=== PATIENT | female | born 1945 | race Caucasian/White ===

== ENCOUNTER 2017-11-24 17:36 | Inpatient (IN) | payer OTHER ==
[~2017-11-24] VITALS: Ht 157.5 cm; Wt 97.3 kg
--- NOTE | ~2017-11-24 | EKG ---
[place] [address] ELECTROCARDIOGRAM REPORT Name: RUPINDER BRADEN Room: [address] IN [facility]#: [id number] Admission: 11/24/17 Attend Phys: Amol Rodriguez MD Discharge: Date of : 41 Report #: [id number] THIS REPORT FOR: //name// [facility] ED Test Date: 2017-11-24 Test Time: 17:55:41 Pat Name: RUPINDER BRADEN Department: Room: Gender: F Chief Of Staff Doctor: : 1945 Requested By: Gurpreet Mohr Order Number: [id number] MD: Measurements Intervals [place] Rate: 133 P: 48 CO: 151 QRS: -21 QRSD: 89 T: 63 QT: 275 QTc: 409 Interpretive Statements Sinus tachycardia Borderline left axis deviation Consider anterior infarct Compared to ECG 08/13/2013 22:04:23 Myocardial infarct finding now present Sinus rhythm no longer present [email or web address] By: 1755 1755 Epiphany EpiphanyMD /EPI
[~2017-11-24 17:36] MED LIST: ACETAMINOPHEN325 M1 PO; ACTOPLUS MET 11 EAC1; ACTOS 30 MG TAB30 MG; AMARYL4 MG PO; COLACE 100 MG100 MG PO; DIFLUCAN150 MG; GLUCOPHAGE1000 MG; LAXATIVE OF CHOICE; LISINOPRIL-HCT1 EAC1; NITROQUICK0.4 MG; NORCO 5-325 TA1 EACH PO; TOBREX5 ML OP; [UNRECOGNIZED DRUG - OTHER]
[2017-11-24 17:47] VITALS: BP 108/84
[2017-11-24] MEDS ORDERED: CINNAMON500 MG PO (18:44)
[2017-11-24] MEDS ORDERED: LANTUS100 UNIT/M SUBQ (18:45)
[2017-11-24] MEDS ORDERED: FLAXSEED1000 MG PO (18:45)
[2017-11-24] MEDS ORDERED: GLUCOTROL5 MG PO (18:45)
[2017-11-24] MEDS ORDERED: DIFLUCAN200 MG PO (18:45)
[2017-11-24] MEDS ORDERED: NAPROSYN500 MG PO (18:46)
[2017-11-24] MEDS ORDERED: OMEPRAZOLE20 M2 PO (18:46)
[2017-11-24 19:08] LABS: HEMATOCRIT 25.9 % (37.0-47.0); HEMOGLOBIN 8.6 gm/dL (12.0-15.0); MCH 27.3 pg (26.0-34.0); MCHC 33.2 g/dL (28.0-37.0); MCV 82.3 fL (80.0-100.0); MPV 9.5 fl. (7.2-11.1); NUCLEATED RBCS 0 /100WBC; PLATELET COUNT* 138 thou/uL (150-400); RBC 3.14 mil/uL (4.20-5.00); RDW-CV 15.4 % (10.5-14.5); WBC 34.6 thou/uL (4.0-11.0)
[2017-11-24 19:13] LABS: INR 1.3; PROTIME 12.7 Seconds (9.20-11.50)
[2017-11-24 19:14] LABS: ANION GAP 15 mmol/L (7-16); BUN 64 mg/dL (7-18); CALCIUM 8.2 mg/dL (8.5-10.1); CHLORIDE 97 mmol/L (98-107); CO2 16 mmol/L (21-32); CREATININE 3.2 mg/dL (0.6-1.3); GLUCOSE 248 mg/dL (70-99); POTASSIUM 4.7 mmol/L (3.5-5.1); SODIUM 128 mmol/L (136-145)
[2017-11-24 19:24] LABS: ABSOLUTE MONOCYTES 0.3 thou/uL (0.0-1.2); ABSOLUTE NEUTROPHILS 33.2 thou/uL (1.6-8.1)
[2017-11-24 19:32] LABS: ALBUMIN 2.2 g/dL (3.4-5.0); ALKALINE PHOSPHATASE 55 U/L (46-116); CK-MB MASS 3.6 ng/mL (<0.5-3.6); LIPASE 39 U/L (73-393); MAGNESIUM 1.2 mg/dL (1.8-2.4); NT-PRO BRAIN NAT PEPTIDE 7452 pg/mL (<300); SGOT 37 U/L (15-37); SGPT 28 U/L (30-65); TOTAL BILIRUBIN 0.4 mg/dL (<0.1-1.0); TOTAL PROTEIN 5.9 g/dL (6.4-8.2); TROPONIN-I LEVEL <0.06 ng/mL (<0.06)
[2017-11-24 21:53] LABS: URINE BLOOD 3+ (Negative); URINE CLARITY TURBID; URINE COLOR BROWN; URINE GLUCOSE-RANDOM NEGATIVE (Negative); URINE KETONES NEGATIVE (Negative); URINE NITRITE-REFLEX NEGATIVE (Negative); URINE PROTEIN 3+ (Negative); URINE UROBILINOGEN 0.2 E.U./dl (0.2-1.0)
[2017-11-24 21:59] LABS: ICTOTEST (BILI CONFIRMATORY) Negative (Negative); URINE BILIRUBIN 1+ (Negative); URINE LEUKOCYTES-REFLEX 3+ (Negative)
[2017-11-24 22:20] VITALS: BP 144/58
[2017-11-24 22:20] LABS: CASTS None Seen /LPF (None Seen)
[2017-11-24 22:21] LABS: SQUAMOUS 4-10 Moderate /LPF (0-3); URINE RBC >20 Many /HPF (0-2); URINE WBC-REFLEX >25 Many /HPF (0-5)
[2017-11-24 22:22] LABS: CRYSTALS None Seen /LPF (None Seen)
[2017-11-24 23:15] VITALS: BP 136/61
[2017-11-25] VITALS (20 sets, daily range): BP systolic 102–142; BP diastolic 51–67
[2017-11-25 04:39] LABS: ABSOLUTE EOSINOPHILS 0.1 thou/uL (0.0-0.7); ABSOLUTE LYMPHOCYTES 0.3 thou/uL (0.8-5.3); ABSOLUTE MONOCYTES 0.7 thou/uL (0.0-1.2); ABSOLUTE NEUTROPHILS 27.4 thou/uL (1.6-8.1); BASOPHILS 0.1 %; EOSINOPHILS 0.2 %; HEMATOCRIT 27.2 % (37.0-47.0); MCH 27.4 pg (26.0-34.0); MCHC 33.2 g/dL (28.0-37.0); MCV 82.5 fL (80.0-100.0); MONOCYTES 2.5 %; MPV 9.7 fl. (7.2-11.1); NUCLEATED RBCS 0 /100WBC; PLATELET COUNT* 120 thou/uL (150-400); POLYS 96.2 %; RBC 3.29 mil/uL (4.20-5.00); RDW-CV 15.4 % (10.5-14.5); WBC 28.5 thou/uL (4.0-11.0)
[2017-11-25 04:47] LABS: ALBUMIN 2.1 g/dL (3.4-5.0); CALCIUM 8.5 mg/dL (8.5-10.1); CREATININE 3.6 mg/dL (0.6-1.3); POTASSIUM 4.6 mmol/L (3.5-5.1); TOTAL BILIRUBIN 0.4 mg/dL (<0.1-1.0)
[2017-11-25] MEDS ORDERED: IBUPROFEN 200200 M1 PO (07:49)
[2017-11-25] MEDS ORDERED: ZOCOR20 MG PO (07:49)
--- NOTE | 2017-11-25 08:01 | NUR ---
Pt admitted to ICU from ED at 2315. Pt tachypneic upon arrival, and O2 sats dropped to upper 80s on 4L per NC. BIPAP placed, and O2 sats improved. RR decreased to 20s and appears at ease, though c/o dry mouth d/t BIPAP. C/O pain to back and abdomen. Tylenol given and position changed which yielded some relief. VSS. Voided 75 ml purulent and blood-tinged urine X2 overnight, voiding per bed truong. Will continue to monitor.
--- NOTE | 2017-11-25 09:43 | NUR ---
PATIENT CARE ASSUMED AT 0700. PATIENT AOX4, ON BIPAP. BIPAP REMOVED AND PLACED ON 4L NC, SAT AT THIS TIME 97%. UROLOGY CONSULTED FOR 7MM RENAL STONE. STATED THAT THEY WILL TAKE PATIENT TO SURGERY AT [address]ENT FOR PYLEONEPHRITIS. CONSENT OBTAINED FROM PATIENT. UNABLE TO REACH . SON, MARGARITO, CALLED AND UPDATED ON PLAN OF CARE AND ENCOURAGED HIM TO CALL THE PATIENT'S . DENTURES PLACED IN DENTURE CUP WITH EFFERDENT. PATIENT'S [place] RING PLACED IN BELONGINGS. MOUTH SWABS PROVIDED WITH MOUTH MOISTURIZER. HEMATOLOGY VISITED WITH PATIENT FOR ENLARGED ABDOMINAL LYMPH NODES. STATED THEY WERE ALMOST THE SAME THE PREVIOUS SCAN IN 2015, BUT THAT PATIENT SHOULD TAKE CARE OF KIDNEY INFECTION FIRST, AND SEE HIM IN 4 WEEKS OUTPATIENT IN HIS CLINIC FOR POSSIBLE PET SCAN. PATIENT EDUCATION REINFORCED BY NURSE, AND SHE VOICES UNDERSTANDING OF THIS. PATIENT REPORTS RIGHT FLANK PAIN THAT RADIATES TO ABDOMEN, BUT DENIES NEEDS FOR MEDICATION AT THIS TIME. REPOSITIONED FOR COMOFRT. DENIES FURTHER NEEDS FROM NURSING. AWAITING SURGICAL INTERVENTION AT 1130.
--- NOTE | 2017-11-25 10:35 | NUR ---
SPOKE WITH PT, SHE LIVES WITH HER , HAS BEEN ACTIVE AND INDEP. PT DENIES ANY DISCHARGE NEEDS AT THIS TIME. PT GOING TO SURGERY THIS AFTERNOON FOR STENT PLACEMENT FOR OBSTRUCTING KIDNEY STONES. CASE MGT TO CONTINUE TO FOLLOW.
--- NOTE | 2017-11-25 13:47 | NUR ---
PATIENT PLACED ON BEDPAN, UPON TAKING PATIENT OFF BEDPAN, HR NOTED TO BE 150S-170S AND IRREGULAR. EKG COMPLETED WHICH RESULTED A-FIB. ANESTHESIOLOGY IN ROOM, WHO ORDERED CARDIOLOGY CONSULT. DR MENJIVAR ON THE FLOOR, ONETIME DIGOXIN ORDERED AND GIVEN. AMIODARONE BOLUS GIVEN. AMIO GTT INFUSING. DR ROBERT IN TO SEE PATIENT, WHO STATED HE WAS TAKING PATIENT TO OR REGAURDLESS. PATIENT LEFT UNIT AT 1340 WITH OR NURSES. AMIO INFUSING AT TRANSFER TO OR.
[2017-11-25 13:58] LABS: CHOLESTEROL 77 mg/dL (<200); HDL CHOLESTEROL 10 mg/dL (>40); LDL CHOLESTEROL 34 mg/dL (<100); SERUM ASSESSMENT Clear; TC:HDL 7.7 Ratio (Not establshd); TRIGLYCERIDE 165 mg/dL (<150); VLDL 33 mg/dL (<40)
--- NOTE | 2017-11-25 14:37 | NUR ---
PATIENT RETURNED FROM OR AT 1428. AOX4, COMPLAINING OF NEEDING TO URINATE. URINARY CATHETER NOW PRESENT. PATIENT REMAINS A-FIB RVR WITH RATE 130-160S. AMIO GTT STILL RUNNING. PATIENT REQUIRING MORE O2, PLACED BACK ON BIPAP WITH FIO2 OF 40%. DR GRAY NOTIFIED OF PATIENT STATUS.
--- NOTE | 2017-11-25 15:52 | 2DMMODE ---
[place] [address] 2 D/M-MODE ECHOCARDIOGRAM Name: RUPINDER BRADEN Room: [address] IN [facility]#: [id number] Admission: 11/24/17 Attend Phys: Aoml Rodriguez, Discharge: Date of : 41 Date of Service: 11/25/17 1552 Report #: [id number] THIS REPORT FOR: //name// APPROVED REPORT Study performed: 11/25/2017 14:31:19 EXAM: Comprehensive 2D, Doppler, and color-flow Echocardiogram Patient Location: In-Patient Room #: [facility] [place] Status: routine BSA: 1.97 HR: 159 bpm BP: 134/65 mmHg Rhythm: Atrial Fibrillation Other Information Study Quality: Good Indications Atrial Fibrillation Sepsis 2D Dimensions LVEF(%): 87.45 (>50%) IVSd: 9.49 (7-11mm) LVOT Diam: 18.28 (18-24mm) LVDd: 36.43 mm PWd: 8.65 (7-11mm) Ascending Ao: 29.92 (22-36mm) LVDs: 15.88 (25-40mm) Aortic Root: 29.93 mm Coughlin's LVEF: 87.45 % Volumes Left Atrial Volume (Systole) LA ESV Index: 17.20 mL/m2 Aortic Valve AoV Peak Edson.: 1.52 m/s AO Peak Gr.: 9.19 mmHg LVOT Max P.39 mmHg AO Mean Gr.: 5.36 mmHg LVOT Mean P.80 mmHg LVOT Max V: 1.26 m/s AO V2 VTI: 18.50 cm LVOT Mean V: 0.76 m/s CHARLINE (VTI): 2.05 cm2 LVOT V1 VTI: 14.44 [place] [address] 2 D/M-MODE ECHOCARDIOGRAM Name: RUPINDER BRADEN Room: [address] IN [facility].#: [id number] Admission: 11/24/17 Attend Phys: Amol Rodriguez, Discharge: Date of : 41 Date of Service: 11/25/17 1552 Report #: [id number] PV Peak Edson.: 1.23 m/s PV Peak Gr.: 6.04 mmHg Tricuspid Valve RAP Estimate: 5.00 mmHg TR Peak Gr.: 32.30 mmHg RVSP: 37.30 mmHg PA Pressure: 37.00 mmHg Left Ventricle The left ventricle is normal size. There is normal LV segmental wall motion. There is normal left ventricular wall thickness. Left ventricular systolic function is hyperdynamic. LVEF is >70%. This study is not technically sufficient to allow evaluation of the LV diastolic function. Right Ventricle The right ventricle is normal size. The right ventricular systolic function is normal. Atria The left atrium size is normal. The right atrium size is normal. Aortic Valve The Aortic valve is sclerotic. No aortic regurgitation is present. There is no aortic valvular stenosis. Mitral Valve The mitral valve is normal in structure. There is no mitral valve regurgitation noted. No evidence of mitral valve stenosis. Tricuspid Valve The tricuspid valve is normal in structure. Trace tricuspid regurgitation. Mild pulmonary hypertension. The RVSP is 40-45 mmHg. Pulmonic Valve The pulmonary valve is normal in structure. There is no pulmonic valvular regurgitation. Great Vessels The aortic root is normal in size. IVC is normal in size and collapses with >50% inspiration Pericardium There is no pericard[place] [address] 2 D/M-MODE ECHOCARDIOGRAM Name: RUPINDER BRADEN Room: [address]#: [id number] Admission: 11/24/17 Attend Phys: Amol Rodriguez, Discharge: Date of : 41 Date of Service: 11/25/17 1552 Report #: [id number] <Conclusion> The left ventricle is normal size. There is normal left ventricular wall thickness. Left ventricular systolic function is hyperdynamic. LVEF is >70%. This study is not technically sufficient to allow evaluation of the LV diastolic function. The Aortic valve is sclerotic. Trace tricuspid regurgitation. Mild pulmonary hypertension. The RVSP is 40-45 mmHg. <ELECTRONICALLY SIGNED> By: Nelson Galloway MD, FACC 11/25/17 [phone] Nelson Galloway MD, FACC /INF
--- NOTE | 2017-11-25 17:30 | NUR ---
PATIENT PROGRESSING TOWARDS GOALS. RIGHT URETERAL STENT PLACED BY UROLOGY TODAY. HAISRTON CATEHETER IN PLACE. OUTPUT POOR THIS SHIFT, DR GRAY AWARE. REFER TO I&O. PAIN CONTROLLED NOW AT THIS TIME POST DIALUDID ADMINISTRATION. PATIENT STATES SHE ONLY HAS THE SENSATION TO PEE. MESSAGE SENT TO PHYSICIAN PROGRAM OFFICER FOR PYRIDIUM PRN. PATIENT HR CONVERTED TO SINUS TACYCARDIA AT 1629 AFTER SECOND ADMINISTRATION OF DIGOXIN. RATE 110S TO 120S. ALL OTHER VITALS REMAIN WNL. AFEBRILE TODAY. PATIENT GIVEN PUDDING WITH INSULIN ADMINISTRATION. TOLERATED WELL. REGULAR DIET ORDERED FOR THIS EVENING. WATER PITCHER PROVIDED PER PATIENT REQUEST. DENIES FURTHER NEEDS FROM NURSING.
[2017-11-26] VITALS (9 sets, daily range): BP systolic 113–147; BP diastolic 43–63
[2017-11-26 04:47] LABS: ABSOLUTE EOSINOPHILS 0.3 thou/uL (0.0-0.7); ABSOLUTE LYMPHOCYTES 0.4 thou/uL (0.8-5.3); ABSOLUTE MONOCYTES 0.4 thou/uL (0.0-1.2); ABSOLUTE NEUTROPHILS 22.6 thou/uL (1.6-8.1); BASOPHILS 0.1 %; EOSINOPHILS 1.2 %; HEMATOCRIT 24.5 % (37.0-47.0); HEMOGLOBIN 8.1 gm/dL (12.0-15.0); LYMPHOCYTES 1.6 %; MCH 27.2 pg (26.0-34.0); MCHC 33.2 g/dL (28.0-37.0); MCV 82.1 fL (80.0-100.0); MONOCYTES 1.6 %; MPV 9.9 fl. (7.2-11.1); NUCLEATED RBCS 0 /100WBC; PLATELET COUNT* 63 thou/uL (150-400); POLYS 95.5 %; RBC 2.98 mil/uL (4.20-5.00); RDW-CV 15.9 % (10.5-14.5); WBC 23.7 thou/uL (4.0-11.0)
[2017-11-26 04:58] LABS: ALBUMIN 1.8 g/dL (3.4-5.0); CALCIUM 8.1 mg/dL (8.5-10.1); CREATININE 3.6 mg/dL (0.6-1.3); POTASSIUM 4.4 mmol/L (3.5-5.1); TOTAL BILIRUBIN 0.4 mg/dL (<0.1-1.0); TOTAL PROTEIN 5.7 g/dL (6.4-8.2)
[2017-11-26 05:25] LABS: PREALBUMIN 10.2 mg/dL (18.0-35.7)
--- NOTE | 2017-11-26 06:45 | NUR ---
Pt repositioned about every 2 hours for comfort. O2 at 6L per NC. Pt was SOA at bedtime, but refused BIPAP when offered. After repositioning and adding humidifier to O2, pt reported she felt better but c/o abd pain. Dilaudid given per order, and pt rested well afterwards. Poor urine output, 225 mls purulent blood-tinged urine out per adame. Cr remains 3.6. Na+ down from 128 to 126. Platelets down to 63. Pt receiving SubQ heparin. VSS. No complaints this am. Will continue to monitor.
--- NOTE | 2017-11-26 08:01 | CON ---
[address] [address] CONSULTATION Name: RUPINDER BRADEN Room: [address] IN [facility]#: [id number] Admission: 11/24/17 Attend Phys: Amol Rodriguez MD Discharge: Date of : 41 Report #: [id number] THIS REPORT FOR: //name// CC: Amol Salas DATE OF SERVICE: 11/25/2017 ATTENDING PHYSICIAN: Amol Rodriguez MD REASON FOR EVALUATION: Obstructive uropathy complicated by gram-negative septicemia. HISTORY OF PRESENT ILLNESS: Chart reviewed, the patient examined. This is a 72-year-old with a fairly significant medical history, has diabetes mellitus who was admitted subsequent to a fall. She became weak after at least 48 hours of she describes as dry heaves. Evaluation noted marked pyuria. CT evidence showed 7 mm calculus at the level of the right ureterovesicular junction, mild to moderate hydronephrosis and perinephric stranding. Blood cultures now with growth of gram-negative rods. Initial lactic acid of 3.3, repeat was 1.8. She is at least mildly encephalopathic and has admitted to some breathing difficulties. ALLERGIES: Oxybutynin. CURRENT MEDICATIONS: Include pantoprazole, ceftazidime, Flagyl, ipratropium, albuterol inhaler, p.r.n. analgesics, antiemetics. PAST MEDICAL HISTORY: Includes hyperlipidemia, peripheral neuropathy, diverticulosis, reflux, diabetes mellitus, hypertension, osteoarthritis, anemia. SOCIAL HISTORY: Nonsmoker, no ethanol. FAMILY HISTORY: Noncontributory. REVIEW OF SYSTEMS: As above. PHYSICAL EXAMINATION: GENERAL: She appears ill. She is responsive, moderate distress, appears somewhat chronically ill, undernourished. VITAL SIGNS: Temperature 99, T-max more recently 98.3, pulse 114, respirations 30, blood pressure 142/67. SKIN: Warm, dry, no rashes. HEENT: Unremarkable. NECK: Supple. LUNGS: Few [place] [address] CONSULTATION Name: RUPINDER BRADEN Room: [address]#: [id number] Admission: 11/24/17 Attend Phys: Amol Rodriguez MD Discharge: Date of : 41 Report #: [id number] HEART: Regular, tachycardic. I do not appreciate any murmur. ABDOMEN: Soft, nontender. There are no peritoneal signs. GENITOURINARY: Deferred. RECTAL: Deferred. LABORATORY DATA: Blood cultures described above, 2/ with gram-negative rods, collected last evening. CBC: White count of 28.5 which is down from 34.6 on admission, H and H 9.0 and 27.2, platelets of 120. Electrolytes: Sodium 128, potassium 4.6, chloride 90, bicarbonate is 16, BUN and creatinine 72 and 3.6, glucose of 241. Albumin of 2.1, total protein 6.0. LFTs unremarkable. Estimated GFR of 12. Prealbumin of 13.7. ASSESSMENT: Obstructive uropathy secondary to ureteral stone on the right. Noted plans for surgery. We will continue empiric therapy, ceftazidime should be adequate, is adjusted for renal dysfunction at 1 gram daily. I think she will turn around fairly quickly of the obstruction. We will monitor expectantly. Certainly at risk for other complications such as pneumonitis. <ELECTRONICALLY SIGNED> By: Miguel Jeong MD 11/26/17 0801 1201 1922Joheather Jeong MD /nt
--- NOTE | 2017-11-26 08:09 | CON ---
[address] [address] CONSULTATION Name: RUPINDER BRADEN Room: [address] IN .R.#: [id number] Admission: 11/24/17 Attend Phys: Amol Rodriguez MD Discharge: Date of : 41 Report #: [id number] THIS REPORT FOR: //name// CC: Amol Salas DATE OF SERVICE: 11/25/2017 REASON FOR CONSULTATION: Mesenteric lymphadenopathy. SUBJECTIVE: This is a 72-year-old female who was brought to the Emergency Room because of fall. She reported some nausea, vomiting and diarrhea. However, her legs per the patient gave away and fell down. There is no previous injury or trauma. She was hypotensive upon arrival. The patient denies any B symptoms like drenching night sweats, fever, weight loss. Initial evaluation including CT of abdomen revealed a 7 mm calculus at the right ureterovesicular junction. There was also moderate right hydronephrosis with perinephric soft tissue stranding, mild prominent mesenteric lymph nodes nonspecific, could be reactive, similar were seen in April 2015. However, there was increased number of the size of lymph nodes compared to prior examination. CT of the chest showed patchy bibasilar atelectasis/pneumonitis with a small pleural effusion. REVIEW OF SYSTEMS: All systems were reviewed. It was negative except the above. PAST MEDICAL HISTORY: Dyslipidemia, peripheral neuropathy, diverticulosis, GERD, diabetes mellitus, hypertension, osteoarthritis. PAST SURGICAL HISTORY: Hysterectomy, gallbladder, D and C. MEDICATIONS: Per admission list. ALLERGIES: OXYBUTYNIN. SOCIAL HISTORY: No smoking, no alcohol abuse, no drug abuse. FAMILY HISTORY: Noncontributory. PHYSICAL EXAMINATION: VITAL SIGNS: Temperature 36.8, pulse is 110, respirations 20, blood pressure is 135/64, SpO2 was 97% on BiPAP with 4 liters of nasal cannula. GENERAL: The patient looked tired. However, she was weak and able to answer questions. LUNGS: Decreased breathing sounds with mild fine crackles. ABDOMEN: Mild generalized tenderness. However, [place] [address] CONSULTATION Name: RUPINDER BRADEN Room: [address] IN [facility]#: [id number] Admission: 11/24/17 Attend Phys: Amol Rodriguez MD Discharge: Date of : 41 Report #: [id number]. EXTREMITIES: +1 edema bilaterally. LABORATORY DATA: Today, WBC 28.5, hemoglobin 9.9, platelets 120. Sodium is 128, creatinine 3.6. IMAGING: As mentioned above. ASSESSMENT AND PLAN: A 72-year-old female who has been evaluated because of mild prominent mesenteric lymphadenopathy that was present back in 2014. However, there was increase in size and number, was admitted because of urosepsis and renal failure and right pleural effusion. RECOMMENDATION: At this point, the patient is receiving medical treatment with antibiotics. The patient was going for right stent placement due to hydronephrosis. I recommended to obtain a PET/CT scan as an outpatient after she has recovered from an infection and arranged for Interventional Radiology biopsy as an outpatient. At this point, I prefer to avoid any biopsies with active infection. I will follow the patient during hospitalization. <ELECTRONICALLY SIGNED> By: Alonzo Constantino MD 11/26/17 0809 1009 [id number] Constantino MD /nt
--- NOTE | 2017-11-26 10:07 | NUR ---
PATIENT CARE ASSUMED AT 0700. PATIENT AOX4 UPON ASSUMING CARE. DENIES PAIN, JUST REPORTS IRRITATION TO BLADDER FROM CATEHTER. PYRIDIUM GIVEN WITH MORNING MEDICATIONS, PATIENT REPORTED COMPLETE RELIEF. VITALS STABLE. TRACING SINUS TACH ON SENIOR RELIABILITY ENGINEER. AMIODARONE GTT AT 0.5 MG UPON ASSUMING CARE, CARDIOLOGY CONVERTED TO PO MEDICATIONS. 0.45% NS WITH 75 MEQ BICARB INFUSING PER ORDERS AT 150 ML/HR UPON ASSUMING CARE, NEPHROLOGY DECREASED RATE TO 60 ML/HR. ON 6L NC WITH O2 SAT 95-97%. ATTEMPTED TO USE BED MOHR X2, NO BOWEL MOVEMENT. PASSING FLATUS. DENIES NEW CONCERNS FOR NURSING STAFF. DOWNGRADED TO TELEMETRY STATUS. REPORT GIVEN TO RAGHAV MILLER. PENDING TRANSPORT.
--- NOTE | 2017-11-26 10:12 | EKG ---
[place] [address] ELECTROCARDIOGRAM REPORT Name: RUPINDER BRADEN Room: [address] ADM IN .R.#: [id number] Admission: 11/24/17 Attend Phys: Amol Rodriguez MD Discharge: Date of : 41 Report #: [id number] THIS REPORT FOR: //name// [facility] Test Date: 2017-11-25 Test Time: 12:50:16 Pat Name: RUPINDER BRADEN Department: Room: [address] Gender: F Remote Medical Coder: UNKNOWN : 1945 Requested By: Nelson Galloway Order Number: [id number] Reading MD: Lucho Trinh Measurements Intervals [place] Rate: 153 P: HI: QRS: -22 QRSD: 91 T: 91 QT: 278 QTc: 444 Interpretive Statements Atrial fibrillation with rapid V-rate Borderline left axis deviation Low voltage, precordial leads Abnormal R-wave progression, late transition Nonspecific T abnormalities, lateral leads Compared to ECG 11/24/2017 17:55:41 Low QRS voltage now present T-wave abnormality now present Sinus tachycardia no longer present Electronically Signed On 11-26-2017 10:12:21 CDT by Lucho Trinh [email or web address] <ELECTRONICALLY SIGNED> By: Lucho Trinh MD, FACC 11/26/17 1012 1250 1250 Lucho Trinh MD, [facility] /EPI
[2017-11-26 10:15] LABS: APTT 42.5 Seconds (25.0-31.3); INR 1.1; PROTIME 11.1 Seconds (9.20-11.50)
--- NOTE | 2017-11-26 11:49 | NUR ---
RECEIVED REPORT FROM SHERON IN ICU AND ASSUMED CARE OF PT @ 1050.PT IS A/O,VSS,TRACING ST ON THE MONITOR.THIS NURSE DID ASSESSMENT AND REVIEWED PREVIOUS NURSE ASSESSMENT AND AGREES.IVS PATENT WITH FLUIDS INFUSING @ 60ML/HR.PT IS CALM AND COOPERATIVE WITH NO C/O PAIN AT TIME OF ASSESSMENT.FAMILY AT BEDSIDE.PT IS BEDREST WITH Q2 HOUR TURNS.WILL CONTINUE TO MONITOR.
--- NOTE | 2017-11-26 18:12 | NUR ---
VSS.PATROL POLICE SERGEANT IN PLACE.PT IS ST BUT GOES IN AND OUT OF AFIB WITH RATE 110S-130S.CARDIOLOGY NOTIFIED, THEIR RECOMMENDATIONS WERE TO CALL THEM BACK IF SUSTAINS IN THE 130S-140S.PT REMAINS ON 6L O2 NC.DENIED PAIN.IVF INFUSING PER ORDERS.HAIRSTON SECURE AND PATENT.HOURLY ROUNDING COMPLETED FOR PT SAFETY.PT REPOSITIONED EVERY TWO HOURS.CALL LIGHT AND FALL PRECAUTIONS IN PLACE.WILL CONTINUE TO MONITOR FOR DURATION OF SHIFT.BOONE GROSS AND MUCINEX ORDERED FOR COUGH PER PT REQUEST.
[2017-11-26 21:06] LABS: IgA 324 mg/dL (64-422); IgG 602 mg/dL (700-1600); IgM 26 mg/dL (26-217)
[2017-11-27 00:14] VITALS: BP 150/67
[2017-11-27 04:00] VITALS: BP 144/68
[2017-11-27 04:36] LABS: ABSOLUTE EOSINOPHILS 0.2 thou/uL (0.0-0.7); ABSOLUTE LYMPHOCYTES 0.4 thou/uL (0.8-5.3); ABSOLUTE MONOCYTES 0.7 thou/uL (0.0-1.2); ABSOLUTE NEUTROPHILS 16.3 thou/uL (1.6-8.1); BASOPHILS 0.2 %; EOSINOPHILS 0.8 %; HEMATOCRIT 25.5 % (37.0-47.0); HEMOGLOBIN 8.5 gm/dL (12.0-15.0); LYMPHOCYTES 2.4 %; MCH 27.2 pg (26.0-34.0); MCHC 33.6 g/dL (28.0-37.0); MCV 81.1 fL (80.0-100.0); MONOCYTES 4.2 %; MPV 9.8 fl. (7.2-11.1); NUCLEATED RBCS 0 /100WBC; POLYS 92.4 %; RBC 3.14 mil/uL (4.20-5.00); RDW-CV 15.7 % (10.5-14.5); WBC 17.7 thou/uL (4.0-11.0)
[2017-11-27 04:39] LABS: PLATELET COUNT* 38 thou/uL (150-400)
[2017-11-27 05:04] LABS: ALBUMIN 1.7 g/dL (3.4-5.0); CALCIUM 7.9 mg/dL (8.5-10.1); CREATININE 3.2 mg/dL (0.6-1.3); POTASSIUM 4.4 mmol/L (3.5-5.1); TOTAL BILIRUBIN 0.5 mg/dL (<0.1-1.0); TOTAL PROTEIN 5.7 g/dL (6.4-8.2)
[2017-11-27 05:10] LABS: ALBUMIN 1.8 g/dL (3.4-5.0); CALCIUM 7.7 mg/dL (8.5-10.1); CREATININE 3.3 mg/dL (0.6-1.3); MAGNESIUM 1.7 mg/dL (1.8-2.4); PHOSPHORUS* 2.4 mg/dL (2.5-4.9); POTASSIUM 4.2 mmol/L (3.5-5.1)
--- NOTE | 2017-11-27 06:57 | NUR ---
PATIENT RESTED IN BED, NO ACUTE CHANGES. PATIENT IS NOT SHOWING SIGNS DISTRESS. FALL PRECAUTIONS IN PLACE, BED ALARM ON, CALL LIGHT WITHIN REACH. PATIENT TUNRED Q 2 HOURS, NO KIDNEY STONES NOTED IN URINE.
--- NOTE | 2017-11-27 07:04 | NUR ---
DOCTOR NOTIFIED, OF CRITICAL LAB, PLT COUNT 38. NO NEW ORDERS.
[2017-11-27 07:58] VITALS: BP 106/61
--- NOTE | 2017-11-27 09:12 | CON ---
[address] [address] CONSULTATION Name: RUPINDER BRADEN Room: [address] IN .R.#: [id number] Admission: 11/24/17 Attend Phys: Amol Rodriguez MD Discharge: Date of : 41 Report #: [id number] THIS REPORT FOR: //name// CC: Amol Salas DATE OF SERVICE: 11/25/2017 CONSULTING PHYSICIAN: Amol Rodriguez MD. REASON FOR NEPHROLOGY CONSULTATION: Acute kidney injury. REASON FOR ADMISSION: Fall at home and increasing weakness. HISTORY OF PRESENT ILLNESS: This is a 72-year-old female who has a past medical history of diabetes mellitus, hypertension, hyperlipidemia, who came in after a fall at home. The patient's stated the patient was very weak and she has been having nausea, vomiting, diarrhea as well as pain on urination for the past few days and then finally, her legs gave way and she had a fall yesterday and that is why she was brought to the hospital. She was found to be quite hypotensive on arrival to the Emergency Room and her creatinine was found to be 3.2, sodium was found to be 128, and white count of 34.6. She was also found to have evidence of UTI, in fact right-sided pyelonephritis with a right UVJ 7 mm kidney stone with gsux-ky-wvmbqlic right hydronephrosis and perinephric stranding. She also had evidence of mesenteric lymphadenopathy which the patient is not aware from the past. She was started on antibiotics as well as IV fluids. Last night, she has made only 150 mL of urine and her creatinine has gone up to 3.6. Urology has also evaluated the patient already and she is going for right-sided ureteral stent placement today. The patient is just feeling very drowsy, but she is arousable and she is able to talk, but she is not able to provide full review of systems, she is just very weak. It seems that her diarrhea has improved. At home in addition to other medications, she also takes lisinopril, hydrochlorothiazide, metformin, as well as naproxen 500 mg twice a day. Her recent baseline creatinine is not known, but her creatinine was 1.2 in 2015. REVIEW OF SYSTEMS: As mentioned above, quite drowsy, but she is arousable and she is able to answer a few questions but not able to provide full review of systems. She is just very tired. She did have diarrhea, nausea, vomiting and burning on urination before she came in. Other review of systems is limited. ALLERGIES: OXYBUTYNIN. HOME MEDICATIONS: Which include pioglitazone, lisinopril, hydrochlorothiazide, metformin, cinnamon bark, flaxseed oil, fluconazole, glipizide, Lantus, naproxen, [place] [address] CONSULTATION Name: RUPINDER BRADEN Room: [address] IN [facility].#: [id number] Admission: 11/24/17 Attend Phys: Amol Rodriguez MD Discharge: Date of : 43 Report #: [id number] PAST MEDICAL AND SURGICAL HISTORY: Hyperlipidemia, hysterectomy, neuropathy in feet, gallbladder removal, diverticulosis, GERD, diabetes type 2, hypertension, osteoarthritis, anemia. FAMILY HISTORY: No history of kidney disease in the family that I know of, the patient did not report any family history of kidney problems. SOCIAL HISTORY: Lives at home with her . Does not smoke, drink alcohol or use recreational drugs. PHYSICAL EXAMINATION: VITAL SIGNS: Blood pressure was 135/64, temperature 36.6, pulse rate was 110, respiratory rate was 20, pulse ox was 97% on nasal cannula. GENERAL: She is drowsy, but she is arousable and seems to be oriented, but just very weak and not able to answer questions. HEAD, EYES, EARS, NOSE, AND THROAT: Mucous membranes are dry. NECK: No JVD. CHEST: Diminished breath sounds. No crackles or wheezing. CARDIOVASCULAR: S1, S2 normal. No murmurs heard. ABDOMEN: Soft, nondistended, nontender, and bowel sounds diminished. EXTREMITIES: There is no lower extremity edema, symmetric lower extremities. NEUROLOGIC FUNCTION: Gross neurological function seems to be intact. PSYCHIATRIC: Mood seems to be normal. GENITOURINARY: She has a Hoffman catheter right now, cannot check for CVA tenderness since the patient was not comfortable and has minimal urine output and cloudy urine. LABORATORY DATA: From this morning, WBC 28.5, hemoglobin was 9.0, platelet count was 120. Corrected sodium was 130, bicarbonate was 16, creatinine was 3.6, BUN was 72. Other labs were reviewed. IMAGING: Abdominal pelvic CT and other CTs and x-rays were reviewed. ASSESSMENT AND PLAN: 1. Acute kidney injury, which is because of dehydration, lisinopril, hydrochlorothiazide as well as NSAIDs: The patient looks dehydrated and she also has sepsis because of acute pyelonephritis and was also taking WILY inhibitor and hydrochlorothiazide as well as NSAIDs at home. So, all these medications have been held. The patient is still not making much urine and her creatinine is going up. She has evidence of right-sided obstruction with rnss-cl-rwbtteui hydronephrosis and is supposed to go for stenting today, which should help with her kidney function. We do not have a recent baseline creatinine, it will be helpful to obtain that. Change her IV fluids from normal saline and the current bicarbonate drip to half normal saline with 1.5 amps of sodium bicarbonate at 125 mL an hour. Try to keep a mean arterial pressure more [facility] [address] [place] [address] CONSULTATION Name: RUPINDER BRADEN Room: [address] IN [facility]#: [id number] Admission: 11/24/17 Attend Phys: Amol Rodriguez MD Discharge: Date of : 43 Report #: [id number]. 2. Obstructive uropathy: The patient has right-sided kidney stone, no history of kidney stones in the past, with nztf-fj-yrbhenam hydronephrosis, Urology is on board. Also, has evidence of right-sided pyelonephritis likely because of the stone. The patient is supposed to get stenting today. 3. Mesenteric lymphadenopathy. Hematology has been consulted to evaluate that. 4. Anion gap metabolic acidosis: Bicarbonate drip as mentioned above. 5. Hyponatremia: Corrected sodium is 130 and hyponatremia is because of hypovolemic reasons and continue with fluids and sodium should get better. 6. Bacteremia with gram-negative rods, likely due to urinary tract infection: The patient is getting antibiotics for that. She is getting ceftazidime as per primary team. Follow cultures. We will defer to primary team for further management of this. Thank you for this consultation. We will continue to follow along with you and plan was discussed with the patient as well as the patient's nurse. I did spend more than 40 minutes of critical care time in reviewing the patient's chart, ordering medications, reviewing other orders and examining the patient and discussion with the patient and the patient's nurse. <ELECTRONICALLY SIGNED> By: Magda Sandhu MD 11/27/17 0912 [id number] [id number] Sandhu MD /nt
--- NOTE | 2017-11-27 10:32 | CON ---
[address] [address] CONSULTATION Name: RUPINDER BRADEN Room: [address] IN .R.#: [id number] Admission: 11/24/17 Attend Phys: Amol Rodriguez MD Discharge: Date of : 43 Report #: [id number] THIS REPORT FOR: //name// CC: Amol Salas DATE OF SERVICE: 11/25/2017 INDICATION: Atrial fibrillation with rapid ventricular response, new in onset. HISTORY OF PRESENT ILLNESS: The patient is a 72-year-old who was admitted to the hospital with nephrolithiasis and evidence of hydronephrosis on the right. In this setting, she was found to have UTI. She was felt to have sepsis. She was in the process of being evaluated for possible kidney stone retrieval when she developed atrial fibrillation with rapid ventricular response rate. She notes shortness of breath and chest discomfort with this. She has no prior significant cardiac history. Cardiac risk factors include hypertension, dyslipidemia, and type 2 diabetes mellitus. A 12-lead EKG shows low voltage without acute ST segment changes. There is atrial fibrillation with rapid ventricular response rate noted. PAST MEDICAL HISTORY: 1. Type 2 diabetes mellitus. 2. Hyperlipidemia. 3. Hypertension. 4. Peripheral neuropathy. 5. Diverticulosis. 6. GERD. 7. Polyarthritis. 8. Anemia. PAST SURGICAL HISTORY: 1. Hysterectomy. 2. Cholecystectomy. 3. D and C. FAMILY HISTORY: Noncontributory. SOCIAL HISTORY: The patient is a nonsmoker. She does not drink alcohol. PHYSICAL EXAMINATION: VITAL SIGNS: Heart rate presently in the 150s and 160s, blood pressure 120/64. GENERAL: This is an anxious appearing elderly female, who does not appear to be in overt distress. HEENT: Extraocular muscles intact. [place] [address] CONSULTATION Name: RUPINDER BRADEN Room: [address]#: [id number] Admission: 11/24/17 Attend Phys: Amol Rodriguez MD Discharge: Date of : 43 Report #: [id number] NECK: Shows no jugular venous distention. There are no carotid bruits. CHEST: Reveals diminished breath sounds without expiratory wheezes or rales. CARDIAC: Reveals tachycardic rhythm that is irregularly irregular without obvious gallop or murmur. ABDOMEN: Reveals normal bowel sounds. The abdomen is soft, nontender. EXTREMITIES: Shows no edema. SKIN: Warm and dry. A 12-lead EKG shows atrial fibrillation with rapid ventricular response rate without acute ST segment abnormalities. Labs are reviewed. Sodium 128, potassium 4.6, chloride 98, bicarbonate 16, BUN 72, creatinine 3.6, serum glucose 241. Troponin less than 0.06. White blood cell count 28.5, hemoglobin 9.0, platelet count 120,000. Stress test 2 weeks ago showed normal LV systolic function and no evidence of infarct or ischemia. Chest x-ray shows patchy infiltrates versus atelectasis. IMPRESSION AND RECOMMENDATIONS: 1. Atrial fibrillation with rapid ventricular response. At this point in time, we will bolus with amiodarone and started on amiodarone drip. I will also give bolus of digoxin and digoxin load if the rate remains elevated. We will obtain echocardiogram. 2. Hypertension, adequately controlled on current cardiac regimen. 3. Diabetes, per primary care physician. 4. Nephrolithiasis with hydronephrosis. Plans for possible stone retrieval in the near future. The patient not at prohibitive risk from a cardiac standpoint to undergo surgery. 5. Hyperlipidemia. We will need to check fasting lipid profile at some point in time. 6. Anemia, appears to be stable. 7. Chest discomfort, likely due to atrial fibrillation with rapid ventricular response rate. Recent stress test showed no evidence of ischemia. We will follow clinically. <ELECTRONICALLY SIGNED> By: Nelson Galloway MD, FACC 11/27/17 1032 1320 [id number] Galloway MD, FACC /nt
--- NOTE | 2017-11-27 10:33 | NUR ---
RECEIVED REPORT FROM [place] AND ASSUMED CARE OF PT @ 7460.PT IS A/O X 2-3 BUT LETHARGIC,VSS,TRACING ST WITH 1ST DEGREE ON THE MONITOR.LUNG SOUNDS ARE CLEAR DIMINSHED.IV LEFT AC PATENT WITH FLUIDS RUNNING @ 60ML/HR.IV LEFT WRIST PATENT AND SALINE LOCKED.HAIRSTON SECURE AND PATENT.PT IS CALM AND COOPERATIVE WITH NO C/O PAIN AT TIME OF ASSESSMENT.PT LEFT RESTING IN BED WITH CALL LIGHT AND FALL PRECAUTIONS IN [place]. WILL CONTINUE TO MONITOR.
[2017-11-27 11:30] VITALS: BP 151/59
[2017-11-27 16:00] VITALS: BP 151/63
--- NOTE | 2017-11-27 17:31 | NUR ---
VSS,CARDIAC MONITORING IN PLACE WITH NO CHANGES THIS SHIFT.PT REMAINS ON 6L O2 NC.PT HAS BEEN LETHARGIC MOST OF SHIFT.PT IS WARM AND CLAMMY.BLOOD GLUCOSE,VITAL SIGNS,AND TEMP CHECKED ALL WNL.IVF INFUSING PER ORDERS.FAMILY HAS BEEN AT BEDSIDE.HAIRSTON SECURE AND PATENT.HOURLY ROUNDING COMPLETED FOR PT SAFETY.CALL LIGHT AND FALL PRECAUTIONS IN PLACE.WILL CONTINUE TO MONITOR FOR DURATION OF SHIFT.PT RECEIVED TESSLON PEARLS FOR COUGH PER REQUEST. RECORDS REQUEST SENT TO PCP FOR CREATNINE LEVELS TO SEND TO .
[2017-11-27 20:00] VITALS: BP 150/67
[2017-11-28 00:09] VITALS: BP 152/68
--- NOTE | 2017-11-28 03:03 | NUR ---
PATIENT RESTED IN BED. PATIENT IS ON CONTINUOUS PLUSE OX, O2 LEVELS WERE WELL CONTROLED. PATIENT LUNG SOUNDS ARE WHEEZING. FALL PRECAUTIONS IN PLACE, BED ALARM ON, CALL LIGHT WITHIN REACH, HOURLY ROUNDING OBSERVED.
[2017-11-28 04:09] VITALS: BP 147/74
--- NOTE | 2017-11-28 04:14 | NUR ---
RESPIRATORY NOTIFIED OF [facility] WHEEZING.
--- NOTE | 2017-11-28 04:17 | NUR ---
PATIENT WHEEZING DECREASED.
[2017-11-28 04:53] LABS: HEMATOCRIT 23.8 % (37.0-47.0); MCH 27.2 pg (26.0-34.0); MCHC 33.7 g/dL (28.0-37.0); MCV 80.8 fL (80.0-100.0); MPV 9.2 fl. (7.2-11.1); NUCLEATED RBCS 0 /100WBC; RBC 2.95 mil/uL (4.20-5.00); WBC 17.1 thou/uL (4.0-11.0)
[2017-11-28 05:00] LABS: PLATELET COUNT* 36 thou/uL (150-400)
--- NOTE | 2017-11-28 05:16 | NUR ---
DOCTOR MARINA NOTIFIED OF PATIENT'S CRITICAL LAB, PLT COUNT 36. NO NEW ORDERS.
[2017-11-28 05:44] LABS: ABSOLUTE LYMPHOCYTES 0.5 thou/uL (0.8-5.3); ABSOLUTE MONOCYTES 0.9 thou/uL (0.0-1.2); ABSOLUTE NEUTROPHILS 15.7 thou/uL (1.6-8.1); PLATELET ESTIMATE DECREASED
[2017-11-28 05:45] LABS: ANISOCYTOSIS 1+; POIKILOCYTOSIS 1+
[2017-11-28 08:00] VITALS: BP 128/62
[2017-11-28 09:52] LABS: CALCIUM 8.2 mg/dL (8.5-10.1); CREATININE 2.7 mg/dL (0.6-1.3); POTASSIUM 3.8 mmol/L (3.5-5.1)
[2017-11-28 12:16] VITALS: BP 141/66
--- NOTE | 2017-11-28 13:00 | NUR ---
VSS, ASSUMED CARE IN THE AM, ASSESSMENT PERFORMED AND CHARTED, FALL PRECAUTIONS IN PLACE AND CALL LIGHT IN REACH, PT IS ON 6LNC AND HAIRSTON IN PLACE AND DRAINIG, PT IS CONFUSED AND SLEEPY LUNGS ARE COARSE AND DIMMISHED. PT GOAL IS TO IMPROVE ACTIVITY AND SIT UP IN CHAIR AND IMPROVE BREATHING. PT IS TRACING SR ON THE MONIOTOR, PT IS A Q2 TUEN AND IS VERY WEAK, WILL FOLLOW WITH PLAN OF CARE,
[2017-11-28 15:09] LABS: KAPPA FREE LIGHT CHAINS 78.1 mg/L (3.3-19.4); LAMBDA FREE LIGHT CHAINS 94.3 mg/L (5.7-26.3)
[2017-11-28 15:49] VITALS: BP 140/56
[2017-11-28 20:00] VITALS: BP 157/68
[2017-11-29] VITALS: BP 163/65
[2017-11-29 04:00] VITALS: BP 157/61
--- NOTE | 2017-11-29 04:55 | NUR ---
PATIENT RESTED IN BED, NO ACUTE CHAGNES. PATIENT O2 LEVELS WERE WELL CONTROLLED. FALL PRECAUTIONS IN PLACE, BED ALARM ON, CALL LIGHT WITHIN REACH, HOURLY ROUNDING OBSERVED.
[2017-11-29 05:01] LABS: ABSOLUTE EOSINOPHILS 0.1 thou/uL (0.0-0.7); ABSOLUTE LYMPHOCYTES 0.4 thou/uL (0.8-5.3); ABSOLUTE MONOCYTES 0.8 thou/uL (0.0-1.2); ABSOLUTE NEUTROPHILS 15.1 thou/uL (1.6-8.1); BASOPHILS 0.1 %; EOSINOPHILS 0.6 %; HEMATOCRIT 25.2 % (37.0-47.0); HEMOGLOBIN 8.3 gm/dL (12.0-15.0); LYMPHOCYTES 2.3 %; MCH 26.7 pg (26.0-34.0); MCHC 32.8 g/dL (28.0-37.0); MCV 81.4 fL (80.0-100.0); MONOCYTES 4.9 %; MPV 9.1 fl. (7.2-11.1); NUCLEATED RBCS 0 /100WBC; POLYS 92.1 %; RDW-CV 16.1 % (10.5-14.5); WBC 16.4 thou/uL (4.0-11.0)
[2017-11-29 05:09] LABS: ALBUMIN 1.4 g/dL (3.4-5.0); CALCIUM 7.9 mg/dL (8.5-10.1); CREATININE 2.4 mg/dL (0.6-1.3); POTASSIUM 3.9 mmol/L (3.5-5.1); TOTAL BILIRUBIN 0.5 mg/dL (<0.1-1.0); TOTAL PROTEIN 5.2 g/dL (6.4-8.2)
[2017-11-29 05:15] LABS: PLATELET COUNT* 47 thou/uL (150-400)
--- NOTE | 2017-11-29 05:57 | NUR ---
PATIENT BEGAN TO COMPLAIN OF SOB, ALSO NEEDED INCREASE O2. DOCTOR RONALD NOTIFIED, LASIX ORDERED. DOCTOR ALSO NOTIFIED OF PLT COUNT NO NEW ORERS. RESPIRATORY ALSO NOTIFIED OF SOB. DOCTOR OPAL ALSO NOTIFIED OF SOB AND PLT COUNT. FLUIDS ORDER TO DC.
--- NOTE | 2017-11-29 06:31 | NUR ---
PATIENT O2 IS CURRENTLY 92-93% ON SIX LITERS.
--- NOTE | 2017-11-29 06:55 | NUR ---
PATIENT CURRENTLY SLEEPING O2 IS AT 96% ON 6 LITERS.
[2017-11-29 08:00] VITALS: BP 166/78
--- NOTE | 2017-11-29 08:12 | NUR ---
pt resting in bed, appears weak, opens eyes briefly to verbal commands, o to self only, can make simple needs known, denies chest pain, states sl SOB at rest, on O2 at 6l per NC, sats 96%, on cont pulse ox, given lasix by prev shift , has diursed 650 out
[2017-11-29 11:58] VITALS: BP 121/48
[2017-11-29 15:42] VITALS: BP 159/69
--- NOTE | 2017-11-29 17:56 | NUR ---
pt resting in bed, o x 2-3, multiple family mebers at bedside, recognizes, able to communicate, remains weak, q 2 hour turn , adame to DD, orange coored urine obn pyridium. Stool sent for C-DIFF was NEGATIVE , stool for OCCULT BLOOD was NEGATIVE, SR on monitor , denies chest pain, states sl SOB at resgt, cont on O2 at 6l per NC, sats mid 90s, cont pulse ox, denies pain
[2017-11-29 20:00] VITALS: BP 152/68
[2017-11-30] VITALS (7 sets, daily range): BP systolic 127–161; BP diastolic 57–77
[2017-11-30 05:16] LABS: HEMATOCRIT 25.9 % (37.0-47.0); HEMOGLOBIN 8.7 gm/dL (12.0-15.0); MCH 27.1 pg (26.0-34.0); MCHC 33.5 g/dL (28.0-37.0); MPV 8.9 fl. (7.2-11.1); RBC 3.19 mil/uL (4.20-5.00); RDW-CV 15.9 % (10.5-14.5); WBC 17.3 thou/uL (4.0-11.0)
--- NOTE | 2017-11-30 05:21 | NUR ---
PATIENT RESTED IN BED, NO ACUTE CHANGES. PATEINT PLUSE OX O2 LEVELS WERE WELL CONTROLED. PATIENT IS NOT SHOWING SIGNS OF DISTRESS. FALL PRECAUTIONS IN PLACE, BED ALARM ON, CALL LIGHT WIHTIN REACH, HOURLY ROUNDING OBSERVED. CALL TO DOCTOR REGUARDING PATIENT REQUEST FOR SLEEPING MED., SEE ORDERS. PATIENT TURNED Q2 HOURS.
[2017-11-30 05:43] LABS: ALBUMIN 1.4 g/dL (3.4-5.0); CREATININE 2.2 mg/dL (0.6-1.3); MAGNESIUM 1.6 mg/dL (1.8-2.4); POTASSIUM 3.8 mmol/L (3.5-5.1); TOTAL BILIRUBIN 0.6 mg/dL (<0.1-1.0); TOTAL PROTEIN 5.5 g/dL (6.4-8.2)
--- NOTE | 2017-11-30 12:33 | NUR ---
ASSUMED CARE OF PT AT 0715. PT REMAINS A&O X3 TO PERSON PLACE, AND TIME. PT HAS MOMENTS OF CONFUSION AND IS FORGETFUL. PT WAS BEING TURNED BY THE CN A WHEN HER IV ACCESS BECAME DISLODGED. PT HAD NO ROUTE FOR PAIN MEDS FOR C/O PAIN. NEW IV HAS BEEN PLACED IN LEFT AC WITH A SIGLE ATTEMPT AND NO DIFFICULTY. WILL REASESS PT PT AT THIS TIME. BLOOD SUGAR 251 THIS AM AND PRIOR TO LUNCH. [facility] HAS JUST ARRIVE AND THIS NURSE WILL ADMINISTER INSULIN PER MAR AND ASESS PAIN AT THIS TIME.
--- NOTE | 2017-11-30 18:26 | NUR ---
PT C/O ABD PAIN BUT REFUSED IV PAIN MEDS. SEVERAL OTHER OPTIONS WERE DISCUSSES WITH THE PT BUT PT REFUSED. NURSING WILL CONTINUE TO MONITOR.
--- NOTE | 2017-11-30 20:00 | NUR ---
RECEIVED REPORT AND ASSUMED CARE OF PT, ASSESSMENT COMPLETED. PT VISITING WITH FAMILY. STATES THAT DR SAID PT WOULD BE BETTER BY THE 14TH OF THE MONTH BECAUSE IT WAS THEIR ANNIVERSARY. TOLD THE PT THEN SHE NEEDED TO IMPROVE BY SAYING I CAN, I CAN AND WORKING TOWARDS THAT GOAL. PT DOES LITTLE TO HELP HERSELF, WILL NOT REACH FOR A DRINK OR ASSIST WITH TURNING. TELEMETRY SHOWING SR. WILL CONT TO MONITOR AND ASSIST NEEDED.
[2017-12-01 04:00] VITALS: BP 130/71
[2017-12-01 05:15] LABS: HEMATOCRIT 25.6 % (37.0-47.0); HEMOGLOBIN 8.5 gm/dL (12.0-15.0); MCH 26.9 pg (26.0-34.0); MCHC 33.1 g/dL (28.0-37.0); MCV 81.3 fL (80.0-100.0); MPV 9.4 fl. (7.2-11.1); RBC 3.15 mil/uL (4.20-5.00); WBC 15.9 thou/uL (4.0-11.0)
[2017-12-01 05:30] LABS: CALCIUM 7.9 mg/dL (8.5-10.1); MAGNESIUM 1.6 mg/dL (1.8-2.4); POTASSIUM 3.7 mmol/L (3.5-5.1)
--- NOTE | 2017-12-01 06:30 | NUR ---
PT HAS BEEN AWAKE ALL NIGHT WITH MULTIPLE COMPLAINTS. C/O MOUTH AND NOSE DRYNESS. DOES NOT LIKE OXYGEN PER NASAL CANNULA BECAUSE OF THE DRYNESS. WILL NOT ATTEMPT TO HELP DESK ASSOCIATE CUP TO DRINK BY HERSELF OR ASSIST WITH TURNING. SHE DOES TAKE OUT NC BUT CAN'T WIPE HER NOSE. PT BECOMING VERY DEFENSIVE WHEN ATTEMPTING TO ENCOURAGE TO DO MORE FOR HERSELF. TELEMETRY CONT TO SHOW SR. ACHIEVED ONLY GOAL OF SAFETY. HOURLY ROUNDING OBSERVED.
--- NOTE | 2017-12-01 09:37 | NUR ---
CM spoke with Pt and family regarding disposition. CM discussed need for skilled at dc, Pt in agreement but reluctant, but will go if necessary and would want to go to [facility], if they do not have availability, Pt's second choice is [facility]. Faxed referrals. Awaiting decision to accept.
[2017-12-01 09:39] VITALS: BP 145/59
[2017-12-01 12:00] VITALS: BP 147/57
[2017-12-01 16:00] VITALS: BP 124/51
--- NOTE | 2017-12-01 18:00 | NUR ---
PT FLAT. DEPRESSED. A/O X'S 4. VSS. AFEBRILE. 95% ON 3L NC. CONTINUOUS PULSE OXIMETRY IN PLACE. INCONTINENT OF BOWEL. HAIRSTON DRAINING ORANGE URINE. URINE STRAINED. NO STONE. BARRIER CREAM APPLIED TO BLANCHABLE COCCYX. ACTIVE RANGE OF MOTION ENCOURAGED. PT SAT IN CHAIR FOR ABOUT 2 HOURS. PT UP MAX ASSIST.
[2017-12-01 19:20] VITALS: BP 139/58
[2017-12-02 00:10] VITALS: BP 133/50
[2017-12-02 04:41] VITALS: BP 149/62
--- NOTE | 2017-12-02 04:54 | NUR ---
PT HAS A VERY FLAT AFFECT AND DOES NOT WANT TO DO ANYTHING FOR HERSELF. PT WAS ENCOURAGED TO HOLD CUP AND GIVE HERSELF WATER DURING SHIFT. PT OFTEN WILL NOT ANSWER WHEN SPOKEN TOO AND WILL IGNORE YOU. RESP REG AND UNALBORED SKIN W/D NO ACUTE DISTRESS NOTED.CONT P OX INTACT. O2 3L BNC INTACT. VSS AND NO ACUTE CHANGES DURING SHIFT. WILL CONTINUE TO MONTIOR. TELEMETRY PACK INTACT WITH ALARMS SET.
[2017-12-02 05:07] LABS: HEMATOCRIT 23.7 % (37.0-47.0); HEMOGLOBIN 7.8 gm/dL (12.0-15.0); MCH 26.9 pg (26.0-34.0); MCV 81.5 fL (80.0-100.0); MPV 9.2 fl. (7.2-11.1); NUCLEATED RBCS 0 /100WBC; PLATELET COUNT* 134 thou/uL (150-400); RBC 2.91 mil/uL (4.20-5.00); RDW-CV 15.7 % (10.5-14.5); WBC 13.8 thou/uL (4.0-11.0)
[2017-12-02 05:42] LABS: ALBUMIN 1.5 g/dL (3.4-5.0); CALCIUM 7.8 mg/dL (8.5-10.1); CREATININE 1.9 mg/dL (0.6-1.3); POTASSIUM 3.8 mmol/L (3.5-5.1); TOTAL BILIRUBIN 0.4 mg/dL (<0.1-1.0); TOTAL PROTEIN 5.5 g/dL (6.4-8.2)
[2017-12-02 07:15] LABS: ABSOLUTE LYMPHOCYTES 0.7 thou/uL (0.8-5.3); ABSOLUTE MONOCYTES 0.6 thou/uL (0.0-1.2); ABSOLUTE NEUTROPHILS 12.6 thou/uL (1.6-8.1)
[2017-12-02 08:22] VITALS: BP 137/58
--- NOTE | 2017-12-02 10:40 | NUR ---
ASSUMED CARE OF PATIENT AFTER REPORT THIS MORNING. PATIENT AWAKE, ALERT, AND ORIENTED APPROPRIATELY. PHYSICAL ASSESSMENT COMPLETED AND CHARTED. NO COMPLAINTS OF PAIN. GIVEN SCHEDULED MEDICATIONS, SEE EMAR FOR DOCUMENTATION. VITAL SIGNS STABLE. OXYGEN SATURATION WITHIN NORMAL LIMITS ON 3 LPM PER NASAL CANULA. TURNING PATIENT FREQUENTLY. HAD INCONTINENT BOWEL MOVEMENT THIS MORNING. TRANSFERS AND AMBULATES WITH MAXIMUM ASSISTANCE FROM STAFF. USES CALL LIGHT APPROPRIATELY. DENIES NEEDS AT THIS TIME. CALL LIGHT WITHIN REACH. FAMILY AT BEDSIDE. NURSING WILL CONTINUE TO MONITOR.
[2017-12-02 12:00] VITALS: BP 129/54
--- NOTE | 2017-12-02 12:27 | NUR ---
Faxed updated therapy notes to [facility]
--- NOTE | 2017-12-02 14:16 | NUR ---
Kacy from [facility] came to see Pt again, they are able to accept and have insurance auth. Updated Dr Rodriguez, plan dc tomorrow.
[2017-12-02 16:02] VITALS: BP 129/54
--- NOTE | 2017-12-02 17:29 | NUR ---
PATIENT STATUS REMAINS UNCHANGED. ALERT AND ORIENTED APPROPRIATELY, LETHARGIC AND DROWSY. ENSURE GIVEN WITH LUNCH AND DINNER. NO COMPLAINTS OF PAIN. SAT IN CHAIR AT BEDSIDE THIS AFTERNOON. DENIES NEEDS AT THIS TIME. CALL LIGHT WITHIN REACH. NURSING WILL CONTINUE TO MONITOR.
[2017-12-02 19:41] VITALS: BP 138/60
[2017-12-03] VITALS: BP 147/57
[2017-12-03 04:00] VITALS: BP 149/56
[2017-12-03 04:57] LABS: ALBUMIN 1.5 g/dL (3.4-5.0); CALCIUM 7.8 mg/dL (8.5-10.1); CREATININE 1.8 mg/dL (0.6-1.3); POTASSIUM 3.8 mmol/L (3.5-5.1); TOTAL BILIRUBIN 0.4 mg/dL (<0.1-1.0); TOTAL PROTEIN 5.7 g/dL (6.4-8.2)
[2017-12-03 05:04] LABS: ABSOLUTE EOSINOPHILS 0.1 thou/uL (0.0-0.7); ABSOLUTE LYMPHOCYTES 0.5 thou/uL (0.8-5.3); ABSOLUTE MONOCYTES 0.6 thou/uL (0.0-1.2); ABSOLUTE NEUTROPHILS 11.9 thou/uL (1.6-8.1); BASOPHILS 0.1 %; EOSINOPHILS 0.6 %; HEMATOCRIT 23.2 % (37.0-47.0); HEMOGLOBIN 7.7 gm/dL (12.0-15.0); LYMPHOCYTES 3.5 %; MCHC 33.2 g/dL (28.0-37.0); MCV 81.1 fL (80.0-100.0); MONOCYTES 4.7 %; MPV 9.1 fl. (7.2-11.1); NUCLEATED RBCS 0 /100WBC; PLATELET COUNT* 166 thou/uL (150-400); POLYS 91.1 %; RBC 2.86 mil/uL (4.20-5.00); RDW-CV 15.5 % (10.5-14.5); WBC 13.1 thou/uL (4.0-11.0)
--- NOTE | 2017-12-03 05:18 | NUR ---
PT AAOX3 BUT CAN BE FORGETFUL. PT IS UNWILLING TO DO ANYTHING FOR HERSELF, SHE REFUSES TO ANSWER QUESTIONS WHEN TALKING WITH HER. PT HAS A VERY FLAT AFFECT, TELEMETRY PACK INTACT WITH ALARMS SET. HAIRSTON INTACT AND PATENT DRAINING ORANGE URINE TO BEDSIDE BAG. VSS AND NO ACUTE CHANGES DURING SHIFT. WILL CONTINUE TO MONITOR. O2 3LBNC INTACT. CONT P OX INTACT. PT TURNED Q 2 HOURS.
[2017-12-03 05:59] LABS: PREALBUMIN 14.7 mg/dL (18.0-35.7)
[2017-12-03 08:02] VITALS: BP 137/52
--- NOTE | 2017-12-03 09:11 | NUR ---
ASSUMED CARE OF PATIENT AFTER REPORT THIS MORNING. PATIENT AWAKE, ALERT, AND ORIENTED APPROPRIATELY. LETHARGIC. PHYSICAL ASSESSMENT COMPLETED AND CHARTED. VITAL SIGNS STABLE. OXYGEN SATURATION WITHIN NORMAL LIMITS ON 3 LPM PER NASAL CANULA. GIVEN SCHEDULED MEDICATIONS WHOLE WITH WATER, SEE EMAR FOR DOCUMENTATION. PATIENT FED BREAKFAST BUT ENCOURAGED TO EAT ON HER OWN. TOOK A FEW BITES INDEPENDENTLY. DRANK AN ENSURE HIGH PROTEIN SHAKE BY HERSELF. USES CALL LIGHT APPROPRIATELY, WITHIN REACH. DENIES NEEDS AT THIS TIME. NURSING WILL CONTINUE TO MONITOR.
[2017-12-03] MEDS ORDERED: PACERONE 200 M200 M1 PO (10:47)
[2017-12-03] MEDS ORDERED: COLACE100 MG PO (10:49)
[2017-12-03] MEDS ORDERED: IPRAT-ALBUT 0.5-3 ML INH (10:52)
[2017-12-03] MEDS ORDERED: HUMALOG100 UNIT/1 SUBQ (10:53)
[2017-12-03] MEDS ORDERED: SERTRALINE HCL50 MG PO (10:56)
[2017-12-03] MEDS ORDERED: ASPIR 8181 M1 PO (10:59)
[2017-12-03 12:00] VITALS: BP 128/55
--- NOTE | 2017-12-03 13:45 | NUR ---
CM WAS INFORMED BY NURSING THAT THE PATIENT'S D/C WILL BE ON-HOLD FOR TODAY THE PATIENT IS HAVING 'TREMORS' AND WILL NEED A HEAD CT AND NEURO CONSULT PRIOR TO D/C. CM INFORMED V OF THIS INFO, AND THEY ARE IN AGREEMENT WITH THE PLAN. CM WILL REMAIN AVAILABLE TO ASSIST AND FOLLOW NEEDED.
[2017-12-03 16:00] VITALS: BP 141/55
--- NOTE | 2017-12-03 17:37 | NUR ---
PATIENT REMAINS ALERT AND ORIENTED APPROPRIATELY, BUT VERY LETHARGIC. TELEPSYCH CONSULT COMPLETED
--- NOTE | 2017-12-03 17:38 | NUR ---
PATIENT REMAINS ALERT AND ORIENTED APPROPRIATELY, BUT VERY LETHARGIC. COMPLETED TELEPSYCH CONSULT, RECOMMENDATIONS ON CHART. PATIENT HAS DRANK THREE HIGH PROTEIN ENSURES TODAY. STILL REQUIRING TO BE FED. INCONTINENT OF URINE AND BOWEL. DISCONTINUED HAIRSTON CATHETER AT 1200. PATIENT HAD HEAD CT THIS AFTERNOON, SEE RESULTS. DID NOT ASSIST IN TRANSFER AT ALL, DID NOT BEAR ANY WEIGHT WHEN TRANSFERRING FROM CHAIR TO WHEELCHAIR AND FROM WHEELCHAIR BACK TO BED. DENIES NEEDS AT THIS TIME. FAMILY AT BEDSIDE. CALL LIGHT WITHIN REACH. NURSING WILL CONTINUE TO MONITOR.
[2017-12-03 19:27] VITALS: BP 140/51
[2017-12-04 00:16] VITALS: BP 133/56
--- NOTE | 2017-12-04 04:45 | NUR ---
PT IS AAOX4. RESP REG AND UNLABORED SKIN W/D NO ACUTE DISTRESS NOTED. WASNOTED THAT PATIENT IS HAVING MILD HAND TREMORS. PT DENIES PAIN AND SOB. O2 3L BNC INTACT ANDCONT P OX INTACT. PT HAS HAD A GOOD NIGHT. VSS AND NO ACUTE CHANGES NOTED. TELEMETRY PACK INTACT. WILL CONITNUE TO MONITOR. PT HAS TRIED AT [facility] TO DO THINGS FOR SELF SUCH HOLD WATER.
[2017-12-04 05:32] VITALS: BP 130/47
[2017-12-04 08:00] VITALS: BP 129/42
[2017-12-04 12:04] VITALS: BP 148/65
[2017-12-04 16:52] VITALS: BP 139/62
--- NOTE | 2017-12-04 16:56 | NUR ---
CM SPOKE TO WALLACE AT [facility] TO INFORM THAT PATIENT IS READY TO D/C. WALLACE INFORMS THAT THE FACILITY IS 'NOT ABLE TO ACCEPT THE PATIENT' THEY 'HAVE MAXED ON ADMISSIONS FOR TODAY, BUT CAN ACCEPT THE PATIENT AT 0800 TOMORROW'. KASIA WITH [facility] ALSO CONTACTED CM TO INFORM THAT 'DESPITE ESCALATION TO ANCHO MANAGEMENT THEY ARE DECINING ADMIT UNTIL TOMORROW MORNING'. CM SPOKE TO NURSING TO INFORM OF THIS AND NURING CONTACTED TO RELAY THIS INFO. CM WILL REMAIN AVAILABLE TO ASSIST AND FOLLOW NEEDED.
--- NOTE | 2017-12-04 17:37 | NUR ---
ASSUMED PT CARE AT 0730, FULL ASSESMENT DONE CHARTED. PT ORINETED TO SELF AND KNOWS SHE IS IN THE HOSPITAL BUT CANNOT TELL ME WHAT ONE. PT HAS A FLAT AFFECT, NOT WILLING TO ANSWER ALL QUESTIONS, DOES NOT WANT TO EAT. DID EAT BOOST PUDDING AND DRINK BOOST TODAY. PT INCONT B/B, C/O NECK PAIN, PT REPOSITIONED Q2 HR. NEUROLOGY CONSULT DONE TODAY, CT OF THE SPINE DONE, RESULTS COMMUNICATED TO DR LLOYD, OK WITH DC TODAY. DR GRAY NOTIFIED AND OK WITH DC TODAY. CM SPOKE TO [facility] AND THEY ARE UNABLE TO TAKE PT TODAY, CAN TAKE PT IN THE AM TOMORROW. PT RESTING IN BED, HAS 4L O2 ON, SATS DROP INTO THE 80'S WHEN SLEEPING OR IF PT TAKES O2 OFF. ALL OTHER VSS, INSULIN GIVEN PER MAR. FAMILY UPDATED ON PLAN OF CARE. WILL CONTINUE TO MONITOR.
[2017-12-04 20:00] VITALS: BP 127/45
[2017-12-05] VITALS: BP 129/53
--- NOTE | 2017-12-05 01:20 | NUR ---
ASSUMED PT CARE AT 1930. ASSESSMENT COMPLETED CHARTED. PT HAS BEEN CALLING OUT FREQENTLY, HAS BEEN ABLE TO REACH OUT, GRAB WATER HERSELF. HAS BEEN HAVING JELLY LIKE STOOLS, MULTIPLE TIMES THIS SHIFT. ORANGE URINE DUE TO ABT. PT HAS BEEN DEPRESSED AND HAVING A HARD TIME SLEEPING. PT NOW RESTING IN BED. WILL CONTINUE TO MONITOR.
[2017-12-05 04:44] LABS: ABSOLUTE EOSINOPHILS 0.1 thou/uL (0.0-0.7); ABSOLUTE LYMPHOCYTES 0.3 thou/uL (0.8-5.3); ABSOLUTE MONOCYTES 0.6 thou/uL (0.0-1.2); ABSOLUTE NEUTROPHILS 12.2 thou/uL (1.6-8.1); BASOPHILS 0.1 %; EOSINOPHILS 0.8 %; HEMATOCRIT 21.8 % (37.0-47.0); HEMOGLOBIN 7.2 gm/dL (12.0-15.0); LYMPHOCYTES 2.6 %; MCH 26.8 pg (26.0-34.0); MCHC 33.2 g/dL (28.0-37.0); MCV 80.5 fL (80.0-100.0); MONOCYTES 4.6 %; NUCLEATED RBCS 0 /100WBC; PLATELET COUNT* 222 thou/uL (150-400); POLYS 91.9 %; RBC 2.71 mil/uL (4.20-5.00); RDW-CV 15.5 % (10.5-14.5); WBC 13.2 thou/uL (4.0-11.0)
[2017-12-05 04:47] VITALS: BP 141/53
[2017-12-05 05:00] LABS: ALBUMIN 1.6 g/dL (3.4-5.0); CALCIUM 7.8 mg/dL (8.5-10.1); POTASSIUM 3.5 mmol/L (3.5-5.1); TOTAL BILIRUBIN 0.4 mg/dL (<0.1-1.0); TOTAL PROTEIN 5.7 g/dL (6.4-8.2)
[2017-12-05 08:00] VITALS: BP 148/55
--- NOTE | 2017-12-05 11:10 | NUR ---
DONNA SPOKE TO WALLACE AT [facility] AND SHE INFORMS THAT THE FACILITY HAS A BED AVAILABLE AND IS ABLE TO ACCEPT THE PATIENT TODAY. DONNA INFORMED WALLACE THAT THE PATIENT IS ASSIGNED TO DR LEAVITT AND HE MUST SEE THE PATIENT PRIOR TO D/C. CM TO CONTACT WALLACE AT [facility] WHEN D/C ORDERS ARE WRITTEN. DONNA INFORMED NURSING, PATIENT, AND FAMILY OF THIS INFO AND THEY ARE IN AGREEMENT. DONNA WILL REMAIN AVAILABLE TO ASSIST AND FOLLOW NEEDED.
[2017-12-05] MEDS ORDERED: LASIX 20 MG TAB20 MG PO (12:17)
[2017-12-05 12:41] VITALS: BP 132/54
--- NOTE | 2017-12-05 15:52 | NUR ---
ASSUMED PT CARE AT 0730, FULL ASSESMENT DONE CHARTED. PT VERY DROWSY WITH FLAT AFFECT. PT REFUSING TO EAT MUCH, SHE WILL EAT PUDDING AND DRINK BOOST. PT REFUSES TURNS, HAS MULTIPLE LOOSE STOOLS, IS INCONT OF B/B. DISCHARGE ORDERS RECIEVED FOR PT TO GO TO [facility] TODAY. INFORMED OF THE DISCHARGE. REPORT CALLED TO [facility], QUESTIONS ANSWERED. PT TRANSFERED VIA AMBULANCE AT APPROX 1425
[2017-12-05] MEDS ORDERED: BACTRIM DS TAB1 EACH PO (22:02)
--- NOTE | 2017-12-27 10:20 | OP ---
[address] [address] OPERATIVE REPORT Name: RUPINDER BRADEN Room: [address] IN [facility].#: [id number] Admission: 11/24/17 Attend Phys: Amol Rodriguez MD Discharge: 12/05/17 Date of : 41 Report #: [id number] THIS REPORT FOR: //name// CC: Amol Salas SURGEON: Joseph Shelton MD. PREOPERATIVE DIAGNOSIS: Right ureteral stone with sepsis. POSTOPERATIVE DIAGNOSIS: Right ureteral stone with sepsis. PROCEDURE: Panendoscopy, cystoscopy, right retrograde pyelogram, right double-J stent placement, complex modifier secondary to sepsis. INDICATIONS: This is a 72-year-old white female who came in with severe pain and sepsis. CT showed a distal right ureteral stone and elevated creatinine, hydronephrosis. She presents now for right retrograde pyelogram, double-J stent. She understands risks of bleeding, infection and other procedures, cardiovascular and pulmonary complications, risks of worsening sepsis and that she will need the stone eventually treated. DESCRIPTION OF PROCEDURE: Informed consent was obtained. The patient was sterilely prepped and draped in dorsal lithotomy position and given preoperative antibiotics, cystoscopy was carried out. No abnormalities seen in the bladder. I did not see a stone in the bladder. A retrograde pyelogram was then gently performed using half strength contrast. The contrast really did not even go up past what looked to be a filling defect in the distal right ureter, but I was able to get a Sensor wire easily up across that and then a double-J stent up into the upper tract and a good curl of the stent in the kidney and a good curl in the bladder. There was a hydronephrotic drip. The patient was taken to recovery room in stable condition. She will continue on her antibiotics of [place]. <ELECTRONICALLY SIGNED> By: Joseph Shelton MD 12/27/17 1020 1413 1456Brene Shelton MD /nt
== END 2017-12-05 14:33 | DRG 871 ==
LOC: M.ERS 17:36 → M.ICU 21:32 → M.TBA-ER 21:32 → M.ICU 22:06 → M.2W 11-26 10:46
PROVIDERS: Emergency Medicine; Emergency Medicine Emergency Medical Services; Internal Medicine; Internal Medicine Cardiovascular Disease; Internal Medicine Nephrology; ADMIT Internal Medicine
PROC: 0T768DZ Dilation of Right Ureter with Intraluminal Device, Via Natural or Artificial Opening Endoscopic (ICD-10-PCS; principal; 2017-11-25)
PROC: 5A09357 Assistance with Respiratory Ventilation, Less than 24 Consecutive Hours, Continuous Positive Airway Pressure (ICD-10-PCS; principal; 2017-11-25)
PROC: BT1D1ZZ Fluoroscopy of Right Kidney, Ureter and Bladder using Low Osmolar Contrast (ICD-10-PCS; principal; 2017-11-25)
DX: A41.81 Sepsis due to Enterococcus (principal); G93.40 Encephalopathy, unspecified; J96.00 Acute respiratory failure, unspecified whether with hypoxia or hypercapnia; N17.0 Acute kidney failure with tubular necrosis; J69.0 Pneumonitis due to inhalation of food and vomit; N39.0 Urinary tract infection, site not specified; E87.1 Hypo-osmolality and hyponatremia; E87.2 Acidosis; N13.2 Hydronephrosis with renal and ureteral calculous obstruction; I13.0 Hypertensive heart and chronic kidney disease with heart failure and stage 1 through stage 4 chronic kidney disease, or unspecified chronic kidney disease; F32.9 Major depressive disorder, single episode, unspecified; E78.5 Hyperlipidemia, unspecified; E11.42 Type 2 diabetes mellitus with diabetic polyneuropathy; K21.9 Gastro-esophageal reflux disease without esophagitis; K57.90 Diverticulosis of intestine, part unspecified, without perforation or abscess without bleeding; M19.90 Unspecified osteoarthritis, unspecified site; R59.1 Generalized enlarged lymph nodes; D64.9 Anemia, unspecified; I48.91 Unspecified atrial fibrillation; E86.0 Dehydration; E11.22 Type 2 diabetes mellitus with diabetic chronic kidney disease; N18.9 Chronic kidney disease, unspecified; R53.83 Other fatigue; D69.6 Thrombocytopenia, unspecified; W18.39XA Other fall on same level, initial encounter; Y93.89 Activity, other specified; Y92.098 Other place in other non-institutional residence as the place of occurrence of the external cause; Y99.8 Other external cause status; Z88.8 Allergy status to other drugs, medicaments and biological substances; Z79.01 Long term (current) use of anticoagulants; Z79.2 Long term (current) use of antibiotics; Z79.82 Long term (current) use of aspirin; Z79.899 Other long term (current) drug therapy; Z90.49 Acquired absence of other specified parts of digestive tract; Z90.710 Acquired absence of both cervix and uterus

== ENCOUNTER 2017-12-05 21:50 | Inpatient (IN) | payer OTHER ==
[~2017-12-05] VITALS: Ht 167.6 cm; Wt 95.7 kg
[~2017-12-05 21:50] MED LIST changes: +ASPIR 8181 M1 PO; +CINNAMON500 MG PO; +COLACE100 MG PO; +DIFLUCAN200 MG PO; +FLAXSEED1000 MG PO; +GLUCOTROL5 MG PO; +HUMALOG100 UNIT/1 SUBQ; +IBUPROFEN 200200 M1 PO; +IPRAT-ALBUT 0.5-3 ML INH; +LANTUS100 UNIT/M SUBQ; +LASIX 20 MG TAB20 MG PO; +NAPROSYN500 MG PO; +OMEPRAZOLE20 M2 PO; +PACERONE 200 M200 M1 PO; +SERTRALINE HCL50 MG PO; +ZOCOR20 MG PO
[2017-12-05 21:52] VITALS: BP 136/57
[2017-12-05] MEDS ORDERED: BACTRIM DS TAB1 EACH PO (22:02)
[2017-12-05 22:13] LABS: ABSOLUTE EOSINOPHILS 0.1 thou/uL (0.0-0.7); ABSOLUTE LYMPHOCYTES 0.4 thou/uL (0.8-5.3); ABSOLUTE MONOCYTES 0.8 thou/uL (0.0-1.2); ABSOLUTE NEUTROPHILS 12.2 thou/uL (1.6-8.1); BASOPHILS 0.3 %; EOSINOPHILS 0.8 %; HEMATOCRIT 22.2 % (37.0-47.0); HEMOGLOBIN 7.4 gm/dL (12.0-15.0); LYMPHOCYTES 2.7 %; MCH 26.6 pg (26.0-34.0); MCHC 33.2 g/dL (28.0-37.0); MCV 80.2 fL (80.0-100.0); MONOCYTES 5.8 %; MPV 8.9 fl. (7.2-11.1); NUCLEATED RBCS 0 /100WBC; PLATELET COUNT* 242 thou/uL (150-400); POLYS 90.4 %; RBC 2.77 mil/uL (4.20-5.00); RDW-CV 15.4 % (10.5-14.5); WBC 13.5 thou/uL (4.0-11.0)
[2017-12-05 22:20] LABS: ANION GAP 2 mmol/L (7-16); BUN 33 mg/dL (7-18); CALCIUM 7.5 mg/dL (8.5-10.1); CHLORIDE 90 mmol/L (98-107); CO2 29 mmol/L (21-32); CREATININE 1.9 mg/dL (0.6-1.3); GLUCOSE 216 mg/dL (70-99); SODIUM 121 mmol/L (136-145)
[2017-12-05 22:29] LABS: INR 1.2; PROTIME 11.2 Seconds (9.20-11.50)
[2017-12-05 22:31] LABS: ALBUMIN 1.8 g/dL (3.4-5.0); ALKALINE PHOSPHATASE 31 U/L (46-116); LIPASE 196 U/L (73-393); NT-PRO BRAIN NAT PEPTIDE 5141 pg/mL (<300); SGOT 20 U/L (15-37); SGPT 16 U/L (30-65); TOTAL BILIRUBIN 0.3 mg/dL (<0.1-1.0); TOTAL PROTEIN 6.1 g/dL (6.4-8.2); TROPONIN-I LEVEL <0.06 ng/mL (<0.06)
[2017-12-06 04:25] VITALS: BP 149/62
[2017-12-06 04:40] VITALS: BP 149/62
[2017-12-06 08:58] LABS: HEMATOCRIT 20.3 % (37.0-47.0); MCH 26.7 pg (26.0-34.0); MCHC 32.9 g/dL (28.0-37.0); MCV 81.2 fL (80.0-100.0); MPV 8.6 fl. (7.2-11.1); NUCLEATED RBCS 0 /100WBC; PLATELET COUNT* 242 thou/uL (150-400); WBC 13.3 thou/uL (4.0-11.0)
[2017-12-06 09:03] LABS: CALCIUM 7.4 mg/dL (8.5-10.1); CREATININE 1.7 mg/dL (0.6-1.3)
[2017-12-06 09:05] LABS: HEMOGLOBIN 6.7 gm/dL (12.0-15.0)
[2017-12-06 09:30] VITALS: BP 152/56
[2017-12-06 09:30] LABS: ABSOLUTE BASOPHILS 0.1 thou/uL (0.0-0.2); ABSOLUTE EOSINOPHILS 0.1 thou/uL (0.0-0.7); ABSOLUTE LYMPHOCYTES 0.1 thou/uL (0.8-5.3); ABSOLUTE MONOCYTES 0.4 thou/uL (0.0-1.2); ABSOLUTE NEUTROPHILS 12.5 thou/uL (1.6-8.1)
[2017-12-06 09:31] LABS: ANISOCYTOSIS 1+; MICROCYTES 1+
[2017-12-06 09:32] LABS: POLYCHROMASIA 1+
[2017-12-06 12:00] VITALS: BP 154/63
[2017-12-06 16:28] VITALS: BP 141/64; BP 144/57; BP 148/64; BP 157/65
[2017-12-06 16:39] VITALS: BP 150/63
[2017-12-06 22:01] LABS: HEMATOCRIT 25.1 % (37.0-47.0); HEMOGLOBIN 8.3 gm/dL (12.0-15.0)
[2017-12-07] VITALS (7 sets, daily range): BP systolic 141–166; BP diastolic 52–81
[2017-12-08] VITALS (7 sets, daily range): BP systolic 139–162; BP diastolic 32–63
[2017-12-08 04:53] LABS: ABSOLUTE EOSINOPHILS 0.1 thou/uL (0.0-0.7); ABSOLUTE LYMPHOCYTES 0.5 thou/uL (0.8-5.3); ABSOLUTE NEUTROPHILS 8.3 thou/uL (1.6-8.1); BASOPHILS 0.3 %; EOSINOPHILS 1.3 %; HEMATOCRIT 25.5 % (37.0-47.0); HEMOGLOBIN 8.5 gm/dL (12.0-15.0); MCH 27.8 pg (26.0-34.0); MCHC 33.5 g/dL (28.0-37.0); MONOCYTES 9.8 %; MPV 8.5 fl. (7.2-11.1); NUCLEATED RBCS 0 /100WBC; PLATELET COUNT* 261 thou/uL (150-400); POLYS 83.6 %; RBC 3.07 mil/uL (4.20-5.00); RDW-CV 15.8 % (10.5-14.5); WBC 9.9 thou/uL (4.0-11.0)
[2017-12-08 04:58] LABS: CALCIUM 7.8 mg/dL (8.5-10.1); CREATININE 1.6 mg/dL (0.6-1.3); POTASSIUM 3.9 mmol/L (3.5-5.1)
--- NOTE | 2017-12-08 08:59 | CON ---
[address] [address] CONSULTATION Name: RUPINDER BRADEN Room: [address] IN [facility].#: [id number] Admission: 12/06/17 Attend Phys: Juan Luis Rodriguez Discharge: Date of : 41 Report #: [id number] THIS REPORT FOR: //name// CC: Michelle Fernández DATE OF SERVICE: 12/07/2017 HISTORY OF PRESENT ILLNESS: The patient is a 72-year-old woman who was readmitted to the hospital on 12/05/2017 after having been discharged earlier in the day. She had gone to a long term facility. She was discharged on supplemental oxygen after being treated here for a significant urinary tract infection with sepsis. Reportedly, her O2 saturations were low, they were unable to get them up. She was brought in via EMS. She was afebrile in the Emergency Department. On 4 liters, O2 saturations in the ED were in the 90s. X-ray revealed some infiltrates. She did have a lung scan done. Only the perfusion scan was done as she was unable to perform the ventilation aspect of that. There were perfusion abnormalities noted. However, these areas also corresponded to infiltrates noted on the x-ray. She is an extremely poor historian. Generally, the history is taken from the records. She is a nonsmoker. It does not appear that she has any prior history of pulmonary disease. She was admitted here on 11/24/2017 and was discharged on 12/05/2017. She had acute renal failure, sepsis related to gram-negative rods. Did require stent placement due to hydronephrosis from a calculus. She had fairly extensive evaluation done while she was here. Because of adenopathy noted in her abdomen, she was seen by Oncology. She was also noted to be anemic and thrombocytopenic. ID service and Urology also followed. She has no prior history of known thromboembolic disease. Did have cardiac stress test when she was here for complaints of chest pain. Echocardiogram done, indicated actually her LV function was hyperdynamic. Unable to evaluate for diastolic function. She did have mild pulmonary hypertension noted with an atrial fibrillation. She has been on 3 liters of oxygen since readmission here. She is admitting to some cough. She states she has been intermittently having some chest discomfort. However, she notes she has "pain all over." Denies shortness of breath. Since her admission here, she has had some low-grade temperatures in the high 99 range. She has been hemodynamically stable. Urine output unknown as she is incontinent. Of note, she was extremely lethargic, encephalopathic when she was here previously. She was seen by Psychiatry as well as Neurology. PAST MEDICAL HISTORY: Has a recent urinary tract infection and ureteral stone; [place] [address] CONSULTATION Name: RUPINDER BRADEN Room: [address] IN [facility]#: [id number] Admission: 12/06/17 Attend Phys: Juan Luis Rodriguez Discharge: Date of : 41 Report #: [id number] remarkable for dyslipidemia, diabetes mellitus with neuropathy, GERD, had prior cholecystectomy, appendectomy, bladder suspension, diverticular disease. SOCIAL HISTORY: She is . Nonsmoker. Apparently does not drink alcohol. FAMILY HISTORY: Unknown. REVIEW OF SYSTEMS: Question reliability. She was moaning and crying out during my exam. However, is unable to focus or tell me exactly where her pain or discomfort was at. Admits, she will have some cough. She tells me she "coughs and pukes in the bed." Denies shortness of breath. She denies any difficulty swallowing. PHYSICAL EXAMINATION: GENERAL APPEARANCE: We have an obese woman. She is in bed with O2 running via nasal cannula. HEENT: Head is normocephalic. Sclerae nonicteric. Mucous membranes are dry. NECK: Negative for any adenopathy. No JVD is noted. HEART: Regular. I do not appreciate an S3. LUNGS: Sounds difficult to auscultate as she continued to moan and cry out while attempting to listen to her lungs. Excursion appears equal. ABDOMEN: Obese but soft. She is not guarding, but does appear just generally uncomfortable. GENITOURINARY: She has been incontinent of urine. EXTREMITIES: Some trace pretibial edema. Pulses are present. SKIN: Warm and dry. NEUROLOGIC: Moving all extremities. She is slow to respond to questions. LABORATORY AND X-RAY FINDINGS: Chest x-ray done this morning is a portable study. Some increase infiltrates seen in the bases, especially on the right. Venous Dopplers done of her lower extremities yesterday are negative for DVT. As noted above, had a perfusion lung scan done on 12/05/2017. Perfusion defect seen that appear to be in the superior segments lower lobes. However, these areas also correlate where she has had infiltrates. She had a CT scan done of her chest on 11/24/2017. She had no mediastinal or hilar adenopathy that was appreciated at that time. She did have a small right pleural effusion, some infiltrates and atelectasis seen in the lower lung hutchinson bilaterally. The CT scan done of her abdomen and pelvis revealed a 7 mm calculus at the level of the right UV junction. She had [id number] right hydronephrosis. She had scattered mesenteric lymph nodes, which had increased in size from prior studies. No blood gases have been done. On her chemistry today, her sodium is 124, potassium 4.0, bicarbonate of 28, BUN of 28, creatinine of 1.7. ProBNP on admission was 5141. Albumin 1.8, total protein 6.1. Her D-dimer on admission was 4.16. White blood cell count yesterday 13,300; hemoglobin 8.3 (had been down to 7.2); hematocrit 25.1; platelets 242,000. Earlier in the month when she was here, her platelets had dropped to as low as 36,000. [place] [address] CONSULTATION Name: RUPINDER BRADEN Kaiden Room: [address] IN [facility]#: [id number] Admission: 12/06/17 Attend Phys: Juan Luis Rodriguez Discharge: Date of : 41 Report #: [id number] was 108. It was down from 427 earlier in the month. IgG was low earlier in the month at 602. Blood cultures done on admission are negative to date. Earlier in the month, blood cultures did grow out Enterobacter similar to what was in her urine. IMPRESSION: 1. Hypoxemia, exact cause not clear. Has had some infiltrates. Reviewing her films, they have tended to wax and wane and fluctuate. Some of this could be fluid. Suspect also could be intermittent aspiration. It does appear that her mental status has varied. It is possible she could have a pulmonary embolism. However, her lower extremities are negative for deep venous thrombosis. The perfusion defects do tend to correlate where she has infiltrates. 2. Status post acute kidney injury with improvement overall in her creatinine. However, creatinine remains elevated. At baseline, probably has chronic kidney disease. 3. Mild pulmonary hypertension. Given her body habitus, wonder if she has some unrecognized sleep apnea. 4. Anemia. 5. Diabetes mellitus. 6. Mesenteric adenopathy. May be reactive, additional evaluation is pending. RECOMMENDATIONS: 1. We will have speech therapy evaluate her with a video swallow tomorrow. 2. Wean O2 as able. 3. Unfortunately, given her mental status, appears to be a poor candidate at this time for sleep study, but that could be considered in the future. 4. She also appears to be a very poor candidate for anticoagulation therapy. Appears to be a fall risk, also has ongoing issues with anemia. <ELECTRONICALLY SIGNED> By: Yesenia Wells MD 12/08/17 0859 0836 0939Yesenia Wells MD /nt
--- NOTE | 2017-12-08 11:11 | EKG ---
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: : 1945 Requested By: Kavitha Ahn Order Number: [id number] MD: Lucho Trinh Measurements Intervals [place] Rate: 95 P: 41 MI: 172 QRS: -23 QRSD: 96 T: 132 QT: 353 QTc: 444 Interpretive Statements Sinus rhythm Borderline left axis deviation Consider anterior infarct Borderline repolarization abnormality Compared to ECG 11/25/2017 12:50:16 Atrial fibrillation no longer present Electronically Signed On 12-08-2017 11:11:10 CDT by Lucho Trinh [email or web address] <ELECTRONICALLY SIGNED> By: Lucho Trinh MD, [facility] 12/08/17 1111 20 20 Lucho Trinh MD, [facility] /EPI
[2017-12-09] VITALS: BP 149/60
[2017-12-09 04:00] VITALS: BP 133/67
[2017-12-09 07:51] VITALS: BP 155/61
[2017-12-09 12:22] VITALS: BP 145/51
[2017-12-09 16:22] VITALS: BP 153/62
[2017-12-09 20:00] VITALS: BP 144/61
[2017-12-10 00:01] VITALS: BP 146/65
[2017-12-10 03:49] VITALS: BP 154/58
[2017-12-10 07:30] VITALS: BP 132/54
[2017-12-10 12:06] VITALS: BP 141/55
[2017-12-10] MEDS ORDERED: TRAMADOL 50 MG50 MG PO (12:45)
[2017-12-10] MEDS ORDERED: ASPERCREME 1141.7 GM TOP (14:11)
[2017-12-10] MEDS ORDERED: DIFLUCAN200 MG PO (14:12)
[2017-12-10] MEDS ORDERED: TYLENOL325 MG PO (14:15)
[2017-12-10] MEDS ORDERED: LIPITOR 20 MG T20 M1 PO (14:16)
[2017-12-10] MEDS ORDERED: NYSTATIN-TRIAMC15 GM TOP (14:22)
[2017-12-10] MEDS ORDERED: OCEAN104 ML NASAL (14:25)
[2017-12-10] MEDS ORDERED: PROTONIX40 M1 PO (14:25)
[2017-12-10] MEDS ORDERED: IPRAT-ALBUT 0.5-3 ML INH (14:39)
[2017-12-10 14:47] VITALS: BP 141/55
[2017-12-11 21:06] LABS: ANA INTERPRETATION Negative (())
== END 2017-12-10 15:10 | DRG 871 ==
LOC: M.ERS 21:50 → M.2W 12-06 02:30 → M.TBA-ER 12-06 02:30 → M.2W 12-06 03:14
PROVIDERS: Emergency Medicine; Internal Medicine; Internal Medicine Pulmonary Disease; ADMIT Internal Medicine
PROC: 30233N1 Transfusion of Nonautologous Red Blood Cells into Peripheral Vein, Percutaneous Approach (ICD-10-PCS; principal; 2017-12-06)
DX: A41.9 Sepsis, unspecified organism (principal); J69.0 Pneumonitis due to inhalation of food and vomit; N17.0 Acute kidney failure with tubular necrosis; N39.0 Urinary tract infection, site not specified; N18.4 Chronic kidney disease, stage 4 (severe); E87.1 Hypo-osmolality and hyponatremia; I12.9 Hypertensive chronic kidney disease with stage 1 through stage 4 chronic kidney disease, or unspecified chronic kidney disease; I27.20 Pulmonary hypertension, unspecified; K21.9 Gastro-esophageal reflux disease without esophagitis; D64.9 Anemia, unspecified; E11.40 Type 2 diabetes mellitus with diabetic neuropathy, unspecified; R59.0 Localized enlarged lymph nodes; K57.90 Diverticulosis of intestine, part unspecified, without perforation or abscess without bleeding; I48.91 Unspecified atrial fibrillation; M15.9 Polyosteoarthritis, unspecified; F32.9 Major depressive disorder, single episode, unspecified; F03.90 Unspecified dementia, unspecified severity, without behavioral disturbance, psychotic disturbance, mood disturbance, and anxiety; G47.33 Obstructive sleep apnea (adult) (pediatric); E78.5 Hyperlipidemia, unspecified; Z90.710 Acquired absence of both cervix and uterus; Z90.49 Acquired absence of other specified parts of digestive tract; Z88.6 Allergy status to analgesic agent; Z79.2 Long term (current) use of antibiotics; Z79.82 Long term (current) use of aspirin; Z79.4 Long term (current) use of insulin; Z79.899 Other long term (current) drug therapy; Z79.01 Long term (current) use of anticoagulants

== ENCOUNTER 2017-12-30 15:49 | Inpatient (IN) | payer OTHER ==
[~2017-12-30] VITALS: Ht 157.5 cm; Wt 88.5 kg
[~2017-12-30 15:49] MED LIST changes: +ASPERCREME 1141.7 GM TOP; +BACTRIM DS TAB1 EACH PO; +LIPITOR 20 MG T20 M1 PO; +NYSTATIN-TRIAMC15 GM TOP; +OCEAN104 ML NASAL; +PROTONIX40 M1 PO; +TRAMADOL 50 MG50 MG PO; +TYLENOL325 MG PO
[2017-12-30 15:57] VITALS: BP 149/65
[2017-12-30] MEDS ORDERED: GLUCOPHAGE XR500 MG PO (15:59)
[2017-12-30] MEDS ORDERED: PIOGLITAZONE15 MG (16:00)
[2017-12-30] MEDS ORDERED: ZOCOR20 MG PO (16:00)
[2017-12-30] MEDS ORDERED: PRINIVIL20 MG PO (16:01)
[2017-12-30] MEDS ORDERED: NAPROSYN500 MG PO (16:01)
[2017-12-30] MEDS ORDERED: GLUCOTROL5 MG PO (16:02)
[2017-12-30] MEDS ORDERED: OMEPRAZOLE20 M2 PO (16:03)
[2017-12-30] MEDS ORDERED: TOUJEO MAX300 UNIT/1 SUBQ (16:04)
[2017-12-30 16:15] LABS: ABSOLUTE BASOPHILS 0.1 thou/uL (0.0-0.2); ABSOLUTE EOSINOPHILS 0.3 thou/uL (0.0-0.7); ABSOLUTE LYMPHOCYTES 1.1 thou/uL (0.8-5.3); ABSOLUTE MONOCYTES 0.5 thou/uL (0.0-1.2); ABSOLUTE NEUTROPHILS 5.6 thou/uL (1.6-8.1); BASOPHILS 0.8 %; EOSINOPHILS 3.3 %; HEMATOCRIT 25.6 % (37.0-47.0); HEMOGLOBIN 8.3 gm/dL (12.0-15.0); LYMPHOCYTES 14.9 %; MCH 26.9 pg (26.0-34.0); MCHC 32.4 g/dL (28.0-37.0); MCV 82.9 fL (80.0-100.0); MPV 7.9 fl. (7.2-11.1); NUCLEATED RBCS 0 /100WBC; PLATELET COUNT* 277 thou/uL (150-400); RBC 3.09 mil/uL (4.20-5.00); RDW-CV 16.8 % (10.5-14.5); WBC 7.6 thou/uL (4.0-11.0)
[2017-12-30 16:23] LABS: APTT 25.6 Seconds (25.0-31.3); INR 1.1; PROTIME 10.7 Seconds (9.20-11.50)
[2017-12-30 16:28] LABS: ANION GAP 9 mmol/L (7-16); BUN 22 mg/dL (7-18); CALCIUM 8.5 mg/dL (8.5-10.1); CHLORIDE 98 mmol/L (98-107); CO2 25 mmol/L (21-32); CREATININE 1.8 mg/dL (0.6-1.3); GLUCOSE 299 mg/dL (70-99); POTASSIUM 5.1 mmol/L (3.5-5.1); SODIUM 132 mmol/L (136-145)
[2017-12-30 16:50] LABS: ALBUMIN 2.3 g/dL (3.4-5.0); ALKALINE PHOSPHATASE 41 U/L (46-116); CK-MB MASS < 0.5 ng/mL (<0.5-3.6); NT-PRO BRAIN NAT PEPTIDE 451 pg/mL (<300); SGOT 26 U/L (15-37); SGPT 34 U/L (30-65); TOTAL BILIRUBIN 0.3 mg/dL (<0.1-1.0); TROPONIN-I LEVEL <0.06 ng/mL (<0.06)
[2017-12-30 18:28] VITALS: BP 129/57
[2017-12-30 19:03] VITALS: BP 151/59
[2017-12-30 20:00] VITALS: BP 123/56
[2017-12-30 22:15] LABS: URINE BILIRUBIN NEGATIVE (Negative); URINE BLOOD TRACE (Negative); URINE CLARITY CLEAR; URINE COLOR YELLOW; URINE GLUCOSE-RANDOM 1+ (Negative); URINE KETONES NEGATIVE (Negative); URINE NITRITE-REFLEX NEGATIVE (Negative); URINE PROTEIN 1+ (Negative); URINE UROBILINOGEN 0.2 E.U./dl (0.2-1.0)
[2017-12-30 22:18] LABS: URINE LEUKOCYTES-REFLEX 2+ (Negative)
[2017-12-30 22:20] LABS: BACTERIA-REFLEX 1-9 Few /HPF (None Seen); SQUAMOUS 4-10 Moderate /LPF (0-3); URINE RBC 3-10 Few /HPF (0-2); URINE WBC-REFLEX >25 Many /HPF (0-5)
[2017-12-30 22:21] LABS: CRYSTALS None Seen /LPF (None Seen); FINE GRANULAR CASTS 0-3 Few /LPF (None Seen); HYALINE CASTS 0-3 Few /LPF (None Seen)
[2017-12-31 00:25] VITALS: BP 125/64
[2017-12-31 04:43] VITALS: BP 122/52
[2017-12-31 05:42] LABS: ABSOLUTE BASOPHILS 0.1 thou/uL (0.0-0.2); ABSOLUTE EOSINOPHILS 0.5 thou/uL (0.0-0.7); ABSOLUTE LYMPHOCYTES 1.4 thou/uL (0.8-5.3); ABSOLUTE MONOCYTES 0.7 thou/uL (0.0-1.2); ABSOLUTE NEUTROPHILS 5.7 thou/uL (1.6-8.1); BASOPHILS 0.7 %; EOSINOPHILS 6.1 %; HEMATOCRIT 22.9 % (37.0-47.0); HEMOGLOBIN 7.6 gm/dL (12.0-15.0); LYMPHOCYTES 17.2 %; MCH 27.7 pg (26.0-34.0); MCHC 33.5 g/dL (28.0-37.0); MCV 82.9 fL (80.0-100.0); MPV 8.1 fl. (7.2-11.1); NUCLEATED RBCS 0 /100WBC; PLATELET COUNT* 234 thou/uL (150-400); RBC 2.76 mil/uL (4.20-5.00); RDW-CV 16.4 % (10.5-14.5); WBC 8.4 thou/uL (4.0-11.0)
[2017-12-31 05:53] LABS: CALCIUM 8.1 mg/dL (8.5-10.1); CREATININE 1.6 mg/dL (0.6-1.3)
[2017-12-31 07:30] VITALS: BP 122/57
[2017-12-31] MEDS ORDERED: ASPIR 8181 M1 PO (11:08)
[2017-12-31] MEDS ORDERED: COLACE100 MG PO (11:08)
[2017-12-31] MEDS ORDERED: SERTRALINE HCL50 MG PO (11:09)
[2017-12-31] MEDS ORDERED: LASIX 20 MG TAB20 MG PO (11:09)
[2017-12-31] MEDS ORDERED: LANTUS SUBQ (11:10)
[2017-12-31] MEDS ORDERED: PACERONE 200 M200 M1 PO (11:11)
[2017-12-31] MEDS ORDERED: TRAMADOL 50 MG50 MG PO (11:11)
[2017-12-31] MEDS ORDERED: PERIDEX15 ML PO (11:12)
[2017-12-31] MEDS ORDERED: ALBUTEROL2.5 MG/31 INH (11:14)
[2017-12-31] MEDS ORDERED: HUMALOG100 UNIT/1 SUBQ (11:21)
[2017-12-31 12:00] VITALS: BP 115/54
[2017-12-31 16:13] VITALS: BP 121/54
--- NOTE | 2017-12-31 17:29 | EKG ---
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 : 1945 Requested By: Heber Marin Order Number: [id number] MD: Claude Joyce Measurements Intervals [place] Rate: 81 P: 35 [place]: 182 QRS: -21 QRSD: 94 T: 40 QT: 373 QTc: 433 Interpretive Statements Sinus rhythm Borderline left axis deviation Consider anterior infarct Compared to ECG 12/05/2017 22:21:57 No significant changes Electronically Signed On 12-31-2017 17:28:54 CDT by Claude Joyce [email or web address] <ELECTRONICALLY SIGNED> By: Claude Joyce MD, [facility] 12/31/17 3958 1614 1614 Claude Joyce MD, [facility] /EPI
[2017-12-31 20:00] VITALS: BP 126/53
[2017-12-31 23:56] LABS: % SATURATION 14 % (20-39); IRON 27 ug/dL (50-175)
[2018-01-01] VITALS (7 sets, daily range): BP systolic 109–142; BP diastolic 42–80
[2018-01-01 04:31] LABS: ABSOLUTE BASOPHILS 0.1 thou/uL (0.0-0.2); ABSOLUTE EOSINOPHILS 0.4 thou/uL (0.0-0.7); ABSOLUTE LYMPHOCYTES 1.6 thou/uL (0.8-5.3); ABSOLUTE MONOCYTES 0.8 thou/uL (0.0-1.2); ABSOLUTE NEUTROPHILS 6.6 thou/uL (1.6-8.1); BASOPHILS 0.6 %; EOSINOPHILS 3.9 %; HEMATOCRIT 22.2 % (37.0-47.0); HEMOGLOBIN 7.2 gm/dL (12.0-15.0); MCH 26.9 pg (26.0-34.0); MCHC 32.3 g/dL (28.0-37.0); MCV 83.3 fL (80.0-100.0); MONOCYTES 8.5 %; MPV 8.3 fl. (7.2-11.1); NUCLEATED RBCS 0 /100WBC; PLATELET COUNT* 244 thou/uL (150-400); RBC 2.66 mil/uL (4.20-5.00); RDW-CV 16.8 % (10.5-14.5); WBC 9.5 thou/uL (4.0-11.0)
[2018-01-01 06:45] LABS: PLATELET ESTIMATE ADEQUATE
[2018-01-01 06:50] LABS: ANISOCYTOSIS 1+; POIKILOCYTOSIS 1+
[2018-01-01 23:11] LABS: HIV-1/HIV-2 ANTIBODY Non Reactive (Non Reactive)
[2018-01-02] VITALS: BP 121/43
[2018-01-02 04:00] VITALS: BP 140/50
[2018-01-02 08:00] VITALS: BP 118/50
[2018-01-02 09:14] LABS: ABSOLUTE EOSINOPHILS 0.4 thou/uL (0.0-0.7); ABSOLUTE LYMPHOCYTES 1.1 thou/uL (0.8-5.3); ABSOLUTE MONOCYTES 0.5 thou/uL (0.0-1.2); ABSOLUTE NEUTROPHILS 6.1 thou/uL (1.6-8.1); BASOPHILS 0.6 %; EOSINOPHILS 4.6 %; HEMATOCRIT 23.9 % (37.0-47.0); HEMOGLOBIN 7.8 gm/dL (12.0-15.0); LYMPHOCYTES 13.8 %; MCH 27.4 pg (26.0-34.0); MCHC 32.8 g/dL (28.0-37.0); MCV 83.7 fL (80.0-100.0); MONOCYTES 6.1 %; MPV 8.1 fl. (7.2-11.1); NUCLEATED RBCS 0 /100WBC; PLATELET COUNT* 239 thou/uL (150-400); POLYS 74.9 %; RBC 2.85 mil/uL (4.20-5.00); RDW-CV 16.7 % (10.5-14.5); WBC 8.1 thou/uL (4.0-11.0)
[2018-01-02] MEDS ORDERED: SYNTHROID100 MC1 PO (10:01)
[2018-01-02] MEDS ORDERED: ZYPREXA2.5 MG PO (10:03)
[2018-01-02] MEDS ORDERED: WELLBUTRIN 75 M75 M1 PO (10:11)
[2018-01-02] MEDS ORDERED: CEFUROXIME500 MG PO (10:19)
[2018-01-02 11:16] VITALS: BP 129/51
[2018-01-02 12:18] VITALS: BP 140/54
--- NOTE | 2018-01-10 14:25 | CON ---
[address] [address] CONSULTATION Name: RUPINDER BRADEN Room: [address] IN .R.#: [id number] Admission: 12/30/17 Attend Phys: Amol Rodriguez MD Discharge: 01/02/18 Date of : 41 Report #: [id number] THIS REPORT FOR: //name// CC: Amol Salas DATE OF SERVICE: 12/31/2017 REQUESTING PHYSICIAN: Dr. Rodriguez. REASON FOR CONSULTATION: Anemia. SUBJECTIVE: The patient is a 72-year-old female who has been recently admitted to [facility] because of urosepsis. She had a right ureter, kidney stone which underwent stent placement due to hydronephrosis. The patient was discharged to rehab and after that she went home. Per her admission note this time, she was not able to take care of herself. She had severe depression. She was requesting hospice consult. Hematology consultation has been requested due to severe anemia. Her hemoglobin upon admission was 8.3 and today 7.6. Apparently, the patient did not have any active GI bleed. I reviewed her previous hemoglobin back on 11/24/2017, which was 8.6. She denies any blood in the stool. No nausea, no vomiting, no epigastric pain. She stated that she had a colonoscopy around 1 year ago; however, she does not remember who is the or which facility she had it done. She also had chronic kidney disease. Reviewing her records revealed that her creatinine at some point was at 3.3 on 11/27/2017 and upon this admission, it was 1.6. The patient denies any back pain or any frequent infection previously. I reviewed her records and on 11/26, she had a hemoglobin electrophoresis, which came back negative for any M-spike. She had both elevation of her kappa and lambda light chain; however, her free light chain ratio was normal. REVIEW OF SYSTEMS: All systems reviewed. It was negative except the above. PAST MEDICAL HISTORY: Depression, hyponatremia, previous urosepsis with hydronephrosis, dyslipidemia, neuropathy, diverticulosis, diabetes mellitus, hypertension, arthritis. MEDICATIONS: Per admission list. ALLERGIES: OXYBUTYNIN. FAMILY HISTORY: No family history contributory. SOCIAL HISTORY: No smoking, alcohol abuse. No drug abuse. PHYSICAL EXAMINATION: [place] [address] CONSULTATION Name: RUPINDER BRADEN Room: [address]#: [id number] Admission: 12/30/17 Attend Phys: Amol Rodriguez MD Discharge: 01/02/18 Date of : 41 Report #: [id number] VITAL SIGNS: Today temperature is 36.8, pulse is 82, respirations 18, blood pressure is 121/54, SpO2 was 99% on room air. GENERAL: The patient was sitting in a chair. She was not in acute distress. LUNGS: Clear to auscultation bilaterally. HEART: Regular rate and rhythm. S1 and S2 within normal limits. ABDOMEN: Soft, nontender, nondistended. Bowel sounds positive. EXTREMITIES: +1 edema bilaterally. LABORATORY DATA: Today WBC 8.4, hemoglobin 7.6, MCV 82.9, RDW 16.4, platelet count is 234. PT was 10.7, PTT 25.6. Sodium is 133, potassium 4.0, BUN is 17, creatinine is 1.5. Ferritin was 135, TIBC low at 192. B12 653, folate 17.7, TSH 9.9. IMAGING: CT of the head showed no evidence of intracranial abnormalities. Chest x-ray, no acute radiograph abnormalities in the chest. ASSESSMENT AND PLAN: A 72-year-old female who has been evaluated because of severe anemia. Most recently, her hemoglobin has been hovering around 8 since November when she was admitted because of urosepsis. In addition to that, her iron profile is consistent with anemia of chronic disease/inflammation. She has a normal ferritin and low TIBC. In addition to that, she has diabetes and chronic kidney disease. At this point, I would like to wait for the rest of her workup including peripheral blood smear, serum electrophoresis and hemolysis parameter. At this point, the patient does not require any transfusion. We will continue to follow her workup and evaluate the need for Procrit or Aranesp. <ELECTRONICALLY SIGNED> By: Alonzo Constantino MD 01/10/18 1425 1940 [id number] Constantino MD /nt
== END 2018-01-02 13:23 | disposition home health service (06) | DRG 682 ==
LOC: M.ERS 15:49 → M.TBA-ER 17:11 → M.2W 17:11
PROVIDERS: Family Medicine; Internal Medicine; ADMIT Internal Medicine
DX: N17.9 Acute kidney failure, unspecified (principal); G93.40 Encephalopathy, unspecified; R65.11 Systemic inflammatory response syndrome (SIRS) of non-infectious origin with acute organ dysfunction; E87.1 Hypo-osmolality and hyponatremia; N39.0 Urinary tract infection, site not specified; E44.0 Moderate protein-calorie malnutrition; F32.9 Major depressive disorder, single episode, unspecified; E86.0 Dehydration; E78.5 Hyperlipidemia, unspecified; K21.9 Gastro-esophageal reflux disease without esophagitis; K57.90 Diverticulosis of intestine, part unspecified, without perforation or abscess without bleeding; E11.40 Type 2 diabetes mellitus with diabetic neuropathy, unspecified; D64.9 Anemia, unspecified; I12.9 Hypertensive chronic kidney disease with stage 1 through stage 4 chronic kidney disease, or unspecified chronic kidney disease; N18.9 Chronic kidney disease, unspecified; E11.21 Type 2 diabetes mellitus with diabetic nephropathy; E11.65 Type 2 diabetes mellitus with hyperglycemia; I48.91 Unspecified atrial fibrillation; M15.9 Polyosteoarthritis, unspecified; E03.9 Hypothyroidism, unspecified; I88.0 Nonspecific mesenteric lymphadenitis; Z68.35 Body mass index [BMI] 35.0-35.9, adult; Z90.710 Acquired absence of both cervix and uterus; Z90.49 Acquired absence of other specified parts of digestive tract; Z79.4 Long term (current) use of insulin; Z79.82 Long term (current) use of aspirin; Z79.899 Other long term (current) drug therapy; Z88.8 Allergy status to other drugs, medicaments and biological substances

== ENCOUNTER 2018-01-12 01:40 | Inpatient (IN) | payer OTHER ==
[~2018-01-12] VITALS: Ht 157.5 cm; Wt 89.8 kg
[~2018-01-12 01:40] MED LIST changes: +ALBUTEROL2.5 MG/31 INH; +CEFUROXIME500 MG PO; +GLUCOPHAGE XR500 MG PO; +LANTUS SUBQ; +PERIDEX15 ML PO; +PIOGLITAZONE15 MG; +PRINIVIL20 MG PO; +SYNTHROID100 MC1 PO; +TOUJEO MAX300 UNIT/1 SUBQ; +WELLBUTRIN 75 M75 M1 PO; +ZYPREXA2.5 MG PO
[2018-01-12 02:00] VITALS: BP 143/97
[2018-01-12 03:25] LABS: HEMATOCRIT 24.6 % (37.0-47.0); HEMOGLOBIN 8.1 gm/dL (12.0-15.0); MCH 27.5 pg (26.0-34.0); MCHC 33.1 g/dL (28.0-37.0); MCV 83.1 fL (80.0-100.0); MPV 7.9 fl. (7.2-11.1); NUCLEATED RBCS 0 /100WBC; PLATELET COUNT* 239 thou/uL (150-400); RBC 2.96 mil/uL (4.20-5.00); RDW-CV 17.2 % (10.5-14.5)
[2018-01-12 03:56] LABS: ALBUMIN 2.4 g/dL (3.4-5.0); CALCIUM 8.8 mg/dL (8.5-10.1); CREATININE 1.7 mg/dL (0.6-1.3); POTASSIUM 5.5 mmol/L (3.5-5.1); TOTAL BILIRUBIN 0.3 mg/dL (<0.1-1.0); TOTAL PROTEIN 7.6 g/dL (6.4-8.2)
[2018-01-12 05:27] LABS: ABSOLUTE EOSINOPHILS 0.1 thou/uL (0.0-0.7); ABSOLUTE LYMPHOCYTES 1.2 thou/uL (0.8-5.3); ABSOLUTE MONOCYTES 0.2 thou/uL (0.0-1.2); ABSOLUTE NEUTROPHILS 10.4 thou/uL (1.6-8.1)
[2018-01-12 05:28] LABS: PLATELET ESTIMATE ADEQUATE
[2018-01-12 05:36] LABS: ANISOCYTOSIS 1+
[2018-01-12 07:40] VITALS: BP 157/79
[2018-01-12 08:30] VITALS: BP 152/74
[2018-01-12 16:00] VITALS: BP 148/67
[2018-01-12] MEDS ORDERED: TRAMADOL 50 MG50 MG PO (19:14)
[2018-01-12 20:10] VITALS: BP 130/58
[2018-01-13 05:17] LABS: URINE BILIRUBIN NEGATIVE (Negative); URINE BLOOD TRACE (Negative); URINE CLARITY CLEAR; URINE COLOR YELLOW; URINE GLUCOSE-RANDOM TRACE (Negative); URINE KETONES NEGATIVE (Negative); URINE NITRITE-REFLEX NEGATIVE (Negative); URINE PROTEIN TRACE (Negative); URINE UROBILINOGEN 0.2 E.U./dl (0.2-1.0)
[2018-01-13 05:18] LABS: URINE LEUKOCYTES-REFLEX 2+ (Negative)
[2018-01-13 05:24] LABS: SQUAMOUS 0-3 Few /LPF (0-3)
[2018-01-13 05:25] LABS: CASTS None Seen /LPF (None Seen); CRYSTALS None Seen /LPF (None Seen); MUCUS 0-3 Light strn/LPF (None Seen); URINE RBC 0-2 Rare /HPF (0-2)
[2018-01-13 07:35] VITALS: BP 133/67
[2018-01-13 16:51] VITALS: BP 136/59
[2018-01-13 20:30] VITALS: BP 152/65
[2018-01-14 05:19] LABS: HEMATOCRIT 24.4 % (37.0-47.0); HEMOGLOBIN 7.9 gm/dL (12.0-15.0); MCH 27.3 pg (26.0-34.0); MCHC 32.5 g/dL (28.0-37.0); MCV 83.8 fL (80.0-100.0); MPV 8.4 fl. (7.2-11.1); RBC 2.91 mil/uL (4.20-5.00); RDW-CV 17.7 % (10.5-14.5); WBC 8.6 thou/uL (4.0-11.0)
[2018-01-14 05:26] LABS: CALCIUM 8.2 mg/dL (8.5-10.1); CREATININE 1.4 mg/dL (0.6-1.3); MAGNESIUM 1.4 mg/dL (1.8-2.4)
[2018-01-14 08:00] VITALS: BP 143/57
[2018-01-14] MEDS ORDERED: COLACE 100 MG100 MG PO (09:58)
[2018-01-14] MEDS ORDERED: MIRALAX17 GM PO (09:58)
[2018-01-14] MEDS ORDERED: BACTRIM DS TAB1 EACH PO (09:58)
[2018-01-14 12:56] VITALS: BP 143/57
[2018-01-14 14:00] VITALS: BP 143/57
== END 2018-01-14 14:05 | disposition home health service (06) | DRG 682 ==
LOC: M.ERS 01:40 → M.ORTHSURG 05:54 → M.TBA-ER 05:54 → M.ORTHSURG 08:00
PROVIDERS: Internal Medicine; Personal Emergency Response Attendant; ADMIT Internal Medicine
DX: N17.0 Acute kidney failure with tubular necrosis (principal); R65.11 Systemic inflammatory response syndrome (SIRS) of non-infectious origin with acute organ dysfunction; N39.0 Urinary tract infection, site not specified; E87.1 Hypo-osmolality and hyponatremia; K56.41 Fecal impaction; E78.5 Hyperlipidemia, unspecified; E11.40 Type 2 diabetes mellitus with diabetic neuropathy, unspecified; K57.90 Diverticulosis of intestine, part unspecified, without perforation or abscess without bleeding; K21.9 Gastro-esophageal reflux disease without esophagitis; I10 Essential (primary) hypertension; M15.9 Polyosteoarthritis, unspecified; G25.81 Restless legs syndrome; F32.9 Major depressive disorder, single episode, unspecified; E87.6 Hypokalemia; Z79.82 Long term (current) use of aspirin; Z90.710 Acquired absence of both cervix and uterus; Z90.49 Acquired absence of other specified parts of digestive tract; Z88.8 Allergy status to other drugs, medicaments and biological substances; Z79.899 Other long term (current) drug therapy

== ENCOUNTER 2018-02-24 17:05 | Emergency (ER) | payer OTHER ==
[~2018-02-24] VITALS: Ht 154.9 cm; Wt 81.7 kg
[~2018-02-24 17:05] MED LIST changes: +MIRALAX17 GM PO
[2018-02-24 18:12] VITALS: BP 151/68
== END 2018-02-24 18:13 | disposition home or self-care (01) ==
LOC: M.ERS 17:05
DX: S90.31XA Contusion of right foot, initial encounter (principal); E11.40 Type 2 diabetes mellitus with diabetic neuropathy, unspecified; K21.9 Gastro-esophageal reflux disease without esophagitis; I10 Essential (primary) hypertension; M15.9 Polyosteoarthritis, unspecified; E78.5 Hyperlipidemia, unspecified; Z86.2 Personal history of diseases of the blood and blood-forming organs and certain disorders involving the immune mechanism; Z90.710 Acquired absence of both cervix and uterus; Z88.8 Allergy status to other drugs, medicaments and biological substances; W01.0XXA Fall on same level from slipping, tripping and stumbling without subsequent striking against object, initial encounter; Y93.89 Activity, other specified; Y92.098 Other place in other non-institutional residence as the place of occurrence of the external cause; Y99.8 Other external cause status; Z79.4 Long term (current) use of insulin

== ENCOUNTER → 2018-04-28 | Outpatient (CLI) | payer OTHER | LOC: M.MRI 12:51 | DX: M75.101 Unspecified rotator cuff tear or rupture of right shoulder, not specified as traumatic (principal); M19.011 Primary osteoarthritis, right shoulder; R60.0 Localized edema ==

== ENCOUNTER → 2018-06-11 | Outpatient (CLI) | payer OTHER ==
[2018-06-11 15:38] LABS: ABSOLUTE BASOPHILS 0.1 thou/uL (0.0-0.2); ABSOLUTE EOSINOPHILS 0.2 thou/uL (0.0-0.7); ABSOLUTE LYMPHOCYTES 1.1 thou/uL (0.8-5.3); ABSOLUTE MONOCYTES 0.5 thou/uL (0.0-1.2); BASOPHILS 0.6 %; EOSINOPHILS 2.1 %; HEMATOCRIT 33.2 % (37.0-47.0); MCH 26.9 pg (26.0-34.0); MCHC 33.1 g/dL (28.0-37.0); MCV 81.3 fL (80.0-100.0); MONOCYTES 4.6 %; MPV 8.7 fl. (7.2-11.1); NUCLEATED RBCS 0 /100WBC; PLATELET COUNT* 258 thou/uL (150-400); POLYS 82.7 %; RBC 4.09 mil/uL (4.20-5.00); RDW-CV 15.6 % (10.5-14.5); WBC 10.8 thou/uL (4.0-11.0)
[2018-06-11 15:42] LABS: URINE BILIRUBIN NEGATIVE (Negative); URINE BLOOD NEGATIVE (Negative); URINE CLARITY CLEAR; URINE COLOR YELLOW; URINE GLUCOSE-RANDOM 1+ (Negative); URINE KETONES NEGATIVE (Negative); URINE LEUKOCYTES 1+ (Negative); URINE NITRITE NEGATIVE (Negative); URINE PROTEIN NEGATIVE (Negative); URINE SPECIFIC GRAVITY 1.025 (1.005-1.030); URINE UROBILINOGEN 0.2 E.U./dl (0.2-1.0)
[2018-06-11 15:52] LABS: ALBUMIN 3.1 g/dL (3.4-5.0); CALCIUM 8.4 mg/dL (8.5-10.1); CREATININE 1.8 mg/dL (0.6-1.3); POTASSIUM 5.4 mmol/L (3.5-5.1); TOTAL BILIRUBIN 0.2 mg/dL (<0.1-1.0); TOTAL PROTEIN 7.7 g/dL (6.4-8.2)
[2018-06-11 15:56] LABS: SQUAMOUS >10 Many /LPF (0-3)
[2018-06-11 15:57] LABS: URINE WBC >25 Many /HPF (0-5); WBC CLUMPS Few (None Seen)
[2018-06-11 15:58] LABS: CASTS None Seen /LPF (None Seen); CRYSTALS None Seen /LPF (None Seen); YEAST Present (None Seen)
[2018-06-11 15:59] LABS: MUCUS None Seen strn/LPF (None Seen); URINE RBC None Seen /HPF (0-2)
[2018-06-12 03:09] LABS: GLYCOHEMOGLOBIN (HGB A1C) 9.5 % (4.8-5.6)
== END ==
LOC: M.LAB 15:00 → M.CT 15:30
PROVIDERS: Family Medicine
DX: K57.30 Diverticulosis of large intestine without perforation or abscess without bleeding (principal); E11.319 Type 2 diabetes mellitus with unspecified diabetic retinopathy without macular edema; E11.40 Type 2 diabetes mellitus with diabetic neuropathy, unspecified; Z79.4 Long term (current) use of insulin

== ENCOUNTER → 2018-10-01 | Outpatient (CLI) | payer OTHER ==
[~2018-10-01] VITALS: Ht 157.5 cm; Wt 81.6 kg
[2018-10-01 09:25] LABS: ABSOLUTE EOSINOPHILS 0.2 thou/uL (0.0-0.7); ABSOLUTE MONOCYTES 0.4 thou/uL (0.0-1.2); ABSOLUTE NEUTROPHILS 5.2 thou/uL (1.6-8.1); BASOPHILS 0.7 %; EOSINOPHILS 2.7 %; HEMATOCRIT 30.8 % (37.0-47.0); HEMOGLOBIN 10.3 gm/dL (12.0-15.0); LYMPHOCYTES 14.2 %; MCH 26.8 pg (26.0-34.0); MCHC 33.3 g/dL (28.0-37.0); MCV 80.5 fL (80.0-100.0); MONOCYTES 5.4 %; MPV 8.9 fl. (7.2-11.1); NUCLEATED RBCS 0 /100WBC; PLATELET COUNT* 229 thou/uL (150-400); RBC 3.83 mil/uL (4.20-5.00); RDW-CV 14.8 % (10.5-14.5); WBC 6.8 thou/uL (4.0-11.0)
[2018-10-01 09:32] LABS: CREATININE 1.6 mg/dL (0.6-1.3); POTASSIUM 5.7 mmol/L (3.5-5.1)
[2018-10-01 09:33] LABS: APTT 26.6 Seconds (25.0-31.3); PROTIME 10.4 Seconds (9.20-11.50)
[2018-10-01 09:37] LABS: ALBUMIN 3.2 g/dL (3.4-5.0); TOTAL BILIRUBIN 0.3 mg/dL (<0.1-1.0); TOTAL PROTEIN 7.6 g/dL (6.4-8.2)
[2018-10-01 10:48] LABS: ESR (SEDRATE) 64 mm/hr (0-30)
--- NOTE | 2018-10-01 10:57 | EKG ---
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: : 1945 Requested By: Lucho Montoya Order Number: [id number] Reading MD: Brent Caballero Measurements Intervals [place] Rate: 90 P: 53 SD: 174 QRS: -49 QRSD: 122 T: 102 QT: 369 QTc: 452 Interpretive Statements Sinus rhythm Nonspecific IVCD with LAD LVH with secondary repolarization abnormality Anterior Q waves, possibly due to LVH Compared to ECG 12/30/2017 16:14:19 Intraventricular conduction delay now present Left ventricular hypertrophy now present Early repolarization now present Q waves now present Myocardial infarct finding no longer present Electronically Signed On 10-01-2018 10:57:31 CDT by Brent Caballero [email or web address] <ELECTRONICALLY SIGNED> By: Brent Caballero MD, [facility] 10/01/18 1057 0941 0941 Brent Caballero MD, [facility] /EPI
== END ==
LOC: M.LAB 08:00 → M.SUR 10-12 06:28 → EDSTATUS 10-12 12:50
PROVIDERS: Orthopaedic Surgery
DX: Z01.810 Encounter for preprocedural cardiovascular examination (principal); M17.12 Unilateral primary osteoarthritis, left knee

== ENCOUNTER 2019-01-03 11:59 | Emergency (ER) | payer OTHER ==
[~2019-01-03] VITALS: Ht 157.5 cm; Wt 86.2 kg
[2019-01-03] MEDS ORDERED: NORCO 5-325 TA1 EAC1 PO (12:47)
[2019-01-03 13:06] VITALS: BP 142/69
== END 2019-01-03 13:07 | disposition home or self-care (01) ==
LOC: M.ERS 11:59
DX: S20.212A Contusion of left front wall of thorax, initial encounter (principal); I10 Essential (primary) hypertension; E11.9 Type 2 diabetes mellitus without complications; E03.9 Hypothyroidism, unspecified; K21.9 Gastro-esophageal reflux disease without esophagitis; Z90.49 Acquired absence of other specified parts of digestive tract; Z79.4 Long term (current) use of insulin; Z96.1 Presence of intraocular lens; Z88.1 Allergy status to other antibiotic agents

== ENCOUNTER 2019-01-21 16:22 | Inpatient (IN) | payer OTHER ==
[~2019-01-21] VITALS: Ht 157.5 cm; Wt 86.6 kg
[2019-01-21 14:53] LABS: CREATININE 1.8 mg/dL (0.6-1.3)
[~2019-01-21 16:22] MED LIST changes: +NORCO 5-325 TA1 EAC1 PO
[2019-01-21 16:33] VITALS: BP 153/98
[2019-01-21 17:08] LABS: ABSOLUTE BASOPHILS 0.1 thou/uL (0.0-0.2); ABSOLUTE EOSINOPHILS 0.1 thou/uL (0.0-0.7); ABSOLUTE LYMPHOCYTES 0.9 thou/uL (0.8-5.3); ABSOLUTE MONOCYTES 0.6 thou/uL (0.0-1.2); ABSOLUTE NEUTROPHILS 6.4 thou/uL (1.6-8.1); BASOPHILS 0.8 %; EOSINOPHILS 1.4 %; HEMATOCRIT 29.7 % (37.0-47.0); HEMOGLOBIN 9.6 gm/dL (12.0-15.0); LYMPHOCYTES 10.9 %; MCHC 32.5 g/dL (28.0-37.0); MCV 83.1 fL (80.0-100.0); MONOCYTES 6.9 %; MPV 8.5 fl. (7.2-11.1); NUCLEATED RBCS 0 /100WBC; PLATELET COUNT* 283 thou/uL (150-400); RBC 3.57 mil/uL (4.20-5.00); RDW-CV 15.4 % (10.5-14.5); WBC 8.1 thou/uL (4.0-11.0)
[2019-01-21 17:18] LABS: ANION GAP 10 mmol/L (7-16); BUN 39 mg/dL (7-18); CALCIUM 9.2 mg/dL (8.5-10.1); CHLORIDE 101 mmol/L (98-107); CO2 21 mmol/L (21-32); CREATININE 1.8 mg/dL (0.6-1.3); GLUCOSE 136 mg/dL (70-99); POTASSIUM 4.9 mmol/L (3.5-5.1); SODIUM 132 mmol/L (136-145)
[2019-01-21 17:23] LABS: ALBUMIN 3.5 g/dL (3.4-5.0); ALKALINE PHOSPHATASE 47 U/L (46-116); LIPASE 205 U/L (73-393); SGOT 12 U/L (15-37); SGPT 12 U/L (30-65); TOTAL BILIRUBIN 0.3 mg/dL (<0.1-1.0); TOTAL PROTEIN 8.8 g/dL (6.4-8.2); TROPONIN-I LEVEL <0.06 ng/mL (<0.06)
[2019-01-21 18:02] VITALS: BP 144/90
[2019-01-21 18:23] LABS: URINE BILIRUBIN NEGATIVE (Negative); URINE BLOOD TRACE (Negative); URINE CLARITY CLEAR; URINE COLOR YELLOW; URINE GLUCOSE-RANDOM NEGATIVE (Negative); URINE KETONES NEGATIVE (Negative); URINE LEUKOCYTES-REFLEX 1+ (Negative); URINE NITRITE-REFLEX NEGATIVE (Negative); URINE PROTEIN TRACE (Negative); URINE UROBILINOGEN 0.2 E.U./dl (0.2-1.0)
[2019-01-21 18:30] VITALS: BP 142/61
[2019-01-21 18:37] LABS: SQUAMOUS 0-3 Few /LPF (0-3); URINE WBC-REFLEX >25 Many /HPF (0-5)
[2019-01-21 18:38] LABS: BACTERIA-REFLEX >30 Many /HPF (None Seen); CASTS None Seen /LPF (None Seen); CRYSTALS None Seen /LPF (None Seen); URINE RBC 3-10 Few /HPF (0-2)
[2019-01-21 18:53] LABS: CALCIUM 8.6 mg/dL (8.5-10.1); CREATININE 1.6 mg/dL (0.6-1.3); MAGNESIUM 1.6 mg/dL (1.8-2.4); POTASSIUM 4.9 mmol/L (3.5-5.1)
--- NOTE | 2019-01-21 20:26 | NUR ---
PATIENT ARRIVED TO UNIT AT 1830. ALERT AND ORIENTED X4. ADMISSION HISTORY AND ASSESSMENT COMPLETED AND CHARTED. VSS ON ROOM AIR. PATIENT HAD NO COMPLAINTS OF PAIN OR NAUSEA UPON ARRIVAL TO UNIT. PATIENT STATED THAT HER PAIN HAD BEEN COMPLETELY RESOLVED AFTER BEING GIVEN PAIN MEDICATION IN THE EMERGENCY ROOM. ORIENTED PATIENT AND FAMILY TO THE UNIT AND ROOM. EDUCATED PATIENT ON CALLING FOR STAND BY ASSIST WHEN NEEING TO GET UP, PATIENT AGREED AND SIGNED FALL CONTRACT. PATIENT UP USING CANE. CALL LIGHT PLACED IN REACH. WILL CONTINUE TO MONITOR.
--- NOTE | 2019-01-22 04:52 | NUR ---
PATIENT HAS SLEPT OFF AND ON DURING THE NIGHT. VSS ON RA. NO C/O PAIN. MEDICATIONS GIVEN ORDERED AND CHARTED. PATIENT IS UP WITH SBA WITH CANE TO THE BATHROOM. IV IN LEFT AC-NS @ 100ML/HR. IV ABT GIVEN WITHOUT ANY ADVERSE SIDE EFFECTS NOTED. PATIENT INSTRUCTED TO USE CALL LIGHT WHEN NEEDING ASSISTANCE. HOURLY ROUNDS MADE. WILL CONTINUE WITH PLAN OF CARE AND NURSING TO MONITOR.
[2019-01-22 05:25] LABS: HEMATOCRIT 25.1 % (37.0-47.0); HEMOGLOBIN 8.2 gm/dL (12.0-15.0); MCH 27.2 pg (26.0-34.0); MCHC 32.6 g/dL (28.0-37.0); MCV 83.5 fL (80.0-100.0); MPV 8.1 fl. (7.2-11.1); RDW-CV 15.3 % (10.5-14.5); WBC 7.4 thou/uL (4.0-11.0)
[2019-01-22 05:52] LABS: CALCIUM 8.3 mg/dL (8.5-10.1); CREATININE 1.6 mg/dL (0.6-1.3); POTASSIUM 4.9 mmol/L (3.5-5.1)
--- NOTE | 2019-01-22 11:19 | EKG ---
[place] [address] ELECTROCARDIOGRAM REPORT Name: RUPINDER BRADEN Room: [address] ADM IN .R.#: [id number] Admission: 01/21/19 Attend Phys: Juan Luis Rodriguez Discharge: Date of : 41 Report #: [id number] THIS REPORT FOR: //name// 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 : 1945 Requested By: Gurpreet Mohr Order Number: [id number] MD: Lucho Trinh Measurements Intervals [place] Rate: 90 P: 33 DE: 168 QRS: -31 QRSD: 98 T: 60 QT: 345 QTc: 422 Interpretive Statements Sinus rhythm Left axis deviation Consider anterior infarct Baseline wander in lead(s) V2 Compared to ECG 10/01/2018 09:41:32 no change Electronically Signed On 01-22-2019 11:19:28 CDT by Lucho Trinh [email or web address] <ELECTRONICALLY SIGNED> By: Lucho Trinh MD, [facility] 01/22/19 1119 1650 1650 Lucho Trinh MD, [facility] /EPI
[2019-01-22 15:25] LABS: HEMATOCRIT 26.3 % (37.0-47.0); HEMOGLOBIN 8.5 gm/dL (12.0-15.0)
[2019-01-22 16:00] VITALS: BP 147/75
--- NOTE | 2019-01-22 17:06 | NUR ---
PATIENT ALERT AND ORIENTED X 4. VITAL SIGNS STABLE ON ROOM AIR. AFEBRILE. UP WITH ASSISTANCE TO THE BATHROOM. PAIN BEING MANAGED WITH IV MEDICATION. DENIES NAUSEA. FALL PRECAUTIONS IN PLACE AND BED ALARM ON. HOURLY ROUNDS MAINTAINED THROUGHOUT THE SHIFT. CALL LIGHT WITHIN REACH. NURSING WILL CONTINUE TO MONITOR.
[2019-01-22 19:10] LABS: CA 125 16.7 U/mL (0.0-38.1)
[2019-01-22 22:50] VITALS: BP 117/52
[2019-01-23 04:49] LABS: HEMATOCRIT 26.6 % (37.0-47.0); HEMOGLOBIN 8.6 gm/dL (12.0-15.0); MCH 26.9 pg (26.0-34.0); MCHC 32.5 g/dL (28.0-37.0); MCV 82.9 fL (80.0-100.0); MPV 7.8 fl. (7.2-11.1); RBC 3.2 mil/uL (4.20-5.00); RDW-CV 15.2 % (10.5-14.5); WBC 7.8 thou/uL (4.0-11.0)
[2019-01-23 05:07] LABS: CALCIUM 8.5 mg/dL (8.5-10.1); CREATININE 1.6 mg/dL (0.6-1.3); POTASSIUM 5.1 mmol/L (3.5-5.1)
--- NOTE | 2019-01-23 05:40 | NUR ---
PATIENT DID NOT REPORT PAIN THROUGHOUT SHIFT. FINISHED SCHEDULED ABX. WAS ABLE TO AMBULATE TO RESTROOM SEVERAL TIMES. NO NEW OR WORSENING OF SYMPTOMS. WILL CONTINUE TO MONITOR.
[2019-01-23 09:00] VITALS: BP 139/57
[2019-01-23] MEDS ORDERED: MIRALAX17 GM PO (10:14)
[2019-01-23] MEDS ORDERED: GABAPENTIN 100100 MG PO (10:18)
[2019-01-23] MEDS ORDERED: NORCO 5-325 TA1 EAC1 PO (10:19)
[2019-01-23] MEDS ORDERED: CIPRO250 M1 PO (10:20)
[2019-01-23] MEDS ORDERED: ONDANSETRON HCL4 M2 PO (10:21)
[2019-01-23 10:27] VITALS: BP 117/52
--- NOTE | 2019-01-23 12:24 | NUR ---
ASSUMED CARE OF PATIENT AT APPROX 0730. ASSESSMENT COMPLETED AND CHARTED. ALERT AND ORIENTED X4. PAIN MANAGED WITH ORAL MEDICATION. NO OTHER COMPLAINTS. UP WITH CANE TO USE THE BATHROOM. PATIENT DISCHARGED AT 1145 WITH ALL PERSONAL BELONGINGS, PRESCRIPTIONS AND DISCHARGE PAPERWORK.
== END 2019-01-23 11:45 | disposition home or self-care (01) | DRG 841 ==
LOC: M.TBA-ER 16:54 → M.ORTHSURG 16:54
PROVIDERS: Emergency Medicine Emergency Medical Services; Family Medicine; Surgery; ADMIT Internal Medicine
DX: C85.90 Non-Hodgkin lymphoma, unspecified, unspecified site (principal); N39.0 Urinary tract infection, site not specified; N18.4 Chronic kidney disease, stage 4 (severe); I12.9 Hypertensive chronic kidney disease with stage 1 through stage 4 chronic kidney disease, or unspecified chronic kidney disease; R59.0 Localized enlarged lymph nodes; E03.9 Hypothyroidism, unspecified; K21.9 Gastro-esophageal reflux disease without esophagitis; K59.00 Constipation, unspecified; E11.22 Type 2 diabetes mellitus with diabetic chronic kidney disease; E78.5 Hyperlipidemia, unspecified; D50.0 Iron deficiency anemia secondary to blood loss (chronic); E66.9 Obesity, unspecified; Z68.34 Body mass index [BMI] 34.0-34.9, adult; Z90.710 Acquired absence of both cervix and uterus; Z90.49 Acquired absence of other specified parts of digestive tract; Z88.8 Allergy status to other drugs, medicaments and biological substances; Z85.038 Personal history of other malignant neoplasm of large intestine

== ENCOUNTER → 2019-01-28 | Outpatient (CLI) | payer OTHER, SELFPAY ==
[2019-01-28] VITALS (10 sets, daily range): BP systolic 127–162; BP diastolic 53–91
[~2019-01-28] VITALS: Ht 157.5 cm; Wt 86.2 kg
[~2019-01-28] MED LIST changes: +CIPRO250 M1 PO; +GABAPENTIN 100100 MG PO; +ONDANSETRON HCL4 M2 PO
== END | disposition home or self-care (01) ==
LOC: M.CT 09:04
DX: C83.30 Diffuse large B-cell lymphoma, unspecified site (principal); I10 Essential (primary) hypertension; E03.9 Hypothyroidism, unspecified; E11.9 Type 2 diabetes mellitus without complications; F32.9 Major depressive disorder, single episode, unspecified; Z90.49 Acquired absence of other specified parts of digestive tract; Z98.890 Other specified postprocedural states; Z79.899 Other long term (current) drug therapy; Z88.8 Allergy status to other drugs, medicaments and biological substances

== ENCOUNTER → 2019-02-10 | Outpatient (CLI) | payer OTHER, SELFPAY ==
[~2019-02-10] VITALS: Ht 154.9 cm; Wt 87.0 kg
[2019-02-10 09:32] VITALS: BP 144/62
[2019-02-10 09:36] LABS: HEMATOCRIT 27.6 % (37.0-47.0); HEMOGLOBIN 9.3 gm/dL (12.0-15.0); MCH 27.1 pg (26.0-34.0); MCHC 33.8 g/dL (28.0-37.0); MPV 8.6 fl. (7.2-11.1); NUCLEATED RBCS 0 /100WBC; PLATELET COUNT* 228 thou/uL (150-400); RBC 3.45 mil/uL (4.20-5.00); RDW-CV 14.9 % (10.5-14.5); WBC 7.6 thou/uL (4.0-11.0)
[2019-02-10 09:43] LABS: APTT 26.6 Seconds (25.0-31.3); PROTIME 10.7 Seconds (9.20-11.50)
[2019-02-10 09:59] LABS: ABSOLUTE EOSINOPHILS 0.4 thou/uL (0.0-0.7); ABSOLUTE LYMPHOCYTES 0.9 thou/uL (0.8-5.3); ABSOLUTE MONOCYTES 0.2 thou/uL (0.0-1.2); ABSOLUTE NEUTROPHILS 6.2 thou/uL (1.6-8.1); PLATELET ESTIMATE ADEQUATE
[2019-02-10 10:00] LABS: ANISOCYTOSIS 1+; LARGE PLATELETS RARE; POIKILOCYTOSIS 1+
[2019-02-10 11:37] VITALS: BP 122/50
[2019-02-10 11:55] VITALS: BP 125/60
[2019-02-10 12:05] VITALS: BP 135/60
[2019-02-10 12:19] VITALS: BP 127/54
--- NOTE | 2019-02-15 22:07 | PATH ---
[address] [address] PATHOLOGY RPT PROCEDURE Name: RUPINDER HAYWOOD Room: [facility].Mragarita.#: [id number] Admission: 02/10/19 Date of : 41 Discharge: Report #: [id number] Path Case #: [id number] LCA Accession Number: [id number] . 01 Material submitted: . PART A: bone - BONE MARROW BIOPSY PART B: bone - BONE MARROW CLOT PART C: bone - BONE MARROW ASPIRATE SLIDES PART D: bone - PERIPHERAL BLOOD SMEARS PART E: bone - BONE MARROW FLOW . 01 Clinical history: . Please refer to requisition for information 73-year-old woman with non-Hodgkin's lymphoma. This is a staging marrow. . 02 Diagnosis: Bone marrow aspirate, biopsy, cell clot and peripheral blood: - Peripheral blood with moderate normocytic to mildly microcytic anemia. - HYPERCELLUAR BONE MARROW WITH TRILINEAGE HEMATOPOIESIS AND INVOLVEMENT BY THE PATIENT'S PREVIOUSLY DIAGNOSED B CELL LYMPHOMA, MOST CONSISTENT WITH FOLLICULAR LYMPHOMA. (APPROXIMATELY 30% INVOLVEMENT BY IMMUNOHISTOCHEMICAL STAINING). - No stainable iron. - See comment. (ROMELIA:faviola; 02/15/2019) . . . . . Special studies report received from [facility], [address] [place] [address], [address], [place], [address], on case [id number], labeled with their number [id number], dated 02/13/2019. . Flow Cytometry: Hematologic Neoplasia Assessment . Clinical History Follicular lymphoma . Indication for Study Evaluation for lymphoma . Specimen Bone Marrow Aspirate . Viability 84% (7AAD exclusion) [place] [address] PATHOLOGY RPT PROCEDURE Name: RUPINDER HAYWOOD Room: [facility].#: [id number] Admission: 02/10/19 Date of : 41 Discharge: Report #: [id number] Path Case #: [id number] Bone Marrow Aspirate: No significant immunophenotypic abnormalities detected . Comments No immunophenotypic evidence of B-cell non-Hodgkin lymphoma is detected in this analysis. Some large cell lymphomas are prone to rapid degeneration which can render such lesions undetectable by flow cytometry. Also, Hodgkin lymphoma, some T cell lymphomas, and T-cell-rich B-cell lymphoma may not be detectable by flow cytometry. A thorough clinical, histologic and immunohistochemical correlation is recommended for full exclusion of non-Hodgkin lymphoma. "No immunophenotypic evidence of acute leukemia, T-cell lymphoproliferative disorder, plasma cell dyscrasia or specific immunophenotypic changes associated with MDS or MPN is detected in this analysis. Notably, hematologic conditions such as MDS and MPN are difficult to definitively diagnose or exclude solely by flow cytometric analysis. The requested cytogenetic and FISH studies have been ordered and will be reported separately upon completion. A thorough clinical and pathologic correlation is recommended prior to the final disposition of this case. . Populations Analyzed Myeloid Blasts: 0.3% No significant immunophenotypic abnormalities Lymphocytes: 6% B-cells: 0.7%, polytypic/polyclonal sIg light chain pattern (K/L= 1.9:1 T-cells: no significant abnormalities of the markers tested CD4+ T-cells: 3.1% (including 0.2% CD57+ cells) CD8+ T-cells: 1.2% (including 0.3% CD57+ cells) CD4:CD8: 2.6 NK cells: 1.3% Neutrophilic Cells: 88% Analysis for this population shows a myeloid phenotype with immunophenotypic evidence of sap treasury consultant maturation. Monocytic Cells: 2% Monocytes are not increased and have normal expression of monocyte related antigens. Eosinophils: 2% No relative increase Basophils: 0.5% No relative increase Plasma Cells: 0.1% Few detected; no overt abnormalities of the surface markers tested (plasma cells are typically underrepresented by flow cytometry; cytoplasmic light chains were not assessed) Hematogones: 0.3% Normal B-cell precursors CD45 Negative 0.4% No significant reactivity with the markers Events/Debris: tested (may represent unlysed red blood cells, erythroid precursors, platelets, debris, etc.) (erythroid precursors may be underrepresented due to sample lysis/processing) [place] [address] PATHOLOGY RPT PROCEDURE Name: RUPINDER HAYWOOD Room: [facility] Jackson#: [id number] Admission: 02/10/19 Date of : 41 Discharge: Report #: [id number] Path Case #: [id number] Morphologic Evaluation A slide was reviewed for quality assurance advisor purposes only. . Specimen Description Total Cell Yield: 8.78 x 10 and 6 . Pertinent Prior Test Results Received Date Test Type Specimen Type Result 01/29/2019 Flow Cytometry Tissue Result Number: [id number] Tissue, Retroperitoneal LN, left: - CD10+ monotypic (clonal) B-cell population (41% of sample) with predominantly small to intermediate/mixed cell size (see comments) . Reagent(s) Used CD2, CD3, CD4, CD5, CD7, CD8, CD10, CD11b, CD13, CD14, CD16, CD19, CD20, CD22, CD23, CD33, CD34, CD38, CD45, CD56, CD57, CD64, CD117, FMC-7, HLA-DR, kappa, lambda . at [facility]. Tee Kenney MD Pathologist . . Intended Use Flow cytometry is optimally used to immunophenotypically characterize abnormal populations when they are detected. Negative flow cytometry results do not exclude lymphoma or neoplasia. Possible false negative flow cytometry results may occur in, but are not limited to, the following: neoplastic cells in Hodgkin lymphoma are not typically adequately represented by routine clinical flow cytometry; neoplastic cells may be lost or inadequately represented due to degeneration, sample processing, sampling artifact, or patchy involvement; plasma cells are typically underrepresented by flow cytometry; immature cells/blasts may be underrepresented due to hemodilution; myeloproliferative disorders and low grade myelodysplasia may not have immunophenotypic abnormalities or increased blasts. Correlation with all available clinical, laboratory, and morphologic data is always necessary to assess for the possibility of false negative flow cytometry results and to establish a diagnosis. Each marker in this analysis was used to assess for potential antigenic abnormalities or to evaluate detected abnormalities. . Disclaimer(s) This test was performed at [facility]. at [address], [address] - Instrumentation Engineering Technician: [address] [address] PATHOLOGY RPT PROCEDURE Name: RUPINDER HAYWOOD Room: [facility] M.R.#: [id number] Admission: 02/10/19 Date of : 41 Discharge: Report #: [id number] Path Case #: [id number] MD Braden. [facility] is a business unit of [employer], [employer] a wholly-owned subsidiary of [employer]. . Any image or images that accompany this report are guest services representative images only and should not be used to render a diagnosis. . This test was developed and its performance characteristics determined by [facility]. It has not been cleared or approved by the Food and Drug Administration (FDA). The FDA has determined that such clearance or approval is not necessary. . For inquiries, the physician may contact Lab: [phone] . A complete copy of the report is on file. . Professional services performed by [facility]. at [address], [place] [address]. Technical services performed by [employer]. at [address], [place] [address]. . (CLW:leonor 02/15/2019) . MBR 02/15/2019 2137 Local . 02 Comment: Overall the bone marrow in hypercellular for the patient's age with trilineage hematopoiesis and involvement by the patient's previously diagnosed "CD10 positive B-cell lymphoma, most consistent with follicular lymphoma" from a left retroperitoneum lymph node needle biopsy ([id number]). There is approximately 30% involvement by immunohistochemical staining. The dyserythropoiesis is mild and does not meet the morphologic criteria for myelodysplasia. Of note, no stainable iron is identified. Correlation with clinical history, additional laboratory data, radiographic findings and cytogenetics is recommended. (CLW:faviola; 02/15/2019) . 02 Electronically signed: . Jessica Ruth MD, Pathologist NPI- [id number] . 01 Gross description: . A. Received in formalin labeled "Rupinder Haywood core," are 2 needle cores of gilman bone measuring 0.5 and 1.1 cm in length and 0.2 cm each in diameter. The specimen is submitted entirely in cassette A1, following [place] [address] PATHOLOGY RPT PROCEDURE Name: RUPINDER HAYWOOD Room: [facility] Jackson#: [id number] Admission: 02/10/19 Date of : 41 Discharge: Report #: [id number] Path Case #: [id number] B. Received in formalin labeled "Rupinder Haywood, laurita," is an aggregate of dark gilman blood clot measuring 2.4 x 1.5 x 1.6 cm. The specimen is filtered and entirely submitted in cassette B1 through B3. (TSD; 02/10/2019) TOB/TOB 02/10/2019 2032 Local . 02 Microscopic: . CBC Data (02/10/19): WBC 7,600 /uL, RBC 3.45, hemoglobin 9.3 g/dL, hematocrit 27.6%, MCV 80.0 fL, MCH 27.1 pg, MCHC 33.8 g/dL, RDW 14.9%, and platelet count 228,000 /uL. Manual white blood cell differential: Segs 81%, lymphs 12%, monos 2%, eos 5%. . Peripheral Blood Smear: Cytomorphological examination of the Avery's stained peripheral blood smear confirms the provided data. Red blood cells show moderate normocytic to mildly microcytic anemia with mild anisocytosis. No significant poikilocytosis is identified. White blood cells are predominantly segmented neutrophils and are without significant dyspoiesis or significant left shift. Lymphocytes are predominantly small, round, and mature appearing with condensed chromatin and scant cytoplasm with admixed large granular lymphocytes. On scanning, no markedly atypical lymphoid cells are seen. Monocytes are mature. Platelets are adequate in number and mainly normal in morphology with rare larger platelets noted. . Aspirate Smears: Cytomorphological examination of the Avery's stained aspirate smears show spicules present. The overall cellularity is approximately 50%. The myeloid to erythroid ratio is 2:1. Full myeloid maturation is identified and is without significant dyspoiesis. Erythroid maturation is mildly dyserythropoietic with irregular nuclear contours, mitotic figures and nuclear cytoplasmic dyssynchrony. In a 500 cell differential, there are 1% blasts (no Lia rods are seen), 54% more differentiated myeloids, 25% erythroid precursors, 20% lymphocytes and less than 1% plasma cells. Megakaryocytes are proportional in number and both normal and abnormal in morphology with variable sizes and nuclei abnormalities. There is an increase in small mature appearing lymphocytes with condensed chromatin and scant cytoplasm. No well-formed lymphoid aggregates or markedly atypical lymphoid cells are seen. Plasma cells are without atypia. Iron stain of the aspirate smear shows 0/4+ iron positivity with spicules present. No ringed sideroblasts are identified. . Core Biopsy and Cell Clot: The decalcified bone marrow core biopsy is adequate. The bone marrow is hypercellular with an overall cellularity of approximately 70%. There are large lymphoid aggregates. Apart from the lymphoid aggregates, the bone marrow appears approximately 50-60% cellular. The myeloid to erythroid ratio is 2:1. Myeloid maturation is without significant dyspoiesis. Erythroid maturation is mildly dyserythropoietic. Megakaryocytes are normal in number and both normal and abnormal in morphology. Again, [place] [address] PATHOLOGY RPT PROCEDURE Name: RUPINDER HAYWOOD Room: [facility].#: [id number] Admission: 02/10/19 Date of : 41 Discharge: Report #: [id number] Path Case #: [id number] lymphoid aggregates (both paratrabecular and diffusely expanded paratrabecular/interstitial) are present. The lymphocytes are predominantly small round and mature appearing with condensed chromatin and scant cytoplasm. No markedly atypical lymphoid cells are seen. Bony trabeculae and blood vessels are unremarkable. The cell clot has rare spicules present that are similar in cellularity and differential morphology as previously described. . Properly controlled special stains are performed. . Block A1 Iron - 0/4+ iron positivity; Reticulin - no significant reticulin fibrosis within the trilineage hematopoiesis, mild reticulin fibrosis within the lymphoid aggregate. . Block B1 Iron - 0/4+ iron positivity with rare spicules present. . To further quantify the neoplastic B-cell population and to identify cells in a tissue architectural context, properly controlled immunohistochemical stains are performed. . Block A1 CD20 - stains approximately 30% neoplastic B-cells; PAX-5 - stains approximately 30% neoplastic B-cells; CD3 - highlights admixed T-cells. . Flow Cytometry: Flow cytometric immunophenotypic analysis was performed at [facility]. The diagnosis is "no significant immunophenotypic abnormalities detected." There are 0.3% myeloid blasts. There are 6% lymphocytes. Of the lymphocytes, there are 0.7% polyclonal B-cells (kappa lambda ratio of 1.9). T-cells have a CD4/CD8 ratio of 2.6 and no aberrant T-cell antigen expression. Please see separate flow cytometry report from [facility] ([id number]). . Cytogenetics Analysis: Cytogenetic chromosomal analysis is pending at [facility] ([id number]). . (CLW:faviola; 02/15/2019) . 02 Pathologist provided ICD-10: D64.9, C82.90 . 02 CPT . 465388, 805790, 848966, 251802, 153118, 395289, 827475, 479883, 394811, S03794, I98934 Specimen Comment: A courtesy copy of [place] [address] PATHOLOGY RPT PROCEDURE Name: SAMPSONRUPINDER ALVAE Room: [facility] Jackson#: [id number] Admission: 02/10/19 Date of : 41 Discharge: Report #: [id number] Path Case #: [id number] Specimen Comment: [phone], , , . Specimen Comment: Report sent to ,DR MURPHY,DR EWING / DR VINSON Performed at: 01 [facility] [address] [id number] MD Olman Hammond MD Phone: [phone] Performed at: 02 [facility] [address] [id number] MD Eliezer Kennedy MD Phone: [phone]
== END | disposition home or self-care (01) ==
LOC: M.INT 08:56
PROVIDERS: Internal Medicine Cardiovascular Disease
DX: C85.90 Non-Hodgkin lymphoma, unspecified, unspecified site (principal); C82.90 Follicular lymphoma, unspecified, unspecified site; D50.9 Iron deficiency anemia, unspecified; D70.4 Cyclic neutropenia; I10 Essential (primary) hypertension; E03.9 Hypothyroidism, unspecified; E11.9 Type 2 diabetes mellitus without complications; K21.9 Gastro-esophageal reflux disease without esophagitis; F32.9 Major depressive disorder, single episode, unspecified; Z79.4 Long term (current) use of insulin; Z90.49 Acquired absence of other specified parts of digestive tract; Z98.890 Other specified postprocedural states; Z88.8 Allergy status to other drugs, medicaments and biological substances; Z79.899 Other long term (current) drug therapy; Z79.01 Long term (current) use of anticoagulants

== ENCOUNTER 2019-02-18 21:30 | Emergency (ER) | payer OTHER ==
[~2019-02-18] VITALS: Ht 154.9 cm; Wt 86.6 kg
[2019-02-18] MEDS ORDERED: TOUJEO SOL300 UNIT/1 SUBQ (21:45)
[2019-02-18 22:03] LABS: HEMATOCRIT 29.1 % (37.0-47.0); HEMOGLOBIN 9.5 gm/dL (12.0-15.0); MCH 26.6 pg (26.0-34.0); MCHC 32.7 g/dL (28.0-37.0); MCV 81.3 fL (80.0-100.0); MPV 8.6 fl. (7.2-11.1); NUCLEATED RBCS 0 /100WBC; PLATELET COUNT* 239 thou/uL (150-400); RBC 3.58 mil/uL (4.20-5.00); RDW-CV 14.8 % (10.5-14.5); WBC 10.2 thou/uL (4.0-11.0)
[2019-02-18 22:04] LABS: BE -7.9 mmol/L (-2 to +3); PCO2 VENOUS 30.7 mmHg (41.0-51.0); PO2 VENOUS 89.2 mmHg (35.0-45.0)
[2019-02-18 22:15] LABS: CREATININE 2.3 mg/dL (0.6-1.3); POTASSIUM 5.6 mmol/L (3.5-5.1)
[2019-02-18 22:17] LABS: ALBUMIN 3.4 g/dL (3.4-5.0); TOTAL BILIRUBIN 0.2 mg/dL (<0.1-1.0); TOTAL PROTEIN 8.1 g/dL (6.4-8.2)
[2019-02-18 22:50] LABS: ABSOLUTE LYMPHOCYTES 0.4 thou/uL (0.8-5.3); ABSOLUTE NEUTROPHILS 9.8 thou/uL (1.6-8.1); PLATELET ESTIMATE ADEQUATE
[2019-02-18 23:10] LABS: CALCIUM 8.8 mg/dL (8.5-10.1); CREATININE 2.3 mg/dL (0.6-1.3)
[2019-02-18 23:23] VITALS: BP 166/70
== END 2019-02-18 23:23 | disposition home or self-care (01) ==
LOC: M.ERS 21:30
PROVIDERS: Family Medicine
DX: E11.65 Type 2 diabetes mellitus with hyperglycemia (principal); K21.9 Gastro-esophageal reflux disease without esophagitis; I10 Essential (primary) hypertension; E03.9 Hypothyroidism, unspecified; Z90.49 Acquired absence of other specified parts of digestive tract; Z79.4 Long term (current) use of insulin; Z88.8 Allergy status to other drugs, medicaments and biological substances

== ENCOUNTER 2019-03-18 20:31 | Emergency (ER) | payer OTHER ==
[~2019-03-18] VITALS: Ht 154.9 cm; Wt 88.0 kg
[~2019-03-18 20:31] MED LIST changes: +TOUJEO SOL300 UNIT/1 SUBQ
[2019-03-18 22:01] LABS: URINE BILIRUBIN NEGATIVE (Negative); URINE BLOOD NEGATIVE (Negative); URINE CLARITY CLEAR; URINE COLOR YELLOW; URINE GLUCOSE-RANDOM NEGATIVE (Negative); URINE KETONES NEGATIVE (Negative); URINE LEUKOCYTES-REFLEX NEGATIVE (Negative); URINE NITRITE-REFLEX NEGATIVE (Negative); URINE PROTEIN NEGATIVE (Negative); URINE SPECIFIC GRAVITY <= 1.005 (1.005-1.030); URINE UROBILINOGEN 0.2 E.U./dl (0.2-1.0)
[2019-03-18 22:21] LABS: HEMATOCRIT 29.5 % (37.0-47.0); HEMOGLOBIN 9.6 gm/dL (12.0-15.0); MCH 27.2 pg (26.0-34.0); MCHC 32.7 g/dL (28.0-37.0); MCV 83.2 fL (80.0-100.0); MPV 8.3 fl. (7.2-11.1); NUCLEATED RBCS 0 /100WBC; PLATELET COUNT* 132 thou/uL (150-400); RBC 3.54 mil/uL (4.20-5.00); RDW-CV 18.6 % (10.5-14.5); WBC 4.6 thou/uL (4.0-11.0)
[2019-03-18 22:30] LABS: CALCIUM 9.4 mg/dL (8.5-10.1); CREATININE 1.9 mg/dL (0.6-1.3); POTASSIUM 5.4 mmol/L (3.5-5.1)
[2019-03-18 22:34] LABS: ALBUMIN 3.5 g/dL (3.4-5.0); TOTAL BILIRUBIN 0.2 mg/dL (<0.1-1.0); TOTAL PROTEIN 7.6 g/dL (6.4-8.2)
[2019-03-18 22:43] LABS: ABSOLUTE LYMPHOCYTES 0.1 thou/uL (0.8-5.3); ABSOLUTE NEUTROPHILS 4.5 thou/uL (1.6-8.1)
[2019-03-18 22:44] LABS: ANISOCYTOSIS 1+; PLATELET ESTIMATE ADEQUATE
[2019-03-19 00:29] VITALS: BP 131/70
== END 2019-03-19 00:29 | disposition home or self-care (01) ==
LOC: M.ERS 20:31
PROVIDERS: Personal Emergency Response Attendant
DX: E11.65 Type 2 diabetes mellitus with hyperglycemia (principal); E03.9 Hypothyroidism, unspecified; K21.9 Gastro-esophageal reflux disease without esophagitis; Z90.49 Acquired absence of other specified parts of digestive tract; Z88.8 Allergy status to other drugs, medicaments and biological substances; Z79.4 Long term (current) use of insulin

== ENCOUNTER 2019-03-22 15:08 | Inpatient (IN) | payer OTHER ==
[~2019-03-22] VITALS: Ht 154.9 cm; Wt 87.1 kg
[2019-03-22 15:45] VITALS: BP 142/77
[2019-03-22 16:02] LABS: HEMATOCRIT 29.6 % (37.0-47.0); HEMOGLOBIN 10.1 gm/dL (12.0-15.0); MCH 27.8 pg (26.0-34.0); MCV 81.5 fL (80.0-100.0); MPV 7.9 fl. (7.2-11.1); NUCLEATED RBCS 0 /100WBC; PLATELET COUNT* 187 thou/uL (150-400); RBC 3.63 mil/uL (4.20-5.00); RDW-CV 17.8 % (10.5-14.5); WBC 6.8 thou/uL (4.0-11.0)
[2019-03-22 16:07] LABS: CALCIUM 9.5 mg/dL (8.5-10.1); CREATININE 1.7 mg/dL (0.6-1.3); POTASSIUM 4.5 mmol/L (3.5-5.1)
[2019-03-22 16:11] LABS: ALBUMIN 3.5 g/dL (3.4-5.0); TOTAL BILIRUBIN 0.3 mg/dL (<0.1-1.0); TOTAL PROTEIN 7.3 g/dL (6.4-8.2)
[2019-03-22 16:23] LABS: URINE BILIRUBIN NEGATIVE (Negative); URINE BLOOD NEGATIVE (Negative); URINE CLARITY CLEAR; URINE COLOR YELLOW; URINE GLUCOSE-RANDOM TRACE (Negative); URINE KETONES NEGATIVE (Negative); URINE LEUKOCYTES-REFLEX 1+ (Negative); URINE NITRITE-REFLEX NEGATIVE (Negative); URINE PROTEIN NEGATIVE (Negative); URINE SPECIFIC GRAVITY 1.015 (1.005-1.030); URINE UROBILINOGEN 0.2 E.U./dl (0.2-1.0)
[2019-03-22 16:39] LABS: ABSOLUTE EOSINOPHILS 0.1 thou/uL (0.0-0.7); ABSOLUTE LYMPHOCYTES 0.1 thou/uL (0.8-5.3); ABSOLUTE MONOCYTES 0.2 thou/uL (0.0-1.2); ABSOLUTE NEUTROPHILS 6.4 thou/uL (1.6-8.1)
[2019-03-22 16:40] LABS: ANISOCYTOSIS 1+; PLATELET ESTIMATE ADEQUATE
[2019-03-22 16:54] LABS: SQUAMOUS >10 Many /LPF (0-3); URINE WBC-REFLEX >25 Many /HPF (0-5); WBC CLUMPS Few (None Seen)
[2019-03-22 16:56] LABS: BACTERIA-REFLEX >30 Many /HPF (None Seen); CASTS None Seen /LPF (None Seen); CRYSTALS None Seen /LPF (None Seen); MUCUS None Seen strn/LPF (None Seen); YEAST-REFLEX Present (None Seen)
[2019-03-22 16:57] LABS: URINE RBC None Seen /HPF (0-2)
[2019-03-22 20:55] VITALS: BP 150/71
[2019-03-23 08:40] VITALS: BP 124/58
--- NOTE | 2019-03-23 09:32 | EKG ---
[place] [address] ELECTROCARDIOGRAM REPORT Name: RUPINDER BRADEN Room: [address] ADM IN M.R.#: [id number] Admission: 03/22/19 Attend Phys: Evie Bryant MD Discharge: Date of : 41 Report #: [id number] THIS REPORT FOR: //name// [facility] ED Test Date: 2019-03-22 Test Time: 15:57:19 Pat Name: RUPINDER BRADEN Department: Room: [facility] Gender: F Compressor Battery Pellets: EV : 1945 Requested By: Phill Sanders Order Number: [id number] MD: Lucho Trinh Measurements Intervals [place] Rate: 92 P: 48 AK: 159 QRS: -33 QRSD: 93 T: 60 QT: 348 QTc: 431 Interpretive Statements Sinus rhythm Low voltage, precordial leads Probable left ventricular hypertrophy Anterior Q waves, possibly due to LVH Compared to ECG 01/21/2019 16:50:39 Low QRS voltage now present Q waves now present Electronically Signed On 03-23-2019 9:32:39 CDT by Lucho Trinh [email or web address] <ELECTRONICALLY SIGNED> By: Lucho Trinh MD, FACC 03/23/19 0932 1557 1557 Lucho Trinh MD, [facility] /EPI
[2019-03-23 16:05] VITALS: BP 132/62
[2019-03-23 19:30] VITALS: BP 146/52
[2019-03-24 05:07] LABS: HEMATOCRIT 26.7 % (37.0-47.0); MCH 27.8 pg (26.0-34.0); MCHC 33.8 g/dL (28.0-37.0); MCV 82.3 fL (80.0-100.0); MPV 7.9 fl. (7.2-11.1); RBC 3.24 mil/uL (4.20-5.00); RDW-CV 17.9 % (10.5-14.5); WBC 6.6 thou/uL (4.0-11.0)
[2019-03-24 05:20] LABS: CALCIUM 8.1 mg/dL (8.5-10.1); CREATININE 1.4 mg/dL (0.6-1.3); MAGNESIUM 2.2 mg/dL (1.8-2.4); POTASSIUM 3.9 mmol/L (3.5-5.1); TOTAL BILIRUBIN 0.3 mg/dL (<0.1-1.0); TOTAL PROTEIN 6.4 g/dL (6.4-8.2)
[2019-03-24 07:45] VITALS: BP 139/63
[2019-03-24] MEDS ORDERED: DULCOLAX10 MG RECTAL (09:59)
[2019-03-24] MEDS ORDERED: CEFUROXIME250 MG PO (09:59)
[2019-03-24 11:11] VITALS: BP 139/63
== END 2019-03-24 12:21 | disposition home or self-care (01) | DRG 689 ==
LOC: M.ERS 15:08 → M.TBA-ER 18:11 → M.3W 18:11
PROVIDERS: Family Medicine; Physician Assistant; ADMIT Internal Medicine
DX: N30.91 Cystitis, unspecified with hematuria (principal); N17.0 Acute kidney failure with tubular necrosis; E87.1 Hypo-osmolality and hyponatremia; E11.9 Type 2 diabetes mellitus without complications; E03.9 Hypothyroidism, unspecified; K21.9 Gastro-esophageal reflux disease without esophagitis; I10 Essential (primary) hypertension; Z96.1 Presence of intraocular lens; Z53.29 Procedure and treatment not carried out because of patient's decision for other reasons; K59.00 Constipation, unspecified; G89.29 Other chronic pain; Z90.49 Acquired absence of other specified parts of digestive tract; Z98.42 Cataract extraction status, left eye; Z98.41 Cataract extraction status, right eye; Z92.21 Personal history of antineoplastic chemotherapy; Z85.72 Personal history of non-Hodgkin lymphomas; Z88.8 Allergy status to other drugs, medicaments and biological substances; Z80.8 Family history of malignant neoplasm of other organs or systems; Z80.0 Family history of malignant neoplasm of digestive organs

== ENCOUNTER 2019-04-19 03:10 | Emergency (ER) | payer OTHER ==
[~2019-04-19] VITALS: Ht 154.9 cm; Wt 87.1 kg
[~2019-04-19 03:10] MED LIST changes: +CEFUROXIME250 MG PO; +DULCOLAX10 MG RECTAL
[2019-04-19 03:47] LABS: HEMATOCRIT 28.3 % (37.0-47.0); HEMOGLOBIN 9.3 gm/dL (12.0-15.0); MCHC 32.9 g/dL (28.0-37.0); MCV 81.9 fL (80.0-100.0); NUCLEATED RBCS 0 /100WBC; PLATELET COUNT* 177 thou/uL (150-400); RBC 3.46 mil/uL (4.20-5.00); RDW-CV 17.7 % (10.5-14.5); WBC 12.5 thou/uL (4.0-11.0)
[2019-04-19 04:02] LABS: CALCIUM 8.1 mg/dL (8.5-10.1); CREATININE 1.8 mg/dL (0.6-1.3); POTASSIUM 5.2 mmol/L (3.5-5.1)
[2019-04-19 04:07] LABS: TOTAL BILIRUBIN 0.3 mg/dL (<0.1-1.0); TOTAL PROTEIN 6.8 g/dL (6.4-8.2)
[2019-04-19] MEDS ORDERED: AMOXICILLIN500 M1 PO ×2 (04:12)
[2019-04-19 04:23] VITALS: BP 144/67
[2019-04-19 04:48] LABS: ABSOLUTE EOSINOPHILS 0.3 thou/uL (0.0-0.7); ABSOLUTE LYMPHOCYTES 0.1 thou/uL (0.8-5.3); ABSOLUTE MONOCYTES 0.9 thou/uL (0.0-1.2); ABSOLUTE NEUTROPHILS 11.3 thou/uL (1.6-8.1)
[2019-04-19 04:50] LABS: LARGE PLATELETS RARE; PLATELET ESTIMATE ADEQUATE
== END 2019-04-19 04:23 | disposition home or self-care (01) ==
LOC: M.ERS 03:10
PROVIDERS: Emergency Medicine
DX: M26.601 Right temporomandibular joint disorder, unspecified (principal); E11.9 Type 2 diabetes mellitus without complications; K21.9 Gastro-esophageal reflux disease without esophagitis; E03.9 Hypothyroidism, unspecified; I10 Essential (primary) hypertension; Z90.49 Acquired absence of other specified parts of digestive tract; Z88.1 Allergy status to other antibiotic agents

== ENCOUNTER 2019-04-19 15:03 | Emergency (ER) | payer OTHER ==
[~2019-04-19] VITALS: Ht 154.9 cm; Wt 87.2 kg
[~2019-04-19 15:03] MED LIST changes: +AMOXICILLIN500 M1 PO
[2019-04-19 19:45] VITALS: BP 165/82
== END 2019-04-19 19:46 | disposition short-term general hospital (02) ==
LOC: M.ERS 15:03
DX: L03.211 Cellulitis of face (principal); D38.0 Neoplasm of uncertain behavior of larynx; C85.90 Non-Hodgkin lymphoma, unspecified, unspecified site; E11.9 Type 2 diabetes mellitus without complications; I10 Essential (primary) hypertension; E03.9 Hypothyroidism, unspecified; K21.9 Gastro-esophageal reflux disease without esophagitis; Z90.49 Acquired absence of other specified parts of digestive tract; Z88.5 Allergy status to narcotic agent

== ENCOUNTER 2019-06-07 09:26 | Inpatient (IN) | payer OTHER, SELFPAY ==
[~2019-06-07] VITALS: Ht 157.5 cm; Wt 86.2 kg
--- NOTE | ~2019-06-07 | CON ---
[address] [address] CONSULTATION Name: SAMPSONRUPINDER FERREIRA Room: [address] IN M.R.#: [id number] Admission: 06/07/19 Attend Phys: Amol Rodriguez MD Discharge: Date of : 41 Report #: [id number] THIS REPORT FOR: //name// CC: Amol Rodriguez [facility] CONSULTING PHYSICIAN: Amol Rodriguez M.D. REASON FOR CONSULTATION: Elevated creatinine. HISTORY OF PRESENT ILLNESS: A 74-year-old female who has an underlying history of lymphoma, was admitted with a rash on her left face and was diagnosed with a facial zoster with periorbital involvement. She has been seen by Infectious Disease and is currently being treated. She denies any history of underlying chronic kidney disease, was admitted with a creatinine of 1.6. Overall, has no complaints at this time. No nausea, vomiting, or diarrhea. She appears to be comfortable. REVIEW OF SYSTEMS: Constitutional, psych, heme, eyes, ENT, respiratory, cardiac, GI, , and endocrine all negative except as documented above. PAST MEDICAL HISTORY: Lymphoma, followed by Oncology; hypertension; GERD; hypothyroidism; and diabetes type 2. SOCIAL HISTORY: No tobacco. FAMILY HISTORY: Not pertinent in this 74-year-old female. CURRENT MEDICATIONS: Reviewed. PHYSICAL EXAMINATION: VITAL SIGNS: Blood pressure 144/62, pulse 84, respirations 18, and temperature 36.7. LABORATORY DATA: White cell count 5.4, hemoglobin 8.3, platelets 146. Sodium 137, potassium 4.9, chloride 102, bicarbonate 27, BUN 23, creatinine 1.5, glucose 181, calcium 8.4, magnesium 1.8. ASSESSMENT: 1. Chronic kidney disease, stage 3. Creatinine does tend to fluctuate on my review of previous labs. At her admission, creatinine was 1.6, it is presently 1.5. UA noted. Urine culture showed no growth. 2. Anemia. 3. Left facial/periorbital shingles. 4. History of lymphoma. PLAN: We will monitor renal function, appears to be [place] [address] CONSULTATION Name: URPINDER BRADEN Room: [address] [facility].#: [id number] Admission: 06/07/19 Attend Phys: Amol Rodriguez MD Discharge: Date of : 41 Report #: [id number] Renally dose medications. She would avoid milk of magnesia, currently on lisinopril, okay to continue as renal function is overall stable. We will follow along with you. Thank you for requesting my opinion in the care and management of this patient. By: 1637 Abid Demarco Vidal MD /nt
[2019-06-07 09:32] VITALS: BP 162/94
[2019-06-07 10:37] LABS: ABSOLUTE LYMPHOCYTES 0.1 thou/uL (0.8-5.3); ABSOLUTE MONOCYTES 0.5 thou/uL (0.0-1.2); ABSOLUTE NEUTROPHILS 4.1 thou/uL (1.6-8.1); BASOPHILS 0.6 %; EOSINOPHILS 0.9 %; HEMATOCRIT 32.2 % (37.0-47.0); HEMOGLOBIN 10.5 gm/dL (12.0-15.0); LYMPHOCYTES 2.5 %; MCH 26.3 pg (26.0-34.0); MCHC 32.5 g/dL (28.0-37.0); MCV 80.7 fL (80.0-100.0); MONOCYTES 11.1 %; MPV 8.6 fl. (7.2-11.1); NUCLEATED RBCS 0 /100WBC; PLATELET COUNT* 166 thou/uL (150-400); POLYS 84.9 %; RBC 3.99 mil/uL (4.20-5.00); RDW-CV 19.8 % (10.5-14.5); WBC 4.9 thou/uL (4.0-11.0)
[2019-06-07 10:47] LABS: CALCIUM 9.1 mg/dL (8.5-10.1); CREATININE 1.6 mg/dL (0.6-1.3); POTASSIUM 4.9 mmol/L (3.5-5.1)
[2019-06-07 10:52] LABS: ALBUMIN 3.5 g/dL (3.4-5.0); TOTAL BILIRUBIN 0.3 mg/dL (<0.1-1.0); TOTAL PROTEIN 7.4 g/dL (6.4-8.2)
[2019-06-07 12:41] VITALS: BP 160/76
--- NOTE | 2019-06-07 12:55 | NUR ---
Pt discharging to acute rehab today. CM to contact Pt's son and update on POC
[2019-06-07 15:28] VITALS: BP 156/73
--- NOTE | 2019-06-07 17:56 | NUR ---
ASSESSMENT COMPLETE. PT ADMITTED WITH SHINGLES TO LEFT EYE AND HYPERGLYCEMIA. PT GIVEN GABAPENTIN AND ACYCLOVIR IV. PT HAS IV FLUIDS INFUSING. ALERT AND ORIENTED X4. HYDROCODONE GIVEN PRN FOR PAIN. ICE PACK TO LEFT EYE. ACCU CHECK ACHS. ISOLATION IN PLACE. PT IS FALL RISK, BED ALARM ON. SENNA STARTED DAILY TO PREVENT CONSTIPATION WHILE TAKING PAIN MEDICATION. PT IS UP STANDBY ASSIST. INFECTIOUS DISEASE AND ONCOLOGY CONSULTED. PT HS NO OTHER CONCERNS AT THIS TIME. SEE ASSESSMENT AND VITALS FOR OTHER DETAILS. CALL LIGHT WITHIN REACH, WILL CONTINUE PLAN OF CARE
[2019-06-07 21:00] VITALS: BP 165/81
[2019-06-08 01:41] LABS: URINE COLOR YELLOW
[2019-06-08 01:42] LABS: URINE BILIRUBIN NEGATIVE (Negative); URINE BLOOD 1+ (Negative); URINE CLARITY CLEAR; URINE GLUCOSE-RANDOM 1+ (Negative); URINE KETONES NEGATIVE (Negative); URINE NITRITE-REFLEX NEGATIVE (Negative); URINE PROTEIN TRACE (Negative); URINE SPECIFIC GRAVITY 1.015 (1.005-1.030)
[2019-06-08 01:43] LABS: URINE LEUKOCYTES-REFLEX 1+ (Negative); URINE UROBILINOGEN 0.2 E.U./dl (0.2-1.0)
[2019-06-08 01:45] LABS: CASTS None Seen /LPF (None Seen); CRYSTALS None Seen /LPF (None Seen); MUCUS None Seen strn/LPF (None Seen); SQUAMOUS >10 Many /LPF (0-3); URINE RBC 0-2 Rare /HPF (0-2); URINE WBC-REFLEX >25 Many /HPF (0-5); WBC CLUMPS Few (None Seen)
[2019-06-08 01:46] LABS: BACTERIA-REFLEX 1-9 Few /HPF (None Seen)
[2019-06-08 05:51] LABS: ABSOLUTE EOSINOPHILS 0.1 thou/uL (0.0-0.7); ABSOLUTE LYMPHOCYTES 0.1 thou/uL (0.8-5.3); ABSOLUTE MONOCYTES 0.5 thou/uL (0.0-1.2); ABSOLUTE NEUTROPHILS 3.8 thou/uL (1.6-8.1); BASOPHILS 0.7 %; EOSINOPHILS 1.9 %; HEMATOCRIT 27.3 % (37.0-47.0); HEMOGLOBIN 9.1 gm/dL (12.0-15.0); LYMPHOCYTES 3.2 %; MCH 26.4 pg (26.0-34.0); MCHC 33.2 g/dL (28.0-37.0); MCV 79.6 fL (80.0-100.0); MONOCYTES 11.3 %; MPV 8.3 fl. (7.2-11.1); NUCLEATED RBCS 0 /100WBC; PLATELET COUNT* 144 thou/uL (150-400); POLYS 82.9 %; RBC 3.42 mil/uL (4.20-5.00); RDW-CV 19.9 % (10.5-14.5); WBC 4.6 thou/uL (4.0-11.0)
[2019-06-08 06:14] LABS: CALCIUM 8.3 mg/dL (8.5-10.1); CREATININE 1.4 mg/dL (0.6-1.3); POTASSIUM 4.3 mmol/L (3.5-5.1)
--- NOTE | 2019-06-08 07:28 | NUR ---
ASSUMED CARE AT 1920. ALERT AND ORIENTED. PLEASANT. NORCO GIVEN FOR LEFT SIDE HEAD PAIN. REDNESS AND SWELLING TO LEFT EYE AREA. COLD WASHCLOTH GIVEN. UP WITH ASSIST TO BR. IV RIGHT FOREARM WITH NS @ 100 CC/HR. SLEPT OFF AND ON. CALL LIGHT IN REACH. BED ALARM ON.
[2019-06-08 07:42] VITALS: BP 145/72
--- NOTE | 2019-06-08 12:02 | NUR ---
CM COMPLETED INITIAL ASSESSMENT TO DISCUSS D/C PLANNING. PT'S SPOUSE AND DTR AT BEDSIDE. PT LIVES W/SPOUSE. PT HAS LIMITED MOBILITY, & HAS WALKER, BUT DOESNT USE IT IN "SMALL HOUSE" D/T DEPENDENT UPON "FURNITURE TO GRAB ON TO..." PER SPOUSE. PT HAS HX W/HH, BUT HAS NO RECOLLECTION OF AGENCY. PT HAS STAYED AT [facility] IN THE PAST. PT IS INDEPENDENT W/ADLS. GOOD SUPPORT NETWORK. CM TO REMAIN AVAIL.
[2019-06-08 16:00] VITALS: BP 160/66
[2019-06-09 05:36] LABS: ABSOLUTE EOSINOPHILS 0.1 thou/uL (0.0-0.7); ABSOLUTE LYMPHOCYTES 0.1 thou/uL (0.8-5.3); ABSOLUTE MONOCYTES 0.4 thou/uL (0.0-1.2); BASOPHILS 0.6 %; EOSINOPHILS 2.5 %; HEMATOCRIT 26.7 % (37.0-47.0); LYMPHOCYTES 3.9 %; MCH 26.8 pg (26.0-34.0); MCHC 33.7 g/dL (28.0-37.0); MCV 79.5 fL (80.0-100.0); MPV 8.6 fl. (7.2-11.1); NUCLEATED RBCS 0 /100WBC; PLATELET COUNT* 133 thou/uL (150-400); RBC 3.36 mil/uL (4.20-5.00); RDW-CV 19.9 % (10.5-14.5); WBC 3.7 thou/uL (4.0-11.0)
[2019-06-09 05:42] VITALS: BP 173/76
[2019-06-09 06:05] LABS: ALBUMIN 2.9 g/dL (3.4-5.0); CALCIUM 7.9 mg/dL (8.5-10.1); CREATININE 1.4 mg/dL (0.6-1.3); TOTAL BILIRUBIN 0.2 mg/dL (<0.1-1.0); TOTAL PROTEIN 6.2 g/dL (6.4-8.2)
[2019-06-09 08:00] VITALS: BP 153/62
--- NOTE | 2019-06-09 09:26 | NUR ---
PHYSICAL THERAPY INTERVENTIONS WERE ADDED FOR A DIFFERENT PATIENT WERE REMOVED 06/09/19 ALONG WITH CHARGES. MARQUES HARTMAN, MPT
--- NOTE | 2019-06-09 12:03 | CON ---
[address] [address] CONSULTATION Name: SAMPSONRUPINDER HANNA Room: [address] IN M.R.#: [id number] Admission: 06/07/19 Attend Phys: Amol Rodriguez MD Discharge: Date of : 41 Report #: [id number] THIS REPORT FOR: //name// [facility] DATE OF SERVICE: 06/08/2019 INFECTIOUS DISEASE CONSULTATION ATTENDING PHYSICIAN: Amol Rodriguez MD REASON FOR EVALUATION: Left scalp painful inflammatory eruption suggestive of shingles. HISTORY OF PRESENT ILLNESS: Chart reviewed, patient examined. This is a 74-year-old woman with a known history of lymphoma diagnosed in 2018, felt to be follicular type. She has been undergoing chemotherapy, scheduled the fifth course coming up. [facility], had developed left-sided head pain, initially was felt to be due to perhaps changing her glasses. Had eyeglass evaluation recently last week; however, on Friday, which would have been 06/05/2019, had increasingly became severe pain associated with the left side. Subsequently, developed signs and symptoms of inflammation with redness and swelling, extended posteriorly down the neck. She notes vision has been compromised as well. She is not encephalopathic. Denies any significant swallowing difficulties. No dyspnea. No GI related complaints. She is not certain about fevers. Denies chills, shakes, sweats. Was referred from the Cancer Center for admission. She is started empirically on acyclovir parenterally. ALLERGIES: OXYBUTYNIN. CURRENT MEDICATIONS: Include enoxaparin, lisinopril, acyclovir, levothyroxine, pantoprazole, gabapentin, insulin lispro, p.r.n. analgesics and antiemetics. PAST MEDICAL HISTORY: As above described, follicular lymphoma, diabetes mellitus type 2, hypothyroidism, reflux, hypertension. SOCIAL HISTORY: Nonsmoker, no ethanol, no illicit drug use. FAMILY HISTORY: Noncontributory. REVIEW OF SYSTEMS: Otherwise, unremarkable 10-point review of systems with the exception of the above. PHYSICAL EXAMINATION: [place] [address] CONSULTATION Name: RUPINDER BRADEN Room: [address] IN [facility].#: [id number] Admission: 06/07/19 Attend Phys: Amol Rodriguez MD Discharge: Date of : 41 Report #: [id number] GENERAL: She is alert, cooperative. She is in moderate to marked distress secondary to the pain. She is frequently holding her left side of her face in particular over the periorbital area. She is lucid at this point. She appears reasonably well nourished. VITAL SIGNS: Temperature 98.8, pulse 99, respirations 17, blood pressure 145/72. SKIN: Warm. She does have a more confluent type eruption, although it does not cross the midline. There are some perhaps early lesions to suggest vesicles over the eyelid. Actually, no lesion on the tip of the nose. She really opposes me doing any sort of palpable examination due to the pain, does not open the eye. NECK: I do not appreciate any adenopathy of the neck. Neck is supple. LUNGS: Generally clear to auscultation. HEART: Regular. Borderline tachycardic. I do not appreciate murmur. ABDOMEN: Mildly distended, soft, nontender. EXTREMITIES: No cyanosis. GENITOURINARY/RECTAL: Deferred. LABORATORY DATA: Initial CBC: White count 4.9, H and H 10.5 and 32.2, platelets of 166. Electrolytes: Sodium 134, potassium 4.9, chloride 99, bicarbonate is 27, anion gap of 8, BUN and creatinine 27 and 1.6, glucose of 326. LFTs unremarkable. Albumin of 3.5, total protein 7.4. Lactic acid 1.2. CT of the head, moderate cerebral atrophy, mild patchy deep white matter changes, no acute process. Urinalysis show some pyuria, greater than 25 white cells, 1-9 bacteria. ASSESSMENT AND PLAN: Inflammatory eruption involving the left periorbital site does not cross the midline, certainly consistent with varicella zoster reactivation. Agree with parenteral acyclovir therapy. I cannot entirely exclude secondary infectious bacterial infection. We will add therapy to cover skin and soft tissue as well as likely urinary tract infection. Ophthalmology to evaluate. At this point, she is not overtly toxic. Continue to monitor expectantly. <ELECTRONICALLY SIGNED> By: Miguel Jeong MD 06/09/19 1203 1139 1337Miguel Jeong MD /nt
[2019-06-09 16:00] VITALS: BP 155/68
--- NOTE | 2019-06-09 18:53 | NUR ---
ASSUMED PT CARE AT 0730. ASSESSMENT COMPLETED CHARTED. ABLE TO MAKE NEEDS KNOWN. C/O EYE AND HEADACHE AND GAVE PRN PAIN MEDICATION NEEDED. UP WITH SBA. HAD EPISODE OF SHAKING AND SHIVERING AROUND 1830. VSS. RESTING IN BED AT THIS TIME. WILL CONTINUE TO MONITOR.
[2019-06-09 19:50] VITALS: BP 163/63
[2019-06-10 03:58] LABS: ABSOLUTE EOSINOPHILS 0.1 thou/uL (0.0-0.7); ABSOLUTE LYMPHOCYTES 0.2 thou/uL (0.8-5.3); ABSOLUTE MONOCYTES 0.5 thou/uL (0.0-1.2); ABSOLUTE NEUTROPHILS 3.4 thou/uL (1.6-8.1); BASOPHILS 0.6 %; EOSINOPHILS 2.3 %; HEMATOCRIT 26.5 % (37.0-47.0); HEMOGLOBIN 8.9 gm/dL (12.0-15.0); LYMPHOCYTES 4.4 %; MCH 26.7 pg (26.0-34.0); MCHC 33.5 g/dL (28.0-37.0); MCV 79.7 fL (80.0-100.0); MONOCYTES 11.8 %; MPV 8.5 fl. (7.2-11.1); NUCLEATED RBCS 0 /100WBC; PLATELET COUNT* 125 thou/uL (150-400); POLYS 80.9 %; RBC 3.33 mil/uL (4.20-5.00); RDW-CV 19.6 % (10.5-14.5); WBC 4.1 thou/uL (4.0-11.0)
[2019-06-10 04:17] LABS: ALBUMIN 2.9 g/dL (3.4-5.0); CREATININE 1.4 mg/dL (0.6-1.3); TOTAL BILIRUBIN 0.2 mg/dL (<0.1-1.0); TOTAL PROTEIN 6.3 g/dL (6.4-8.2)
--- NOTE | 2019-06-10 05:17 | NUR ---
PT ALERT AND ORIENTED. TEMP 99.1. VSS ON RA. MEDS GIVEN ORDERED. PAIN MEDS GIVEN THIS SHIFT. PT UP TO BSC. NO BM NOTED THIS SHIFT. TYLENOL GIVEN THIS SHIFT FOR PAIN AND TEMP. WILL REASSESS WHEN DUE. ISOLATION PRECAUTION IN PLACE. PT SLEPT WELL THIS SHIFT. CALL LIGHT WITHIN REACH. HOURLY ROUNDINGS MADE. WILL CONTINUE TO MONITOR.
[2019-06-10 08:00] VITALS: BP 144/61
[2019-06-10 16:00] VITALS: BP 140/70
--- NOTE | 2019-06-10 16:55 | NUR ---
PT A&OX4 VSS. PT UP AD DIMITRIS TO BEDSIDE COMMODE. GAIT STEADY. REDNESS/SWELLING R/T SHINGLES TO L SIDE OF FACE AND EYE AREA. PT WEARS PULL UP BRIEF FOR STRESS INCONTINENCE. PT ON ROOM AIR, SAT 96% THIS SHIFT. PT IS ACCUCHECK, INSULIN ADMINISTERED INDICATED BY PT SLIDING SCALE. PT REMAINS ON ISOLATION PRECAUTIONS R/T DX SHINGLES. IV ACYCLOVIR ADMINSTERED ORDERED. EPISODE OF TEARFULNESS, C/O EAR PAIN. PRN PAIN MEDICATION ADMINISTERED. IV TO RFA DC'D, NO LONGER PATENT. ALIZA AVILEZ FROM INFUSION INSERTED NEW IV ACCESS. PT RESTS IN ROOM WITH CALL LIGHT IN REACH. WILL CONTINUE TO MONITOR.
[2019-06-10 20:00] VITALS: BP 152/71
[2019-06-11 04:42] LABS: CALCIUM 7.8 mg/dL (8.5-10.1); CREATININE 1.3 mg/dL (0.6-1.3)
--- NOTE | 2019-06-11 06:29 | NUR ---
PT ALERT AND ORIENTED. VSS ON RA. PAIN MEDS GIVEN THIS SHIFT. PT SLEPT WELL THIS SHIFT. DISCHARGES TO LEFT EYE. LT EYE/FACE PUFFY. ISOLATION PRECAUTION IN PLACE. CALL LIGHT WITHIN REACH. HOURLY ROUNDINGS MADE. WILL CONTINUE PLAN OF CARE.
[2019-06-11 08:25] VITALS: BP 150/66
[2019-06-11 16:00] VITALS: BP 144/73
--- NOTE | 2019-06-11 17:09 | NUR ---
PT A&OX3 VSS. PT IS ACCUCHECK, SLLIDING SCALE INSULIN ADMINISTERED INDICATED. REDNESS/SWELLING PERSISTS TO L EYE/FACE R/T SHINGLES. PT REMAINS ON ISOLATION PRECAUTIONS. PT UP SBA TO BEDSIDE COMMODE. GAIT STEADY. PT IN BRIEFS FOR STRESS INCONTINENCE. IV TO LFA PATENT AND SALINE LOCKED. PT C/O ORAL DISCOMFORT AND SIMNUS PRESSURE. DR BUTTERFIELD NOTIFIED AND MEDS ORDERED. PT UP TO RECLINER THIS SHIFT. PT RESTS IN BED WITH CALL LIGHT IN REACH. WILL CONTINUE TO MONITOR.
[2019-06-11 23:22] VITALS: BP 165/63
--- NOTE | 2019-06-12 03:49 | NUR ---
PATIENT SLEPT WELL DURING THIS SHIFT. PT UP TO BSC BY HERSELF. PT WITH BLOOD SUGAR AT 2100 OF 244; HUMALOG 4 UNITS GIVEN. PT C/O LT EYE PAIN BUT SAYS IT'S BETTER. PT DENIES NEEDS AT THIS TIME. FREQUENTLY USED ITEMS AND CALL LIGHT WITHIN REACH. PT REMAINS IN ISOLATION. WILL CONTINUE TO MONITOR.
[2019-06-12 08:00] VITALS: BP 120/62
[2019-06-12 18:04] VITALS: BP 112/59
--- NOTE | 2019-06-12 18:21 | NUR ---
PT UP IN ROOM WITH STEADY GAIT. REMAINS IN ISOLATION FOR SHINGLES. PAIN WELL CONTROLLED. IVF INFUSING
[2019-06-13] VITALS: BP 92/71
[2019-06-13 06:15] LABS: HEMATOCRIT 27.1 % (37.0-47.0); HEMOGLOBIN 9.4 gm/dL (12.0-15.0); MCH 27.5 pg (26.0-34.0); MCHC 34.7 g/dL (28.0-37.0); MCV 79.3 fL (80.0-100.0); MPV 7.9 fl. (7.2-11.1); RBC 3.42 mil/uL (4.20-5.00); RDW-CV 20.1 % (10.5-14.5); WBC 5.1 thou/uL (4.0-11.0)
[2019-06-13 06:29] LABS: CALCIUM 8.5 mg/dL (8.5-10.1); CREATININE 1.5 mg/dL (0.6-1.3); MAGNESIUM 1.7 mg/dL (1.8-2.4); POTASSIUM 4.3 mmol/L (3.5-5.1)
[2019-06-13 09:45] VITALS: BP 128/54
[2019-06-13 16:00] VITALS: BP 135/58; BP 138/71; BP 148/69
--- NOTE | 2019-06-13 17:57 | NUR ---
ALERT AND ORIENTED X4. UP AD DIMITRIS TO BEDSIDE COMMODE. CONTINENT OF BOWEL AND BLADDER. IV INFILTRATED AND NEW IV STARTED. CONTINUES ON IV ANTIBIODICS. BLISTER SCABS ON LEFT SIDE OF FACE DRY AND INTACT. LEFT EYE CONTINUES TO HAVE SOME EDEMA. PO PAIN MEDICATION GIVING SOME RELIEF. CALL LIGHT WITHIN REACH.
[2019-06-13 20:20] VITALS: BP 151/74
--- NOTE | 2019-06-14 05:39 | NUR ---
PT SLEPT OFF AND ON OVERNIGHT. HYDROCODONE GIVEN PRN FOR CO L EYE AND HEAD PAIN WITH GOOD RESULT. UP WITH SBA TO BSC TO VOID AND HAVE SMALL SOFT UNFORMED BROWN BM. LFA IVF INFUSING PER PUMP, ABX GIVEN ORDERED. HS ACCUCHECK 262, INSULIN GIVEN. AM LABS. WEARS BRIEFS FOR STRESS INCONTINENCE. ABLE TO USE CALL LITE AND MAKE NEDS KNOWN. L EYE REMAINS RED, EDEMATOUS, SCABBED AREAS AROUND EYE. EYE DROPS AND OINTMENT GIVEN ORDERED. REMAINS ON ISOLATION FOR SHINGLES.
[2019-06-14 05:58] LABS: HEMATOCRIT 24.4 % (37.0-47.0); HEMOGLOBIN 8.3 gm/dL (12.0-15.0); MCH 27.2 pg (26.0-34.0); MCV 79.9 fL (80.0-100.0); MPV 8.6 fl. (7.2-11.1); RBC 3.05 mil/uL (4.20-5.00); RDW-CV 20.7 % (10.5-14.5); WBC 5.4 thou/uL (4.0-11.0)
[2019-06-14 06:21] LABS: CALCIUM 8.4 mg/dL (8.5-10.1); CREATININE 1.5 mg/dL (0.6-1.3); MAGNESIUM 1.8 mg/dL (1.8-2.4); POTASSIUM 4.9 mmol/L (3.5-5.1)
[2019-06-14 07:50] VITALS: BP 144/62
--- NOTE | 2019-06-14 09:37 | NUR ---
Nutrition: screen for LOS. No new wt since admit. Appetite noted as fair, no intake records. Albumin 2.9. Pt in isolation for shingles. Does not appear at significant nutrition risk at this time. Rec offer suppelements PRN for poor meal intake.
--- NOTE | 2019-06-14 10:39 | NUR ---
SW/CM continue to follow to assist with safe dc planning towards home with and any follow up services if needed.
--- NOTE | 2019-06-14 16:52 | NUR ---
PT A&OX4 VSS. PT ACCUCHECK, INSULIN ADMINISTERED INDICATED. PT UP AD DIMITRIS TO BEDSIDE COMMODE, GAIT STEADY. NS ORDERED AT 125ML/HOUR. PT WEARS BRIEFS FOR SRESS INCONTINENCE. PT REMAINS ON ISOLATION R/T SHINGLES. L EYE NOW OPEN AND NO VISUAL DEFICIT REPORTED. IV ACYCLOVIR DC'D BY PROVIDER. PT REMAINS ON CARB CONTROL DIET. IV TO LFA PATENT, NO REDNESS/SWELLING NOTED AT SITE. PT RESTING IN RECLINER, CALL LIGHT IN REACH. WILL CONTINUE TO MONITOR.
[2019-06-14 17:02] VITALS: BP 177/76
[2019-06-14 20:00] VITALS: BP 157/82
--- NOTE | 2019-06-15 05:18 | NUR ---
PT SLEPT FAIRLY WELL OVERNIGHT AFTER RECEIVING HS MEDS. HYDROCODONE GIVEN FOR CO L EYE PAIN. PT COMPLAINS OF NASAL CONGESTION-MESSAGE SENT TO , NO NEW ORDERS RECEIVED. LFA SL. UP WITH SBA TO BSC TO VOID, BRIEFS ON FOR STRESS INCONTINENCE. HS ACCUCHECK 275, INSULIN GIVEN ORDERED. RECEIVING PO ABX. NO LABS THIS MORNING. REHAB CONSULT. REMAINS ON ISOLATION FOR SHINGLES. ABLE TO USE CALL LITE AND MAKE NEEDS KNOWN.
[2019-06-15 08:00] VITALS: BP 122/62
[2019-06-15 13:52] LABS: URINE BILIRUBIN NEGATIVE (Negative); URINE BLOOD NEGATIVE (Negative); URINE CLARITY CLEAR; URINE COLOR YELLOW; URINE GLUCOSE-RANDOM TRACE (Negative); URINE KETONES NEGATIVE (Negative); URINE LEUKOCYTES 1+ (Negative); URINE NITRITE NEGATIVE (Negative); URINE PROTEIN NEGATIVE (Negative); URINE UROBILINOGEN 0.2 E.U./dl (0.2-1.0)
[2019-06-15 14:07] LABS: BACTERIA 1-9 Few /HPF (None Seen); CASTS None Seen /LPF (None Seen); CRYSTALS None Seen /LPF (None Seen); MUCUS None Seen strn/LPF (None Seen); SQUAMOUS 0-3 Few /LPF (0-3); URINE RBC 0-2 Rare /HPF (0-2)
[2019-06-15 14:42] VITALS: BP 122/62
[2019-06-15] MEDS ORDERED: ERYTHROMYCIN E3.5 G3 OPHTHALMIC (15:09)
[2019-06-15] MEDS ORDERED: NEURONTIN 400M400 M2 PO (15:11)
[2019-06-15] MEDS ORDERED: NORCO 5-325 TA1 EAC1 PO (15:13)
[2019-06-15] MEDS ORDERED: VALTREX1000 MG PO (15:15)
[2019-06-15] MEDS ORDERED: MINOCYCLINE HC100 M2 PO (15:15)
[2019-06-15] MEDS ORDERED: PRED FORTE 1% EY5 M1 LT. EYE (15:50)
[2019-06-15 15:56] VITALS: BP 122/62
[2019-06-15 16:25] VITALS: BP 147/71
[2019-06-15 16:41] VITALS: BP 122/62
--- NOTE | 2019-06-15 16:42 | NUR ---
3165 PATIENT AWAKE IN ROOM WITH AT BEDSIDE. ALL SAFETY MEASURES MAITNAINED. DISCHARGE PAPERWORK AND PRESCRIPTINS REVIEWED WITH PATIENT AND SPOUSE. PATIENT AND SPOUSE DENY FURTHER NEEDS AND QUESTIONS AT THIS TIME. IV REMOVED. CONFIRMED WITH DR. PIERRE TO CALL IN PREDNISOLONE EYE DROP PRESCRIPTION TO PATIENT'S PREFERRED PHARMACY.
--- NOTE | 2019-06-21 12:03 | CON ---
[facility] [address] [place] [address] CONSULTATION Name: RUPINDER BRADEN Room: [address] IN M.R.#: [id number] Admission: 06/07/19 Attend Phys: Amol Rodriguez MD Discharge: 06/15/19 Date of : 41 Report #: [id number] THIS REPORT FOR: //name// CC: Amol Salas DATE OF SERVICE: 06/15/2019 HISTORY OF PRESENT ILLNESS: This is a 74-year-old female patient who is having numerous medical problems. Neurology consult was requested for any suggestion about the management of the patient's neuralgic pain and I will confine myself to that. The patient has numerous other issues. This patient has what looks like severe herpes zoster on the left side of the face. She was seen by flag football coach, and she also has been seen by ID. She has pain, but she said it is becoming better. She is on gabapentin moderate amount of dose about 400 mg t.i.d., and the pain is not fully relieved but is tolerable. The dose of gabapentin will be in fact higher because she does have a high creatinine and adjusted dose will be higher. She had an MRV and MRI of multiple places including the brain on 06/09/2019 and that appear unremarkable. She does have underlying malignancy and she is being followed by oncologist in that regard. REVIEW OF SYSTEMS: A 14-point review of systems was carried out and she has an underlying malignancy. 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 She is being followed by multiple consultants including ID, ophthalmology, renal, etc. A 14-point review of systems otherwise was mostly positive for numerous other problems, which is being addressed by other network security consultant. PAST MEDICAL HISTORY: Negative for any pain. FAMILY HISTORY: Negative for any early age stroke. PHYSICAL EXAMINATION: NEUROLOGIC: The patient's examination indicates she is alert. She is responsive. She is able to follow simple commands. She says she cannot see very well with the left eye and is pretty blurry and that is being addressed by Ophthalmology, but pain is not too bad. Her mentation looks preserved. She moves both sides of the face. Rest of the neurological examination appeared noncontributory. There is no meningeal sign in this patient. LUNGS: No respiratory difficulty. CARDIAC: Unremarkable. VITAL SIGNS: Blood pressure is 157/82, respirations 18, pulse is 108, and temperature [place] 99.3[place] [id number] CONSULTATION Name: RUPINDER BRADEN Room: [address]#: [id number] Admission: 06/07/19 Attend Phys: Amol Rodriguez MD Discharge: 06/15/19 Date of : 41 Report #: [id number] LABORATORY DATA: White count was 3.7 but is better now. Her platelet is down at 146. She did have imaging studies of the brain as described above. IMPRESSION AND PLAN: As far as neuralgia is concerned for which a consultation was requested, I will suggest continuing gabapentin at the present dose because she is comfortable and indicated that the pain is tolerable. Tegretol can be tried, but is rarely tried these days because of its potential side effects and that too if everything fails. I discussed that with Dr. San and admitting physicians. If she continued to do well with the pain and it continued to progressively improve, then I do not think much need to be done on about the pain, but please call if Neurology followup is needed. She has multiple other problems, which I did not address and I talked to her in that regard and I will defer the evaluation and management to you and multiple other consultants she is being followed with. <ELECTRONICALLY SIGNED> By: Scott Salgado MD 06/21/19 1203 1019 [id number] Salgado MD /nt
== END 2019-06-15 16:30 | disposition home or self-care (01) | DRG 124 ==
LOC: M.ERS 09:26 → M.3W 11:39 → M.TBA-ER 11:39 → M.3W 12:45
PROVIDERS: Family Medicine; Internal Medicine Nephrology; Personal Emergency Response Attendant; ADMIT Internal Medicine
DX: H00.035 Abscess of left lower eyelid (principal); R65.11 Systemic inflammatory response syndrome (SIRS) of non-infectious origin with acute organ dysfunction; D61.810 Antineoplastic chemotherapy induced pancytopenia; B02.39 Other herpes zoster eye disease; N17.9 Acute kidney failure, unspecified; E87.1 Hypo-osmolality and hyponatremia; C82.80 Other types of follicular lymphoma, unspecified site; E44.0 Moderate protein-calorie malnutrition; H05.012 Cellulitis of left orbit; K59.00 Constipation, unspecified; E03.9 Hypothyroidism, unspecified; K21.9 Gastro-esophageal reflux disease without esophagitis; D89.9 Disorder involving the immune mechanism, unspecified; M19.90 Unspecified osteoarthritis, unspecified site; E11.22 Type 2 diabetes mellitus with diabetic chronic kidney disease; H53.142 Visual discomfort, left eye; E11.65 Type 2 diabetes mellitus with hyperglycemia; R59.9 Enlarged lymph nodes, unspecified; N18.3 Chronic kidney disease, stage 3 (moderate); I12.9 Hypertensive chronic kidney disease with stage 1 through stage 4 chronic kidney disease, or unspecified chronic kidney disease; Z90.49 Acquired absence of other specified parts of digestive tract; Z88.8 Allergy status to other drugs, medicaments and biological substances; Z80.0 Family history of malignant neoplasm of digestive organs; Z90.710 Acquired absence of both cervix and uterus; Z79.4 Long term (current) use of insulin; Z79.899 Other long term (current) drug therapy; Z68.34 Body mass index [BMI] 34.0-34.9, adult

== ENCOUNTER 2019-07-12 19:40 | Inpatient (IN) | payer OTHER, SELFPAY ==
[~2019-07-12] VITALS: Ht 157.5 cm; Wt 87.5 kg
[~2019-07-12 19:40] MED LIST changes: +ERYTHROMYCIN E3.5 G3 OPHTHALMIC; +MINOCYCLINE HC100 M2 PO; +NEURONTIN 400M400 M2 PO; +PRED FORTE 1% EY5 M1 LT. EYE; +VALTREX1000 MG PO
[2019-07-12 19:50] VITALS: BP 190/78
[2019-07-12 20:48] LABS: HEMATOCRIT 30.7 % (37.0-47.0); HEMOGLOBIN 10.2 gm/dL (12.0-15.0); MCH 28.1 pg (26.0-34.0); MCHC 33.2 g/dL (28.0-37.0); MCV 84.5 fL (80.0-100.0); MPV 8.4 fl. (7.2-11.1); NUCLEATED RBCS 0 /100WBC; PLATELET COUNT* 201 thou/uL (150-400); RBC 3.64 mil/uL (4.20-5.00); RDW-CV 24.8 % (10.5-14.5); WBC 8.9 thou/uL (4.0-11.0)
[2019-07-12 21:00] LABS: CREATININE 1.4 mg/dL (0.6-1.3); POTASSIUM 4.5 mmol/L (3.5-5.1)
[2019-07-12 21:05] LABS: ALBUMIN 3.4 g/dL (3.4-5.0); TOTAL BILIRUBIN 0.3 mg/dL (<0.1-1.0); TOTAL PROTEIN 7.3 g/dL (6.4-8.2)
[2019-07-12 21:47] LABS: ABSOLUTE BASOPHILS 0.1 thou/uL (0.0-0.2); ABSOLUTE EOSINOPHILS 0.3 thou/uL (0.0-0.7); ABSOLUTE MONOCYTES 0.4 thou/uL (0.0-1.2); ANISOCYTOSIS 2+; ATYPICAL LYMPHS 1 %; PLATELET ESTIMATE ADEQUATE
[2019-07-12 21:52] LABS: OVALOCYTES Occasional
[2019-07-12 21:56] LABS: URINE BILIRUBIN NEGATIVE (Negative); URINE BLOOD TRACE (Negative); URINE CLARITY CLEAR; URINE COLOR STRAW; URINE GLUCOSE-RANDOM 1+ (Negative); URINE KETONES NEGATIVE (Negative); URINE LEUKOCYTES-REFLEX 1+ (Negative); URINE NITRITE-REFLEX NEGATIVE (Negative); URINE PROTEIN NEGATIVE (Negative); URINE SPECIFIC GRAVITY 1.015 (1.005-1.030); URINE UROBILINOGEN 0.2 E.U./dl (0.2-1.0)
[2019-07-12 22:01] LABS: ABSOLUTE LYMPHOCYTES 0.1 thou/uL (0.8-5.3)
[2019-07-12 22:23] LABS: SQUAMOUS >10 Many /LPF (0-3)
[2019-07-12 22:24] LABS: BACTERIA-REFLEX 1-9 Few /HPF (None Seen); CASTS None Seen /LPF (None Seen); URINE RBC 0-2 Rare /HPF (0-2); URINE WBC-REFLEX 6-15 Few /HPF (0-5)
[2019-07-12 22:25] LABS: CRYSTALS None Seen /LPF (None Seen)
[2019-07-13] VITALS (7 sets, daily range): BP systolic 111–184; BP diastolic 56–79
--- NOTE | 2019-07-13 04:53 | NUR ---
PT ALERT ORIENTED. ADMIT TO 209 AT 0115. ON RA. PT STATES HX OF SHINGLES. ISOLATION CART ORDERED. TELEMETRY SHOWS SR. PT HAS PAIN 10/10 WITH SHINGLES OVER L FACE AND L EYE. EYE QTT AND EYE ANTIBIOTIC OINT. NOT GIVEN BEFORE PT CAME IN. ORDER OBTAINED FOR THAT AND VALTREX, GABAPENTIN, VALTREX WAS TAKEN JUST PRIOR TO HER ARRIVAL IN ED. ORDER ALSO OBTAINED FOR HYDROCODONE AND TRAMADOL. PT HAS BEEN STAGERING PAIN MEDICATIONS AT HOME. MORPHINE IV GIVEN ONCE AND HYDROCODONE GIVEN ONCE. PT RESTING QUIETLY. IVF NS AT 100MLS/HR. WCTM.
--- NOTE | 2019-07-13 07:15 | NUR ---
CAN OF SHIFT, BEDSIDE REPORT GIVEN PATIENT SEEN IN BED ASLEEP ASSUMED PATIENT CARE
--- NOTE | 2019-07-13 11:40 | EKG ---
[place] [address] ELECTROCARDIOGRAM REPORT Name: RUPINDER BRADEN Room: [address] ADM IN M.R.#: [id number] Admission: 07/12/19 Attend Phys: Amol Rodriguez, Discharge: Date of : 41 Date of Service: 07/12/191946 Report #: [id number] THIS REPORT FOR: //name// [facility] ED Test Date: 2019-07-12 Test Time: 19:47:30 Pat Name: RUPINDER BRADEN Department: Room: [facility] Gender: F Purchase Request Editor: ROYA : 1945 Requested By: Kavitha Ahn Order Number: [id number] MD: Claude Joyce Measurements Intervals [place] Rate: 87 P: 52 TX: 179 QRS: -32 QRSD: 99 T: 48 QT: 357 QTc: 430 Interpretive Statements Sinus rhythm Left ventricular hypertrophy Anterior Q waves, possibly due to LVH Compared to ECG 03/22/2019 15:57:19 No significant changes Electronically Signed On 07-13-2019 11:39:51 METAL EXPEDITER by Claude Joyce [email or web address] <ELECTRONICALLY SIGNED> By: Claude Joyce MD, [facility] 07/13/19 1139 46 46 Claude Joyce MD, [facility] /EPI
--- NOTE | 2019-07-13 14:49 | NUR ---
Pt is A&O. Resides at home with her . Independent. completes IADLs. Pt has a walker and wc that she can use if needed. Hx of [facility]. Hx of [facility]. Goal is home at [place]. Following.
[2019-07-14 00:22] VITALS: BP 131/70
--- NOTE | 2019-07-14 04:50 | NUR ---
PT HAD C/O TO HEAD X1 THIS SHIFT. TREATED WITH PRN PAIN MEDICATION WITH FULL RELIEF. PT STATED NO OTHER CONCERNS AT THIS TIME. HOURLY ROUNDING FOR SAFETY, CURRENTLY ASLEEP IN BED WITH BED ALARM ON AND CALL LIGHT WITHIN REACH.
[2019-07-14 04:55] VITALS: BP 130/75
[2019-07-14 04:57] VITALS: BP 126/66
--- NOTE | 2019-07-14 05:18 | NUR ---
PT HAD SHORT RUN OF VTACH AT 0453. STRIP IN CHART FOR REFERENCE.
[2019-07-14 06:43] LABS: HEMATOCRIT 25.8 % (37.0-47.0); HEMOGLOBIN 8.6 gm/dL (12.0-15.0); MCH 28.3 pg (26.0-34.0); MCHC 33.5 g/dL (28.0-37.0); MCV 84.3 fL (80.0-100.0); MPV 8.1 fl. (7.2-11.1); RBC 3.06 mil/uL (4.20-5.00); RDW-CV 24.2 % (10.5-14.5); WBC 6.8 thou/uL (4.0-11.0)
[2019-07-14 07:00] LABS: CALCIUM 8.1 mg/dL (8.5-10.1); CREATININE 1.6 mg/dL (0.6-1.3); MAGNESIUM 1.4 mg/dL (1.8-2.4); POTASSIUM 5.1 mmol/L (3.5-5.1); TOTAL BILIRUBIN 0.3 mg/dL (<0.1-1.0); TOTAL PROTEIN 6.4 g/dL (6.4-8.2)
--- NOTE | 2019-07-14 07:20 | NUR ---
CHANGE OF SHIFT, BEDSIDE REPORT GIVEN PATIENT SEEN AT BEDSIDE, IN BED AND RESTING ASSUMED PATIENT CARE
[2019-07-14 08:00] VITALS: BP 151/73
[2019-07-14 11:43] VITALS: BP 124/54
[2019-07-14 20:00] VITALS: BP 151/72
[2019-07-15] VITALS: BP 123/65
--- NOTE | 2019-07-15 05:47 | NUR ---
PT HAS HAD INCREASED DIZZINESS WITH TRANSFERS THIS SHIFT. REQUIRING ASSIST X1 WITH TRANSERS AND AMBULATION. PAIN AT A 10/10 TO LEFT EYE REQUIRING PRN PAIN MEDICATION. SMALL BOWEL MOVEMENT THIS AM. CURRENTLY IN BED ASLEEP WITH BED ALARM ON AND CALL LIGHT WITHIN REACH.
[2019-07-15 08:00] VITALS: BP 156/68
[2019-07-15 10:46] LABS: CALCIUM 8.6 mg/dL (8.5-10.1); CREATININE 1.3 mg/dL (0.6-1.3)
[2019-07-15 12:00] VITALS: BP 132/65; BP 142/69; BP 154/76
--- NOTE | 2019-07-15 14:26 | EKG ---
[place] [address] ELECTROCARDIOGRAM REPORT Name: RUPINDER BRADEN Room: [address] ADM IN M.R.#: [id number] Admission: 07/12/19 Attend Phys: Amol Rodriguez, Discharge: Date of : 41 Date of Service: 07/15/19 1305 Report #: [id number] THIS REPORT FOR: //name// [facility] Test Date: 2019-07-15 Test Time: 13:05:20 Pat Name: RUPINDER BRADEN Department: Room: [address] Gender: F Business Development Consultant: : 1945 Requested By: Mara Gilbert Order Number: [id number] Reading MD: Nelson Galloway Measurements Intervals [place] Rate: 106 P: 47 NE: 175 QRS: -43 QRSD: 122 T: 105 QT: 347 QTc: 461 Interpretive Statements Sinus tachycardia Nonspecific IVCD with LAD LVH with secondary repolarization abnormality Anterior Q waves, possibly due to LVH Compared to ECG 07/12/2019 19:47:30 Intraventricular conduction delay now present Early repolarization now present Sinus rhythm no longer present Electronically Signed On 07-15-2019 14:25:37 BAR ASSISTANT by Nelson Galloway [email or web address] <ELECTRONICALLY SIGNED> By: Nelson Galloway MD, FACC 07/15/19 1425 1305 1305 Nelson Galloway MD, [facility] /EPI
--- NOTE | 2019-07-15 19:00 | NUR ---
ASSUMED PT CARE AT 0730. ASSESSMENT COMPLETED CHARTED. UNABLE TO MAKE NEEDS KNOWN. UP WITH SBA. RESTING IN BED ALL DAY. VERY LATHARGIC, UNABLE TO FOLLOW DIRECTIONS, LEFT RIB PAIN AND GAVE PRN PAIN MEDICATION. VSS. TEMP STARTED AROUND 1600 [address] KEPT RISING. NOTIFIED DR OF LETHARGY, TACHYCARDIA, TEMP. NEW ORDERS RECIEVED. IV FLUIDS RUNNING PER EMAR. UP TO BSC WITH 2. TACHYCARDIA AND TEMP BETTER AFTER INTERVENTIONS. PT WAS CONFUSED ABOUT WHERE SHE WAS WELL. WILL CONTINUE TO MONITOR.
[2019-07-15 20:00] VITALS: BP 140/60
[2019-07-15 23:10] LABS: URINE BILIRUBIN NEGATIVE (Negative); URINE BLOOD 1+ (Negative); URINE CLARITY CLEAR; URINE COLOR YELLOW; URINE GLUCOSE-RANDOM 2+ (Negative); URINE KETONES NEGATIVE (Negative); URINE LEUKOCYTES-REFLEX TRACE (Negative); URINE NITRITE-REFLEX NEGATIVE (Negative); URINE PROTEIN TRACE (Negative); URINE SPECIFIC GRAVITY 1.015 (1.005-1.030); URINE UROBILINOGEN 0.2 E.U./dl (0.2-1.0)
[2019-07-15 23:24] LABS: BACTERIA-REFLEX >30 Many /HPF (None Seen); SQUAMOUS 0-3 Few /LPF (0-3); URINE WBC-REFLEX >25 Many /HPF (0-5); WBC CLUMPS Moderate (None Seen)
[2019-07-15 23:25] LABS: CASTS None Seen /LPF (None Seen); CRYSTALS None Seen /LPF (None Seen); MUCUS 0-3 Light strn/LPF (None Seen)
[2019-07-16] VITALS (7 sets, daily range): BP systolic 126–167; BP diastolic 59–76
[2019-07-16 04:41] LABS: HEMATOCRIT 25.7 % (37.0-47.0); MCHC 33.3 g/dL (28.0-37.0); NUCLEATED RBCS 0 /100WBC; WBC 13.4 thou/uL (4.0-11.0)
[2019-07-16 04:43] LABS: ABSOLUTE BASOPHILS 0.1 thou/uL (0.0-0.2); ABSOLUTE EOSINOPHILS 0.1 thou/uL (0.0-0.7); ABSOLUTE LYMPHOCYTES 0.1 thou/uL (0.8-5.3); ABSOLUTE MONOCYTES 0.6 thou/uL (0.0-1.2); ABSOLUTE NEUTROPHILS 12.5 thou/uL (1.6-8.1); BASOPHILS 0.4 %; EOSINOPHILS 0.7 %; HEMOGLOBIN 8.6 gm/dL (12.0-15.0); LYMPHOCYTES 0.9 %; MONOCYTES 4.3 %; MPV 8.2 fl. (7.2-11.1); PLATELET COUNT* 154 thou/uL (150-400); POLYS 93.7 %; RBC 3.06 mil/uL (4.20-5.00); RDW-CV 24.3 % (10.5-14.5)
--- NOTE | 2019-07-16 04:55 | NUR ---
PT CONDITION HAS DECREASED FROM PROIR HS SHIFT. NOTED HR INCREASED INTO 120'S, O2 SAT DROPPED INTO THE 80'S, PT PLACED ON 2L NC. PT IS CONFUSED WITH HER QUESTIONING AND IMPULISIVE BEHAVIORS OF RAISING BED UP AND TRYING TO GET OUT OF BED WITH OUT HELP. PT HAD NOTED FEVER OF 100.5. NEW IV PLACE TO LEFT FA. PT IS CURRENTLY ASLEEP WITH BED ALARM ON AND CALL LIGHT WITHIN REACH.
[2019-07-16 05:06] LABS: ALBUMIN 2.8 g/dL (3.4-5.0); CREATININE 1.3 mg/dL (0.6-1.3); MAGNESIUM 1.3 mg/dL (1.8-2.4); POTASSIUM 4.4 mmol/L (3.5-5.1); TOTAL BILIRUBIN 0.5 mg/dL (<0.1-1.0); TOTAL PROTEIN 6.2 g/dL (6.4-8.2)
--- NOTE | 2019-07-16 11:38 | EKG ---
[place] [address] ELECTROCARDIOGRAM REPORT Name: RUPINDER BRADEN Room: [address] ADM IN M.R.#: [id number] Admission: 07/12/19 Attend Phys: Amol Rodriguez, Discharge: Date of : 41 Date of Service: 07/15/192206 Report #: [id number] THIS REPORT FOR: //name// [facility] Test Date: 2019-07-15 Test Time: 22:07:20 Pat Name: RUPINDER BRADEN Department: Room: [address] Gender: F Accordion Maker: TR : 1945 Requested By: Amol Rodriguez Order Number: [id number] Reading MD: Claude Joyce Measurements Intervals [place] Rate: 116 P: 51 UT: 176 QRS: -33 QRSD: 99 T: 19 QT: 313 QTc: 435 Interpretive Statements Sinus tachycardia Paired ventricular premature complexes Left axis deviation Compared to ECG 07/15/2019 13:05:20 Ventricular premature complex(es) now present Intraventricular conduction delay no longer present Left ventricular hypertrophy no longer present Early repolarization no longer present Q waves no longer present Electronically Signed On 07-16-2019 11:37:43 BIG DATA ADMIN by Claude Joyce [email or web address] <ELECTRONICALLY SIGNED> By: Claude Joyce MD, [facility] 07/16/19 1137 06 06 Claude Joyce MD, [facility] /EPI
--- NOTE | 2019-07-16 19:00 | NUR ---
ASSUMED PT CARE AT 0730. ASSESSMENT COMPLETED CHARTED. ABLE TO MAKE NEEDS KNOWN. UP TO BSC WITH 1. PT WITH BRIEFS DUE TO STESS INCONTINENCE. PT SLEEPING ON AND OFF THROUGHOUT THE DAY. IV ABT STARTED PER EMAR. NO C/O PAIN OR DISCOMFORT. AT BEDSIDE MOST OF THE DAY. PT MORE ALERT AND ORIENTED THAN YESTERDAY. WILL CONTINUE TO MONITOR.
[2019-07-17 00:30] VITALS: BP 145/63
[2019-07-17 04:07] VITALS: BP 141/62
[2019-07-17 05:13] LABS: HEMOGLOBIN 7.8 gm/dL (12.0-15.0); MCH 28.5 pg (26.0-34.0); MCHC 33.9 g/dL (28.0-37.0); MCV 84.2 fL (80.0-100.0); MPV 8.4 fl. (7.2-11.1); NUCLEATED RBCS 0 /100WBC; PLATELET COUNT* 152 thou/uL (150-400); RBC 2.73 mil/uL (4.20-5.00); RDW-CV 25.2 % (10.5-14.5); WBC 12.1 thou/uL (4.0-11.0)
[2019-07-17 05:27] LABS: ALBUMIN 2.5 g/dL (3.4-5.0); CALCIUM 8.1 mg/dL (8.5-10.1); CREATININE 1.2 mg/dL (0.6-1.3); POTASSIUM 4.2 mmol/L (3.5-5.1); TOTAL BILIRUBIN 0.4 mg/dL (<0.1-1.0)
[2019-07-17 05:37] LABS: PREALBUMIN 15.4 mg/dL (18.0-35.7)
[2019-07-17 06:10] LABS: ABSOLUTE EOSINOPHILS 0.2 thou/uL (0.0-0.7); ABSOLUTE LYMPHOCYTES 0.1 thou/uL (0.8-5.3); ABSOLUTE MONOCYTES 0.8 thou/uL (0.0-1.2); ABSOLUTE NEUTROPHILS 10.9 thou/uL (1.6-8.1); ANISOCYTOSIS 1+; OVALOCYTES Occasional; PLATELET ESTIMATE ADEQUATE; POIKILOCYTOSIS 1+
[2019-07-17 08:00] VITALS: BP 133/58
--- NOTE | 2019-07-17 08:10 | NUR ---
ASSUMED PATIENT CARE AT 1900. ASSESSMENT COMPLETED CHARTED. PATIENT IS ST WITH A BBB ON THE MONITOR. HOURLY ROUNDING IN PLACE FOR PATIENT SAFETY. CLWR.
--- NOTE | 2019-07-17 09:54 | CON ---
[address] [address] CONSULTATION Name: RUPINDER BRADEN Room: [address] ADM IN M.R.#: [id number] Admission: 07/12/19 Attend Phys: Amol Rodriguez MD Discharge: Date of : 41 Report #: [id number] THIS REPORT FOR: //name// cc: Michelle Slaas Maggie M. DO ~ THIS REPORT FOR: //name// CC: Amol Salas DATE OF SERVICE: 07/16/2019 INFECTIOUS DISEASE CONSULTATION ATTENDING PHYSICIAN: Amol Rodriguez MD REASON FOR EVALUATION: Nosocomial fevers, complicated urinary tract infection. HISTORY OF PRESENT ILLNESS: Chart reviewed and patient examined. 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 She has been having ongoing issues with the pain. She did followup with Ophthalmology who thought it was improved. She presented with right-sided chest pain and during the course of the evaluation had developed some fevers. Urinalysis initially showed some pyuria. Urine culture with growth of Enterococcus faecalis that was susceptible in vitro to Macrodantin. She does have some ongoing encephalopathy attempt to 100.5 overnight. She is fairly lethargic as well as admits some abdominal-related complaints. She is on room air without supplemental oxygen. ALLERGIES: OXYBUTYNIN. CURRENT MEDICATIONS: Include gabapentin, enoxaparin, labetalol as needed, nitrofurantoin, insulin lispro, duloxetine, valacyclovir, morphine sulfate, tramadol, prednisolone ophthalmic. PAST MEDICAL HISTORY: As described above. Does have diabetes mellitus type 2, hypothyroidism, reflux, hypertension, previous cholecystectomy, appendectomy, history of lymphoma. SOCIAL HISTORY: Available in chart. FAMILY HISTORY: Available in chart. REVIEW OF SYSTEMS: As above. Did have some constipation/[place] [address] CONSULTATION Name: RUPINDER BRADEN Room: [address] IN [facility]#: [id number] Admission: 07/12/19 Attend Phys: Amol Rodriguez MD Discharge: Date of : 41 Report #: [id number] large bowel movement recently with some mild dyspnea. PHYSICAL EXAMINATION: GENERAL: She is lethargic. She opens eyes briefly. She appears to be in moderate distress. She is undernourished, somewhat chronically ill appearing. VITAL SIGNS: T-max 100.5, more recently 99.5, pulse 132, respirations 20, blood pressure 147/75. SKIN: Warm, dry, no rashes. HEENT: Some mild residual inflammatory changes noted around the left periorbital site. It is palpably tender. NECK: Supple. LUNGS: Diminished breath sounds. HEART: Tachycardic, regular. I do not appreciate any murmur. ABDOMEN: Mildly tender across the lower site. There are no overt peritoneal signs. GENITOURINARY AND RECTAL: Deferred. LABORATORY DATA: Blood cultures sterile thus far. Most recent electrolytes; sodium 131, potassium 4.4, chloride 100, bicarbonate is 21, anion gap of 10, BUN and creatinine 17 and 1.3, glucose of 130. Albumin of 2.8, total protein is 6.2. LFTs unremarkable. CBC: White count of 13.4, H and H 8.6 and 25.7, platelets of 154. Most recent urinalysis showed moderate WBC clumps, greater than 25 white cells, greater than 30 bacteria, no crystals. Lactic acid of 1.1. Urine culture now with growth of Enterococcus faecalis and 25-50,000 colony forming units per mL. ASSESSMENT AND PLAN: Nosocomial fevers, certainly has laboratory evidence of complicated urinary tract infection in spite of being on therapy. This may be an intermittent issue with her upper respiratory tract infection, perhaps viral. Influenza antigen is pending. Certainly if it is positive, we will initiate on oseltamivir. This included antibacterials at this point. Initial chest x-ray was on the . I think it is reasonable to repeat that given the change in status. Certainly risk for aspiration given the encephalopathy it is apparent at this point. Discussed with the patient's spouse. <ELECTRONICALLY SIGNED> By: Miguel Jeong MD 07/17/19 0954 1029 [id number] Jeong MD /nt
[2019-07-17 12:00] VITALS: BP 116/57
--- NOTE | 2019-07-17 19:00 | NUR ---
ASSUMED PT CARE AT 0730. ASSESSMENT COMPLETED CHARTED. ABLE TO MAKE NEEDS KNOWN. UP WITH SBA TO BSC, ABLE TO FOLLOW DIRECTIONS BETTER TODAY. STATED SHE DOESNT REMEMBER THE LAST 2 DAYS. C/O HEADACHE SOME OF THE DAY AND GAVE PRN PAIN MEDS PER EMAR. CALL LIGHT WITHIN REACH. WILL CONTINUE TO MONITOR.
[2019-07-17 20:00] VITALS: BP 140/64
[2019-07-18 00:30] VITALS: BP 128/68
[2019-07-18 04:30] VITALS: BP 123/53
[2019-07-18 04:45] LABS: ABSOLUTE EOSINOPHILS 0.3 thou/uL (0.0-0.7); ABSOLUTE LYMPHOCYTES 0.1 thou/uL (0.8-5.3); ABSOLUTE MONOCYTES 0.7 thou/uL (0.0-1.2); ABSOLUTE NEUTROPHILS 9.4 thou/uL (1.6-8.1); BASOPHILS 0.5 %; EOSINOPHILS 3.2 %; HEMATOCRIT 24.3 % (37.0-47.0); HEMOGLOBIN 8.2 gm/dL (12.0-15.0); LYMPHOCYTES 0.9 %; MCH 28.5 pg (26.0-34.0); MCHC 33.7 g/dL (28.0-37.0); MCV 84.5 fL (80.0-100.0); MONOCYTES 6.6 %; MPV 8.4 fl. (7.2-11.1); NUCLEATED RBCS 0 /100WBC; PLATELET COUNT* 182 thou/uL (150-400); POLYS 88.8 %; RBC 2.88 mil/uL (4.20-5.00); WBC 10.6 thou/uL (4.0-11.0)
[2019-07-18 05:05] LABS: PREALBUMIN 15.2 mg/dL (18.0-35.7)
[2019-07-18 05:25] LABS: ALBUMIN 2.6 g/dL (3.4-5.0); CALCIUM 8.4 mg/dL (8.5-10.1); CREATININE 1.3 mg/dL (0.6-1.3); POTASSIUM 3.8 mmol/L (3.5-5.1); TOTAL BILIRUBIN 0.3 mg/dL (<0.1-1.0); TOTAL PROTEIN 6.3 g/dL (6.4-8.2)
[2019-07-18 08:00] VITALS: BP 143/78
--- NOTE | 2019-07-18 08:11 | NUR ---
ASSUMED PATIENT CARE AT 1900. ASSESSMENT COMPLETED CHARTED. PATIENT IS ST WITH A BBB. HOURLY ROUNDING IN PLACE FOR PATIENT SAFETY. CLWR.
[2019-07-18 12:00] VITALS: BP 129/57
[2019-07-18 16:00] VITALS: BP 135/65
--- NOTE | 2019-07-18 19:00 | NUR ---
ASSUMED PT CARE AT 0730. ASSESSMENT COMPLETED CHARTED. ABLE TO MAKE NEEDS KNOWN. UP WITH SBA. C/O HEADACHE AND GAVE PRN PAIN MEDICATION PER EMAR. RESTING IN RECLINER MOST OF THE DAY. CALL LIGHT WITHIN REACH. WILL CONTINUE TO MONITOR.
[2019-07-18 20:00] VITALS: BP 136/64
[2019-07-19 00:23] VITALS: BP 148/70
[2019-07-19 04:00] VITALS: BP 143/77
[2019-07-19 08:00] VITALS: BP 142/73
--- NOTE | 2019-07-19 08:30 | NUR ---
ASSUMED PATIENT CARE AT 1900. ASSESSMENT COMPLETED CHARTED. PATIENT IS ST WITH A BBB ON THE MONITOR. HOURLY ROUNDING IN PLACE FOR PATIENT SAFETY. CLWR.
[2019-07-19 10:40] VITALS: BP 143/77
[2019-07-19] MEDS ORDERED: CYMBALTA30 MG PO (11:48)
[2019-07-19] MEDS ORDERED: NORCO 5-325 TA1 EAC1 PO (11:48)
[2019-07-19] MEDS ORDERED: ARTHRITIS PAIN57 GM TOP (11:48)
[2019-07-19] MEDS ORDERED: TRAMADOL 50 MG50 MG PO (11:48)
[2019-07-19] MEDS ORDERED: NEURONTIN600 MG PO (11:48)
[2019-07-19] MEDS ORDERED: AMOX TR-K CLV1 EAC3 PO (11:48)
[2019-07-19 11:55] VITALS: BP 143/77
--- NOTE | 2019-07-19 11:57 | NUR ---
Pt discharging to home today. HH orders faxed to [facility] per Pt's request. in room and will transport
[2019-07-19 12:14] VITALS: BP 146/65
--- NOTE | 2019-07-19 16:20 | NUR ---
ASSUMED PT CARE AT 0730. ASSESSMENT COMPLETED CHARTED. ABLE TO MAKE NEEDS KNOWN. C/O HEADACHE AND GAVE PRN PAIN PER EMAR. UP WITH SBA TO BSC. RESTING IN BED AT TIME OF DISCHARGE. DISCHARGE APPROVED. DISCHARGE PAPERWORK, SCRIPTS, AND MED INFO TO PT. IV AND HEART MONITOR REMOVED. PT BROUGHT DOWN TO 'S CAR AT AROUND 1615 BY VOLUNTEERS. NO COMMENTS, QUESTIONS, OR CONCERNS NOTED.
== END 2019-07-19 16:17 | disposition home health service (06) | DRG 73 ==
LOC: M.ERS 19:40 → M.TBA-ER 23:50 → M.2W 23:50
PROVIDERS: Emergency Medicine; Family Medicine; ADMIT Internal Medicine
DX: B02.29 Other postherpetic nervous system involvement (principal); N17.0 Acute kidney failure with tubular necrosis; J96.01 Acute respiratory failure with hypoxia; G93.41 Metabolic encephalopathy; C85.90 Non-Hodgkin lymphoma, unspecified, unspecified site; E44.0 Moderate protein-calorie malnutrition; N39.0 Urinary tract infection, site not specified; E03.9 Hypothyroidism, unspecified; K21.9 Gastro-esophageal reflux disease without esophagitis; Z96.1 Presence of intraocular lens; F41.9 Anxiety disorder, unspecified; N18.9 Chronic kidney disease, unspecified; I12.9 Hypertensive chronic kidney disease with stage 1 through stage 4 chronic kidney disease, or unspecified chronic kidney disease; R59.9 Enlarged lymph nodes, unspecified; Y95 Nosocomial condition; R19.09 Other intra-abdominal and pelvic swelling, mass and lump; E11.22 Type 2 diabetes mellitus with diabetic chronic kidney disease; D50.9 Iron deficiency anemia, unspecified; B95.2 Enterococcus as the cause of diseases classified elsewhere; D89.9 Disorder involving the immune mechanism, unspecified; Z80.0 Family history of malignant neoplasm of digestive organs; Z79.4 Long term (current) use of insulin; Z79.899 Other long term (current) drug therapy; Z88.8 Allergy status to other drugs, medicaments and biological substances; Z90.710 Acquired absence of both cervix and uterus; Z68.35 Body mass index [BMI] 35.0-35.9, adult

== ENCOUNTER → 2019-09-16 | Day surgery (SDC) | payer OTHER ==
[~2019-09-16] MED LIST changes: +AMOX TR-K CLV1 EAC3 PO; +ARTHRITIS PAIN57 GM TOP; +CYMBALTA30 MG PO; +LEVO-T75 MCG PO; +NEURONTIN600 MG PO
--- NOTE | ~2019-09-16 | PROC ---
[address] [address] PROCEDURE REPORT Name: RUPINDER BRADEN Room: [facility].#: [id number] Admission: 09/16/19 Attend Phys: Abhijeet Sanchez DO Discharge: Date of : 41 Report #: [id number] THIS REPORT FOR: //name// cc: Michelle Salas Maggie M. DO ~ THIS REPORT FOR: //name// For GI report, please see the Provation report in Perceptive 7 content. By: 0659Medical Records Staff [place] /KAYLYN
[2019-09-16 09:49] LABS: HEMATOCRIT 29.4 % (37.0-47.0); HEMOGLOBIN 9.7 gm/dL (12.0-15.0); MCH 27.6 pg (26.0-34.0); MCHC 33.2 g/dL (28.0-37.0); MCV 83.1 fL (80.0-100.0); MPV 8.5 fl. (7.2-11.1); RBC 3.54 mil/uL (4.20-5.00); WBC 5.8 thou/uL (4.0-11.0)
[2019-09-16 10:27] LABS: CALCIUM 9.1 mg/dL (8.5-10.1); CREATININE 1.6 mg/dL (0.6-1.3); POTASSIUM 4.5 mmol/L (3.5-5.1)
--- NOTE | 2019-09-21 14:08 | PATH ---
[address] [address] PATHOLOGY RPT PROCEDURE Name: SOPHIE HAYWOOD Room: [facility]#: [id number] Admission: 09/16/19 Date of : 41 Discharge: Report #: [id number] Path Case #: [id number] [facility] Accession Number: [id number] . 01 Material submitted: . PART A: cecum - CECAL POLYP X2 PART B: colon - PROXIMAL ASCENDING COLON POLYP. Modifiers: proximal, ascending PART C: colon - MID ASCENDING COLON POLYP X3. Modifiers: mid, ascending PART D: colon - MID TRANSVERSE COLON POLYP. Modifiers: mid, transverse PART E: rectum - RECTAL POLYP AT 10CM X1 PART F: rectum - RECTAL POLYP AT 12CM X1 . 01 Clinical history: . Abnormal PET scan . 02 Diagnosis: A. Cecal polyp x2: - Multiple fragments of tubular adenomas, negative for high-grade dysplasia. . B. Proximal ascending colon polyp: - Tubular adenoma, negative for high-grade dysplasia. . C. Mid ascending colon polyp x3: - Multiple fragments of tubular adenoma(s) and of hyperplastic polyp(s), negative for high-grade dysplasia. . D. Mid transverse colon polyp: - Tubular adenoma, negative for high-grade dysplasia. . E. Rectal polyp at 10 cm: - FRAGMENTED TUBULAR ADENOMA WITH FOCAL HIGH-GRADE DYSPLASIA. SEE COMMENT. . F. Rectal polyp at 12 cm (x1): - Tubular adenoma, negative for high-grade dysplasia. . (HARJIT:faviola; 09/20/2019) R 09/21/2019 1303 Local . 02 Comment: Specimen E reviewed with Dr. Geronimo Gonzáles who agrees with the diagnosis. Dr. Sanchez notified at aspproximately 1215 on 09/21/2019. (HARJIT:faviola; 09/20/2019) . 02 Electronically signed: . Julio Cesar Zabala MD, [place] [address] PATHOLOGY RPT PROCEDURE Name: SOPHIE HAYWOOD Room: [facility]#: [id number] Admission: 09/16/19 Date of : 41 Discharge: Report #: [id number] Path Case #: [id number] [id number] . 01 Gross description: . A. The specimen is received in formalin labeled "Sophie Haywood, cecal polyp x2" and consists of multiple fragments of yellow-gilman tissue measuring 1.3 x 0.7 x 0.3 cm in aggregate which are entirely submitted in A1. . B. The specimen is received in formalin labeled "Sophie Haywood, proximal ascending colon polyp" and consists of multiple polypoid fragments of brown-yellow tissue in aggregate measuring 1.2 x 1.1 x 0.3 cm which are entirely submitted in B1. . C. The specimen is received in formalin labeled "Sophie Haywood, mid ascending colon polyp x3" and consists of multiple fragments of pink-gilman tissue in aggregate measuring 1.7 x 0.6 x 0.3 cm which are entirely submitted in C1. . D. The specimen is received in formalin labeled "Sophie Haywood, mid transverse colon polyp" and consists of multiple fragments of yellow-gilman tissue in aggregate measuring 1.6 x 0.7 x 0.3 cm which are entirely submitted in D1. . E. The specimen is received in formalin labeled "Sophie Haywood, rectal polyp at 10 cm" and consists of multiple fragments of yellow-gilman tissue in aggregate measuring 1.7 x 1.3 x 0.3 cm in aggregate which are entirely submitted in E1. . F. The specimen is received in formalin labeled "Sophie Haywood, rectal polyp at 12 cm" and consists of a polypoid segment of friable pink tissue measuring 1.3 x 0.9 x 0.6 cm. The margin is inked. It is serially sectioned and entirely submitted in F1. ([facility]; 09/17/2019) JFQ/JFQ 09/20/2019 1025 Local . Pathologist provided ICD-10: D12.0, D12.2, D12.3, D12.8, K63.5 . 02 CPT . 361920, 417279, 438670, 185822, 496955, 704145 Specimen Comment: A courtesy copy of this report has been sent to [phone] Specimen Comment: [phone], Specimen Comment: Report sent to ,DR EWING / DR MURPHY Performed at: [address], [place], [place] [id number] MD Olman Hammond MD Phone: [phone] Performed at: 02 [facility] [address] [place] [address] PATHOLOGY RPT PROCEDURE Name: SOPHIE HAYWOOD Room: [facility].#: [id number] Admission: 09/16/19 Date of : 41 Discharge: Report #: [id number] Path Case #: [id number] [facility] [address] [place], [place], [place] [id number] MD Julio Cesar Zabala MD Phone: [phone]
== END | disposition home or self-care (01) ==
LOC: M.SUR 07:26
PROVIDERS: Internal Medicine Gastroenterology
DX: R93.3 Abnormal findings on diagnostic imaging of other parts of digestive tract (principal); R13.14 Dysphagia, pharyngoesophageal phase; D12.0 Benign neoplasm of cecum; D12.3 Benign neoplasm of transverse colon; D12.2 Benign neoplasm of ascending colon; D12.8 Benign neoplasm of rectum; E11.9 Type 2 diabetes mellitus without complications; E03.9 Hypothyroidism, unspecified; K57.30 Diverticulosis of large intestine without perforation or abscess without bleeding; K21.9 Gastro-esophageal reflux disease without esophagitis; F32.9 Major depressive disorder, single episode, unspecified; Z86.010 Personal history of colon polyps; Z88.8 Allergy status to other drugs, medicaments and biological substances; Z79.899 Other long term (current) drug therapy; Z90.49 Acquired absence of other specified parts of digestive tract; Z98.890 Other specified postprocedural states; Z85.72 Personal history of non-Hodgkin lymphomas

== ENCOUNTER → 2019-10-11 | Outpatient (CLI) | payer OTHER ==
[2019-10-11 10:09] LABS: HEMATOCRIT 29.4 % (37.0-47.0); HEMOGLOBIN 9.8 gm/dL (12.0-15.0); MCH 27.6 pg (26.0-34.0); MCHC 33.3 g/dL (28.0-37.0); MPV 8.3 fl. (7.2-11.1); NUCLEATED RBCS 0 /100WBC; PLATELET COUNT* 210 thou/uL (150-400); RBC 3.54 mil/uL (4.20-5.00); RDW-CV 19.9 % (10.5-14.5)
[2019-10-11 10:27] LABS: ALBUMIN 3.5 g/dL (3.4-5.0); CALCIUM 8.8 mg/dL (8.5-10.1); CREATININE 1.7 mg/dL (0.6-1.3); POTASSIUM 4.9 mmol/L (3.5-5.1); TOTAL BILIRUBIN 0.3 mg/dL (<0.1-1.0); TOTAL PROTEIN 7.4 g/dL (6.4-8.2)
[2019-10-11 11:39] LABS: ABSOLUTE EOSINOPHILS 0.3 thou/uL (0.0-0.7); ABSOLUTE LYMPHOCYTES 0.6 thou/uL (0.8-5.3); ABSOLUTE MONOCYTES 0.2 thou/uL (0.0-1.2); HYPOCHROMASIA 1+; PLATELET ESTIMATE ADEQUATE
[2019-10-11 11:42] LABS: MICROCYTES Occasional
[2019-10-11 11:44] LABS: ANISOCYTOSIS Occasional
== END ==
LOC: M.ULTRA 08:42
PROVIDERS: Internal Medicine Hematology & Oncology
DX: Z12.31 Encounter for screening mammogram for malignant neoplasm of breast (principal); C82.00 Follicular lymphoma grade I, unspecified site; N28.89 Other specified disorders of kidney and ureter; R16.0 Hepatomegaly, not elsewhere classified

== ENCOUNTER 2020-02-23 11:43 | Inpatient (IN) | payer OTHER ==
[~2020-02-23] VITALS: Ht 157.5 cm; Wt 95.7 kg
[2020-02-23 11:58] VITALS: BP 158/66
[2020-02-23 12:04] LABS: URINE BILIRUBIN NEGATIVE (Negative); URINE BLOOD TRACE (Negative); URINE CLARITY CLEAR; URINE COLOR YELLOW; URINE GLUCOSE-RANDOM NEGATIVE (Negative); URINE KETONES NEGATIVE (Negative); URINE NITRITE-REFLEX NEGATIVE (Negative); URINE PROTEIN NEGATIVE (Negative); URINE UROBILINOGEN 0.2 E.U./dl (0.2-1.0)
[2020-02-23 12:05] LABS: URINE LEUKOCYTES-REFLEX 2+ (Negative)
[2020-02-23 12:11] LABS: SQUAMOUS 4-10 Moderate /LPF (0-3); URINE WBC-REFLEX >25 Many /HPF (0-5); WBC CLUMPS Moderate (None Seen)
[2020-02-23 12:12] LABS: MUCUS 0-3 Light strn/LPF (None Seen); URINE RBC 0-2 Rare /HPF (0-2)
[2020-02-23 12:13] LABS: CASTS None Seen /LPF (None Seen); CRYSTALS None Seen /LPF (None Seen)
[2020-02-23 12:17] LABS: ABSOLUTE EOSINOPHILS 0.1 thou/uL (0.0-0.7); ABSOLUTE LYMPHOCYTES 0.6 thou/uL (0.8-5.3); ABSOLUTE MONOCYTES 0.6 thou/uL (0.0-1.2); ABSOLUTE NEUTROPHILS 7.5 thou/uL (1.6-8.1); BASOPHILS 0.3 %; EOSINOPHILS 1.6 %; HEMATOCRIT 24.6 % (37.0-47.0); HEMOGLOBIN 8.2 gm/dL (12.0-15.0); LYMPHOCYTES 6.6 %; MCH 25.8 pg (26.0-34.0); MCHC 33.5 g/dL (28.0-37.0); MCV 77.2 fL (80.0-100.0); MONOCYTES 6.3 %; MPV 7.9 fl. (7.2-11.1); NUCLEATED RBCS 0 /100WBC; PLATELET COUNT* 226 thou/uL (150-400); POLYS 85.2 %; RBC 3.19 mil/uL (4.20-5.00); WBC 8.8 thou/uL (4.0-11.0)
[2020-02-23 12:22] LABS: CALCIUM 8.4 mg/dL (8.5-10.1); CREATININE 2.1 mg/dL (0.6-1.3)
[2020-02-23 12:27] LABS: ALBUMIN 3.5 g/dL (3.4-5.0); TOTAL BILIRUBIN 0.2 mg/dL (<0.1-1.0); TOTAL PROTEIN 7.1 g/dL (6.4-8.2)
[2020-02-23 15:07] VITALS: BP 130/58
[2020-02-23 16:00] VITALS: BP 132/66
--- NOTE | 2020-02-23 17:13 | EKG ---
[place] [address] ELECTROCARDIOGRAM REPORT Name: RUPINDER BRADEN Room: [address] IN [facility]#: [id number] Admission: 02/23/20 Attend Phys: Amol Rodriguez, Discharge: Date of : 41 Date of Service: 02/23/20 1158 Report #: [id number] THIS REPORT FOR: //name// [facility] ED Test Date: 2020-02-23 Test Time: 11:58:47 Pat Name: RUPINDER BRADEN Department: Room: [facility] Gender: F Intensive Care Specialist: KORY : 1945 Requested By: Gurpreet Mohr Order Number: [id number] MD: Claude Joyce Measurements Intervals [place] Rate: 85 P: 38 [place]: 185 QRS: -42 QRSD: 132 T: 102 QT: 378 QTc: 450 Interpretive Statements Sinus rhythm Left bundle branch block Compared to ECG 07/15/2019 22:07:20 Left bundle-branch block now present Sinus tachycardia no longer present Ventricular premature complex(es) no longer present Electronically Signed On 02-23-2020 17:13:18 CDT by Claude Joyce [email or web address] <ELECTRONICALLY SIGNED> By: Claude Joyce MD, FAC 02/23/20 1713 1158 1158 Claude Joyce MD, FAC /EPI
[2020-02-23 20:00] VITALS: BP 148/60
[2020-02-24] VITALS (7 sets, daily range): BP systolic 121–154; BP diastolic 48–72
[2020-02-24 05:28] LABS: ABSOLUTE EOSINOPHILS 0.2 thou/uL (0.0-0.7); ABSOLUTE LYMPHOCYTES 0.4 thou/uL (0.8-5.3); ABSOLUTE MONOCYTES 0.6 thou/uL (0.0-1.2); ABSOLUTE NEUTROPHILS 5.7 thou/uL (1.6-8.1); BASOPHILS 0.4 %; EOSINOPHILS 2.3 %; HEMATOCRIT 23.4 % (37.0-47.0); HEMOGLOBIN 8.1 gm/dL (12.0-15.0); LYMPHOCYTES 5.5 %; MCH 26.3 pg (26.0-34.0); MCHC 34.4 g/dL (28.0-37.0); MCV 76.3 fL (80.0-100.0); MONOCYTES 8.6 %; MPV 8.3 fl. (7.2-11.1); NUCLEATED RBCS 0 /100WBC; PLATELET COUNT* 213 thou/uL (150-400); POLYS 83.2 %; RBC 3.07 mil/uL (4.20-5.00); RDW-CV 16.7 % (10.5-14.5); WBC 6.8 thou/uL (4.0-11.0)
[2020-02-24 05:44] LABS: CALCIUM 8.8 mg/dL (8.5-10.1); CREATININE 1.9 mg/dL (0.6-1.3); POTASSIUM 5.2 mmol/L (3.5-5.1)
--- NOTE | 2020-02-24 16:12 | EKG ---
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: : 1945 Requested By: Amol Rodriguez Order Number: [id number] Reading MD: Claude Joyce Measurements Intervals [place] Rate: 89 P: 56 [place]: 194 QRS: -35 QRSD: 105 T: 7 QT: 338 QTc: 412 Interpretive Statements Sinus rhythm Left axis deviation Abnormal R-wave progression, late transition Borderline abnrm T, anterolateral leads Baseline wander in lead(s) V2 Compared to ECG 02/23/2020 11:58:47 Left-axis deviation persists Left bundle-branch block no longer present Electronically Signed On 02-24-2020 16:12:46 CDT by Claude Joyce [email or web address] <ELECTRONICALLY SIGNED> By: Claude Joyce MD, [facility] 02/24/20 1612 47 47 Claude Joyce MD, [facility] /EPI
[2020-02-25] VITALS: BP 131/55
[2020-02-25 04:24] VITALS: BP 128/61
[2020-02-25 05:16] LABS: CALCIUM 8.7 mg/dL (8.5-10.1); CREATININE 1.7 mg/dL (0.6-1.3); POTASSIUM 5.2 mmol/L (3.5-5.1)
[2020-02-25 05:22] LABS: HEMATOCRIT 23.6 % (37.0-47.0); HEMOGLOBIN 8.1 gm/dL (12.0-15.0); MCH 26.3 pg (26.0-34.0); MCHC 34.4 g/dL (28.0-37.0); MCV 76.4 fL (80.0-100.0); MPV 8.5 fl. (7.2-11.1); NUCLEATED RBCS 0 /100WBC; PLATELET COUNT* 214 thou/uL (150-400); RBC 3.08 mil/uL (4.20-5.00); RDW-CV 16.8 % (10.5-14.5); WBC 7.1 thou/uL (4.0-11.0)
[2020-02-25 06:53] LABS: ABSOLUTE LYMPHOCYTES 0.4 thou/uL (0.8-5.3); ABSOLUTE MONOCYTES 0.4 thou/uL (0.0-1.2); ABSOLUTE NEUTROPHILS 6.3 thou/uL (1.6-8.1); OVALOCYTES 1+; PLATELET ESTIMATE ADEQUATE
[2020-02-25 06:54] LABS: ANISOCYTOSIS 1+; HYPOCHROMASIA 1+; MICROCYTES 3+
[2020-02-25 07:30] VITALS: BP 165/54
[2020-02-25] MEDS ORDERED: NEURONTIN600 MG PO (10:43)
[2020-02-25 12:00] VITALS: BP 126/56
--- NOTE | 2020-02-25 13:50 | EKG ---
[place] [address] ELECTROCARDIOGRAM REPORT Name: RUPINDER BRADEN Room: [address] IN ..#: [id number] Admission: 02/23/20 Attend Phys: Amol Rodriguez, Discharge: Date of : 41 Date of Service: 02/24/20 0948 Report #: [id number] THIS REPORT FOR: //name// [facility] Test Date: 2020-02-24 Test Time: 09:48:38 Pat Name: RUPINDER BRADEN Department: Room: [address] Gender: F Kitchen Lead: : 1945 Requested By: Amol Rodriguez Order Number: [id number] Reading MD: Claude Joyce Measurements Intervals [place] Rate: 86 P: 47 [place]: 189 QRS: -37 QRSD: 101 T: -23 QT: 360 QTc: 431 Interpretive Statements Sinus rhythm LVH with secondary repolarization abnormality consider ischemia Compared to ECG 02/23/2020 16:48:19 Left ventricular hypertrophy now present Early repolarization now present Left-axis deviation persists Electronically Signed On 02-25-2020 13:50:21 CDT by Claude Joyce [email or web address] <ELECTRONICALLY SIGNED> By: Claude Joyce MD, FACC 02/25/20 1350 0948 0948 Claude Joyce MD, FAC /EPI
[2020-02-25 16:00] VITALS: BP 112/54
[2020-02-25 23:54] VITALS: BP 110/58; BP 95/35
[2020-02-26 03:56] VITALS: BP 120/43
[2020-02-26 05:10] LABS: ABSOLUTE LYMPHOCYTES 0.4 thou/uL (0.8-5.3); ABSOLUTE MONOCYTES 0.6 thou/uL (0.0-1.2); ABSOLUTE NEUTROPHILS 4.5 thou/uL (1.6-8.1); WBC 5.8 thou/uL (4.0-11.0)
[2020-02-26 05:13] LABS: ABSOLUTE EOSINOPHILS 0.2 thou/uL (0.0-0.7); BASOPHILS 0.7 %; EOSINOPHILS 3.9 %; HEMATOCRIT 20.7 % (37.0-47.0); LYMPHOCYTES 7.4 %; MCH 26.1 pg (26.0-34.0); MONOCYTES 10.2 %; MPV 7.9 fl. (7.2-11.1); NUCLEATED RBCS 0 /100WBC; PLATELET COUNT* 200 thou/uL (150-400); POLYS 77.8 %; RBC 2.68 mil/uL (4.20-5.00)
[2020-02-26 05:32] LABS: ALBUMIN 2.9 g/dL (3.4-5.0); CALCIUM 8.1 mg/dL (8.5-10.1); CREATININE 1.7 mg/dL (0.6-1.3); MAGNESIUM 1.5 mg/dL (1.8-2.4); PHOSPHORUS* 3.6 mg/dL (2.5-4.9); POTASSIUM 4.3 mmol/L (3.5-5.1); TOTAL BILIRUBIN 0.2 mg/dL (<0.1-1.0); TOTAL PROTEIN 5.9 g/dL (6.4-8.2)
[2020-02-26 08:30] VITALS: BP 148/57
[2020-02-26 11:30] VITALS: BP 140/56
[2020-02-26 16:00] VITALS: BP 122/59
[2020-02-26 20:00] VITALS: BP 140/46
[2020-02-26 23:56] VITALS: BP 169/53
[2020-02-27 05:01] VITALS: BP 153/71
[2020-02-27 08:00] VITALS: BP 133/91
[2020-02-27 11:30] VITALS: BP 159/66
--- NOTE | 2020-02-27 11:47 | CON ---
[address] [address] CONSULTATION Name: RUPINDER BRADEN [place] Room: [address] IN M.R.#: [id number] Admission: 02/23/20 Attend Phys: Amol Rodriguez MD Discharge: Date of : 41 Report #: [id number] THIS REPORT FOR: //name// cc: Michelle Salas Maggie M. DO ~ THIS REPORT FOR: //name// CC: Amol Salas DO DATE OF SERVICE: 02/27/2020 CARDIOLOGY CONSULTATION HISTORY OF PRESENT ILLNESS: The patient is a 74-year-old white female who was admitted to [place] 4 days ago when she complained of burning on urination. She is found to have evidence of renal insufficiency and hyperkalemia. She was treated with antibiotics and the burning resolved. Now however she complains of pain in her left armpit area. There is no swelling or rash. She denied falling. She also noticed a pain in her chest. It feels tender. There is no radiation of the pain. She denied any shortness of breath. She notes occasional irregular heartbeat. She has had no cough or fever. She has had no bleeding. PAST MEDICAL HISTORY: Significant for appendectomy, cholecystectomy, hysterectomy, hypertension, diabetes. CURRENT MEDICATIONS: Consist of insulin, Neurontin, Synthroid, lisinopril, omeprazole, simvastatin. ALLERGIES: She has no known drug allergies. FAMILY HISTORY: Negative for heart disease. SOCIAL HISTORY: She is . She and her live in [place]. No smoking or alcohol abuse. REVIEW OF SYSTEMS: She is overweight, being 5 feet 2 inches and 203 pounds. No history of snoring, stroke or asthma. She has a lot of indigestion. No liver disease, chronic skin condition or psychiatric illness. PHYSICAL EXAMINATION: GENERAL: Revealed a large, elderly female lying in bed. She appeared in no distress. VITAL SIGNS: She had a blood pressure of 140/70, pulse is 80, [place] [address] CONSULTATION Name: RUPINDER BRADEN Room: [address]#: [id number] Admission: 02/23/20 Attend Phys: Amol Rodriguez MD Discharge: Date of : 41 Report #: [id number] HEENT: She is anicteric. Conjunctivae pink. Mucous membranes moist. NECK: Neck veins do not appear distended. No carotid bruits. CHEST: Clear to auscultation. She was tender on palpation of the sternum. CARDIOVASCULAR: Regular rate and rhythm without murmur. ABDOMEN: Obese. EXTREMITIES: Had no pitting edema. MUSCULOSKELETAL: There is some tenderness along the left axillary area. No swelling. LABORATORY WORK: Her lab work, she had a normal sinus rhythm, nonspecific T-wave changes. Her workup so far, she had an echocardiogram in 2018 that showed normal ejection fraction, aortic sclerosis. She had a nuclear stress test in 2018 that showed no evidence of ischemia. There was normal left ventricular function. X-RAYS: Portable chest x-ray showed normal heart size, clear lung hutchinson. She actually had a CT scan of the abdomen and pelvis without contrast that showed no acute abnormality, no bowel obstruction. No ascites. LABORATORY WORK: Sodium 123, potassium 6.0, creatinine is 2.1. Her liver function studies were normal. Troponins all 0.06. Her TSH is 0.7. Her white blood cell count 5.8, hemoglobin 7. IMPRESSION AND RECOMMENDATIONS: 1. Chest pain. Atypical for angina. Suspect noncardiac. Recommend no further cardiac evaluation. 2. Diabetes. 3. Hypertension. The patient was taken off of WILY inhibitor because of hyperkalemia. 4. Obesity. 5. History of lymphoma, treated with chemotherapy. 6. Dysuria. 7. Renal insufficiency. The patient is being followed by Nephrology. 8. Anemia. No history of bleeding. <ELECTRONICALLY SIGNED> By: Lucho Trinh MD, [facility] 02/27/20 1147 0900 1053David Demarco Trinh MD, FACC /nt
[2020-02-27 16:06] VITALS: BP 146/56
[2020-02-27 20:20] VITALS: BP 162/73
[2020-02-28] VITALS: BP 144/63
[2020-02-28 04:00] VITALS: BP 116/53
[2020-02-28 04:59] LABS: ABSOLUTE EOSINOPHILS 0.2 thou/uL (0.0-0.7); ABSOLUTE LYMPHOCYTES 0.4 thou/uL (0.8-5.3); ABSOLUTE MONOCYTES 0.6 thou/uL (0.0-1.2); ABSOLUTE NEUTROPHILS 5.4 thou/uL (1.6-8.1); BASOPHILS 0.7 %; EOSINOPHILS 3.5 %; HEMATOCRIT 21.7 % (37.0-47.0); HEMOGLOBIN 7.4 gm/dL (12.0-15.0); MCHC 33.9 g/dL (28.0-37.0); MCV 76.7 fL (80.0-100.0); MONOCYTES 9.4 %; MPV 7.6 fl. (7.2-11.1); NUCLEATED RBCS 0 /100WBC; PLATELET COUNT* 201 thou/uL (150-400); POLYS 80.4 %; RBC 2.83 mil/uL (4.20-5.00); WBC 6.7 thou/uL (4.0-11.0)
[2020-02-28 05:34] LABS: ANION GAP 8 mmol/L (7-16); BUN 19 mg/dL (7-18); CALCIUM 8.4 mg/dL (8.5-10.1); CHLORIDE 101 mmol/L (98-107); CO2 23 mmol/L (21-32); CREATININE 1.4 mg/dL (0.6-1.3); GLUCOSE 124 mg/dL (70-99); PHOSPHORUS* 3.2 mg/dL (2.5-4.9); POTASSIUM 4.7 mmol/L (3.5-5.1); SODIUM 132 mmol/L (136-145); TROPONIN-I LEVEL <0.06 ng/mL (<0.06)
[2020-02-28 07:30] VITALS: BP 120/76
[2020-02-28] MEDS ORDERED: HYDROCODON-ACE1 EAC7 PO ×2 (08:11)
[2020-02-28] MEDS ORDERED: MACROBID 100 M100 M1 PO ×2 (08:11)
[2020-02-28] MEDS ORDERED: ACYCLOVIR 200200 MG PO ×2 (08:11)
--- NOTE | 2020-02-28 09:32 | EKG ---
[place] [address] ELECTROCARDIOGRAM REPORT Name: RUPINDER BRADEN Room: [address] IN ..#: [id number] Admission: 02/23/20 Attend Phys: Amol Rodriguez, Discharge: Date of : 41 Date of Service: 02/26/202030 Report #: [id number] THIS REPORT FOR: //name// [facility] Test Date: 2020-02-26 Test Time: 20:31:21 Pat Name: RUPINDER BRADEN Department: Room: [address] Gender: F Clay Stain Mixer: [email or web address] : 1945 Requested By: Amol Rodriguez Order Number: [id number] Reading MD: Lucho Trinh Measurements Intervals [place] Rate: 76 P: 34 [place]: 185 QRS: -40 QRSD: 105 T: 17 QT: 408 QTc: 459 Interpretive Statements Sinus rhythm inverted t waves noted late transition Probable left ventricular hypertrophy Anterior Q waves, possibly due to LVH Baseline wander in lead(s) V5 Compared to ECG 02/24/2020 09:48:38 no change Electronically Signed On 02-28-2020 9:32:05 CDT by Lucho Trinh [email or web address] <ELECTRONICALLY SIGNED> By: Lucho Trinh MD, FACC 02/28/20931 30 30 Lucho Trinh MD, FAC /EPI
[2020-02-28 11:00] VITALS: BP 116/53
[2020-02-28 11:29] VITALS: BP 116/53
--- NOTE | 2020-03-01 09:54 | CON ---
[address] [address] CONSULTATION Name: RUPINDER BRADEN [place] Room: [address]#: [id number] Admission: 02/23/20 Attend Phys: Amol Rodriguez MD Discharge: 02/28/20 Date of : 41 Report #: [id number] THIS REPORT FOR: //name// cc: Michelle Salas Maggie M. DO THIS REPORT FOR: //name// CC: Amol Salas DATE OF SERVICE: 02/24/2020 CONSULTING PHYSICIAN: Amol Rodriguez MD NEPHROLOGY CONSULTATION REASON FOR NEPHROLOGY CONSULTATION: Hyperkalemia, hyponatremia and acute kidney injury on chronic kidney disease. REASON FOR ADMISSION: Hyperkalemia, hyponatremia and acute kidney injury. HISTORY OF PRESENT ILLNESS: This is a 74-year-old female with past medical history of lymphoma. She was sent over from Oncology office because of low sodium, high potassium and elevated creatinine. She has past medical history of chronic kidney disease. Her baseline creatinine is around 1.2-1.3, but it was running around 1.7 in September and was 2.0 yesterday. Her sodium was 123 yesterday and her potassium was 6.0 yesterday. She has been having diarrhea for the past few days. She also takes lisinopril. She does not take any NSAIDs. Her renal ultrasound was unremarkable. She was started on IV fluids yesterday. Her sodium is better at 127, potassium is normal at 5.2 and creatinine is better at 1.9. She also feels better, but she is still having diarrhea, about 3 small bowel movements since this morning. She was admitted last in June of this year with postherpetic neuralgia and E. faecalis UTI. ALLERGIES: OXYBUTYNIN. REVIEW OF SYSTEMS: As mentioned in history of present illness, otherwise 10-point review of systems done, negative. The patient has been eating and drinking well at home. HOME MEDICATIONS: Include acetaminophen, lisinopril 20 mg a day, simvastatin, omeprazole, MiraLax, insulin glargine, levothyroxine, docusate sodium. PAST MEDICAL AND SURGICAL HISTORY: Includes diabetes type 2; hypothyroidism; lymphoma, details not known, diagnosed in 2019 as per the patient; GERD; hypertension; cholecystectomy; appendectomy ____ [place] [address] CONSULTATION Name: RUPINDER BRADEN Room: [address]#: [id number] Admission: 02/23/20 Attend Phys: Amol Rodriguez MD Discharge: 02/28/20 Date of : 41 Report #: [id number] FAMILY HISTORY: Noncontributory, was reviewed. SOCIAL HISTORY: She does not smoke or drink alcohol or use illicit drugs. PHYSICAL EXAMINATION: VITAL SIGNS: Blood pressure is 137/59, respiratory rate is 18, pulse rate is 97, temperature 36.9 and her pulse ox is 93% on room air. GENERAL: She is awake, alert, oriented x 3. HEAD AND EYES: Atraumatic and normocephalic. Conjunctivae normal. EARS, NOSE, AND THROAT: Normal ears and nose. Mucous membranes are slightly dry. NECK: No JVD. CHEST: Bilaterally clear to auscultation. No crackles or wheezing anteriorly. CARDIOVASCULAR: S1, S2 normal. No murmurs. ABDOMEN: Soft, nondistended, nontender. Bowel sounds are present. EXTREMITIES: Lower extremities, there is no lower extremity edema. SKIN: Warm and dry. NEUROLOGICAL FUNCTION: Grossly intact. PSYCHOLOGIC: Mood and affect seems to be normal. LABORATORY DATA: Hemoglobin 8.1, WBC 6.8, platelet count is 213. Sodium is 127, better from 123; potassium is 5.2, better from 6.0; creatinine 1.9, better from 2.0 and other labs were reviewed. IMAGING: Renal ultrasound and chest x-ray were reviewed. ASSESSMENT: 1. Acute kidney injury on chronic kidney disease, stage 3A: Baseline creatinine around 1.2-1.3, although was 1.7 in September and creatinine 2.0 on admission. Acute kidney injury was because of volume depletion because of diarrhea and use of lisinopril. Renal ultrasound was unremarkable except for left renal simple cyst. UA actually looks contaminated. 2. Hyponatremia due to volume depletion. 3. Hyperkalemia due to volume depletion and lisinopril use and hyperglycemia. 4. Hyperglycemia, history of diabetes. She has diabetes type 2. We will defer to primary team for management. 5. Hypertension. Blood pressure seems to be controlled. 6. She has history of lymphoma, which was diagnosed in 2019, resolved as per the patient. As per the patient, she is in remission. Details again not known. PLAN: 1. I had placed her on bicarbonate drip yesterday. There is no need for bicarbonate drip now. We will change her to normal saline at 75 mL an hour. 2. She has been having some diarrhea. We will defer management and evaluation [place] [address] CONSULTATION Name: RUPINDER BRADEN Room: [address]#: [id number] Admission: 02/23/20 Attend Phys: Amol Rodriguez MD Discharge: 02/28/20 Date of : 41 Report #: [id number] 3. Continue to monitor labs. They are improving so far. 4. Avoid hypotension. Keep holding lisinopril. Try to avoid nephrotoxic agents and we will follow with you. Check morning labs. 5. Discussed with the patient as well as the patient's nurse. <ELECTRONICALLY SIGNED> By: Magda Sandhu MD 03/01/20 0954 0852 0939Magda Sandhu MD /nt
== END 2020-02-28 13:00 | disposition home health service (06) | DRG 640 ==
LOC: M.ERS 11:43 → M.TBA-ER 12:34 → M.2W 12:34
PROVIDERS: Emergency Medicine Emergency Medical Services; Family Medicine; Internal Medicine; ADMIT Internal Medicine; ATTEND Internal Medicine
DX: E86.0 Dehydration (principal); N17.0 Acute kidney failure with tubular necrosis; N39.0 Urinary tract infection, site not specified; C85.90 Non-Hodgkin lymphoma, unspecified, unspecified site; E87.1 Hypo-osmolality and hyponatremia; E87.5 Hyperkalemia; E03.9 Hypothyroidism, unspecified; I88.0 Nonspecific mesenteric lymphadenitis; B95.2 Enterococcus as the cause of diseases classified elsewhere; E11.65 Type 2 diabetes mellitus with hyperglycemia; E11.22 Type 2 diabetes mellitus with diabetic chronic kidney disease; B02.9 Zoster without complications; D64.9 Anemia, unspecified; K21.9 Gastro-esophageal reflux disease without esophagitis; K57.30 Diverticulosis of large intestine without perforation or abscess without bleeding; R07.9 Chest pain, unspecified; E66.9 Obesity, unspecified; I12.9 Hypertensive chronic kidney disease with stage 1 through stage 4 chronic kidney disease, or unspecified chronic kidney disease; N18.31 Chronic kidney disease, stage 3a; Z20.828 Contact with and (suspected) exposure to other viral communicable diseases; Z90.49 Acquired absence of other specified parts of digestive tract; Z88.8 Allergy status to other drugs, medicaments and biological substances; Z79.4 Long term (current) use of insulin; Z79.899 Other long term (current) drug therapy; Z90.710 Acquired absence of both cervix and uterus; Z68.38 Body mass index [BMI] 38.0-38.9, adult; Z92.21 Personal history of antineoplastic chemotherapy

== ENCOUNTER 2020-02-29 15:32 | Inpatient (IN) | payer OTHER ==
[~2020-02-29] VITALS: Ht 160 cm; Wt 94.3 kg
[~2020-02-29 15:32] MED LIST changes: +ACYCLOVIR 200200 MG PO; +HYDROCODON-ACE1 EAC7 PO; +MACROBID 100 M100 M1 PO
[2020-02-29 16:13] VITALS: BP 136/59
[2020-02-29 16:46] LABS: URINE BILIRUBIN NEGATIVE (Negative); URINE BLOOD NEGATIVE (Negative); URINE CLARITY SL CLOUDY; URINE COLOR YELLOW; URINE GLUCOSE-RANDOM NEGATIVE (Negative); URINE KETONES NEGATIVE (Negative); URINE LEUKOCYTES-REFLEX 1+ (Negative); URINE NITRITE-REFLEX NEGATIVE (Negative); URINE PROTEIN 1+ (Negative); URINE UROBILINOGEN 0.2 E.U./dl (0.2-1.0)
[2020-02-29 16:58] LABS: HEMOGLOBIN 8.3 gm/dL (12.0-15.0); MCH 25.6 pg (26.0-34.0); MCHC 33.3 g/dL (28.0-37.0); MCV 76.9 fL (80.0-100.0); MPV 7.5 fl. (7.2-11.1); NUCLEATED RBCS 0 /100WBC; PLATELET COUNT* 216 thou/uL (150-400); RBC 3.25 mil/uL (4.20-5.00); RDW-CV 17.4 % (10.5-14.5)
[2020-02-29 17:02] LABS: WBC 22.8 thou/uL (4.0-11.0)
[2020-02-29 17:07] LABS: APTT 29.5 Seconds (25.0-31.3); INR 1.1; PROTIME 11.3 Seconds (9.20-11.50)
[2020-02-29 17:08] LABS: CALCIUM 8.6 mg/dL (8.5-10.1); CREATININE 1.9 mg/dL (0.6-1.3); POTASSIUM 4.1 mmol/L (3.5-5.1)
[2020-02-29 17:08] LABS: BACTERIA-REFLEX >30 Many /HPF (None Seen); CASTS None Seen /LPF (None Seen); CRYSTALS None Seen /LPF (None Seen); SQUAMOUS 4-10 Moderate /LPF (0-3); URINE RBC 3-10 Few /HPF (0-2); URINE WBC-REFLEX >25 Many /HPF (0-5); WBC CLUMPS Moderate (None Seen)
[2020-02-29 17:12] LABS: ALBUMIN 3.2 g/dL (3.4-5.0); MAGNESIUM 1.4 mg/dL (1.8-2.4); TOTAL BILIRUBIN 0.4 mg/dL (<0.1-1.0); TOTAL PROTEIN 6.5 g/dL (6.4-8.2)
[2020-02-29 17:53] LABS: ABSOLUTE LYMPHOCYTES 0.2 thou/uL (0.8-5.3); ABSOLUTE MONOCYTES 0.9 thou/uL (0.0-1.2); ABSOLUTE NEUTROPHILS 21.7 thou/uL (1.6-8.1); ANISOCYTOSIS 1+; MICROCYTES 1+; PLATELET ESTIMATE ADEQUATE
[2020-02-29 17:54] LABS: OVALOCYTES Occasional
[2020-02-29 19:52] VITALS: BP 120/52
[2020-02-29 20:30] VITALS: BP 108/42
[2020-03-01] VITALS (8 sets, daily range): BP systolic 98–152; BP diastolic 42–87
[2020-03-01 04:32] LABS: MCH 25.7 pg (26.0-34.0); MCHC 32.7 g/dL (28.0-37.0); MCV 78.5 fL (80.0-100.0); MPV 7.8 fl. (7.2-11.1); RBC 2.42 mil/uL (4.20-5.00); RDW-CV 17.5 % (10.5-14.5); WBC 14.2 thou/uL (4.0-11.0)
[2020-03-01 04:35] LABS: HEMOGLOBIN 6.2 gm/dL (12.0-15.0)
[2020-03-01 04:39] LABS: CALCIUM 7.3 mg/dL (8.5-10.1); CREATININE 1.9 mg/dL (0.6-1.3)
[2020-03-01 04:43] LABS: ALBUMIN 2.4 g/dL (3.4-5.0); POTASSIUM 5.4 mmol/L (3.5-5.1); TOTAL BILIRUBIN 0.3 mg/dL (<0.1-1.0); TOTAL PROTEIN 5.3 g/dL (6.4-8.2)
[2020-03-01 09:16] LABS: CALCIUM 7.4 mg/dL (8.5-10.1); CREATININE 1.9 mg/dL (0.6-1.3); POTASSIUM 5.2 mmol/L (3.5-5.1)
--- NOTE | 2020-03-01 10:15 | EKG ---
[place] [address] ELECTROCARDIOGRAM REPORT Name: RUPINDER BRADEN Room: [address] IN ..#: [id number] Admission: 02/29/20 Attend Phys: Evie Bryant, Discharge: Date of : 41 Date of Service: 02/29/20 1725 Report #: [id number] THIS REPORT FOR: //name// [facility] ED Test Date: 2020-02-29 Test Time: 17:25:08 Pat Name: RUPINDER BARDEN Department: Room: [facility] Gender: F Corporate Director: NIKKY : 1945 Requested By: Oriana Carias Order Number: [id number] MD: Lucho Trinh Measurements Intervals [place] Rate: 114 P: 55 [place]: 165 QRS: -39 QRSD: 102 T: 74 QT: 327 QTc: 451 Interpretive Statements Sinus tachycardia left axis poor r wave progression Left ventricular hypertrophy Compared to ECG 02/26/2020 20:31:21 Sinus rhythm no longer present Electronically Signed On 03-01-2020 10:15:18 CDT by Lucho Trinh [email or web address] <ELECTRONICALLY SIGNED> By: Lucho Trinh MD, FAC 03/01/20 1015 1725 1725 Lucho Trinh MD, [facility] /EPI
[2020-03-02 00:49] VITALS: BP 149/55
[2020-03-02 04:10] VITALS: BP 157/60
[2020-03-02 05:00] LABS: HEMATOCRIT 23.9 % (37.0-47.0); HEMOGLOBIN 8.1 gm/dL (12.0-15.0); MCH 26.5 pg (26.0-34.0); MCHC 33.9 g/dL (28.0-37.0); MCV 78.3 fL (80.0-100.0); RBC 3.05 mil/uL (4.20-5.00); RDW-CV 17.6 % (10.5-14.5); WBC 8.7 thou/uL (4.0-11.0)
[2020-03-02 05:34] LABS: ALBUMIN 2.8 g/dL (3.4-5.0); CALCIUM 8.1 mg/dL (8.5-10.1); CREATININE 1.6 mg/dL (0.6-1.3); MAGNESIUM 1.8 mg/dL (1.8-2.4); POTASSIUM 4.7 mmol/L (3.5-5.1); TOTAL BILIRUBIN 0.3 mg/dL (<0.1-1.0); TOTAL PROTEIN 6.2 g/dL (6.4-8.2)
[2020-03-02 07:48] VITALS: BP 154/65
[2020-03-02 12:18] VITALS: BP 145/66
[2020-03-02 20:00] VITALS: BP 163/70
[2020-03-02 22:00] VITALS: BP 164/65
[2020-03-03 04:09] LABS: HEMATOCRIT 22.2 % (37.0-47.0); HEMOGLOBIN 7.6 gm/dL (12.0-15.0); MCH 26.7 pg (26.0-34.0); MCHC 34.1 g/dL (28.0-37.0); MCV 78.3 fL (80.0-100.0); MPV 8.1 fl. (7.2-11.1); RBC 2.84 mil/uL (4.20-5.00); WBC 7.1 thou/uL (4.0-11.0)
[2020-03-03 04:21] LABS: CALCIUM 8.3 mg/dL (8.5-10.1); CREATININE 1.7 mg/dL (0.6-1.3); MAGNESIUM 1.6 mg/dL (1.8-2.4); POTASSIUM 4.7 mmol/L (3.5-5.1)
[2020-03-03 07:45] VITALS: BP 145/71
[2020-03-03 16:00] VITALS: BP 172/76
[2020-03-04 00:30] VITALS: BP 164/69
[2020-03-04 04:46] LABS: HEMATOCRIT 23.4 % (37.0-47.0); HEMOGLOBIN 7.7 gm/dL (12.0-15.0); MCH 25.8 pg (26.0-34.0); MCHC 32.9 g/dL (28.0-37.0); MCV 78.4 fL (80.0-100.0); MPV 7.9 fl. (7.2-11.1); RBC 2.98 mil/uL (4.20-5.00); RDW-CV 17.4 % (10.5-14.5); WBC 5.9 thou/uL (4.0-11.0)
[2020-03-04 04:53] LABS: CALCIUM 8.7 mg/dL (8.5-10.1); CREATININE 1.6 mg/dL (0.6-1.3); MAGNESIUM 1.5 mg/dL (1.8-2.4); POTASSIUM 4.4 mmol/L (3.5-5.1)
[2020-03-04 15:46] VITALS: BP 161/72
[2020-03-04 21:20] VITALS: BP 164/59
[2020-03-05 04:10] LABS: HEMATOCRIT 23.7 % (37.0-47.0); MCH 26.4 pg (26.0-34.0); MCHC 33.7 g/dL (28.0-37.0); MCV 78.2 fL (80.0-100.0); MPV 7.8 fl. (7.2-11.1); RBC 3.03 mil/uL (4.20-5.00); WBC 6.9 thou/uL (4.0-11.0)
[2020-03-05 04:31] LABS: ALBUMIN 2.9 g/dL (3.4-5.0); CALCIUM 9.1 mg/dL (8.5-10.1); CREATININE 1.6 mg/dL (0.6-1.3); MAGNESIUM 1.4 mg/dL (1.8-2.4); POTASSIUM 3.8 mmol/L (3.5-5.1); TOTAL BILIRUBIN 0.3 mg/dL (<0.1-1.0); TOTAL PROTEIN 6.7 g/dL (6.4-8.2)
[2020-03-05 07:30] VITALS: BP 160/76
[2020-03-05 13:41] LABS: URINE BILIRUBIN NEGATIVE (Negative); URINE BLOOD TRACE (Negative); URINE CLARITY CLEAR; URINE COLOR YELLOW; URINE GLUCOSE-RANDOM 1+ (Negative); URINE KETONES NEGATIVE (Negative); URINE LEUKOCYTES-REFLEX TRACE (Negative); URINE NITRITE-REFLEX NEGATIVE (Negative); URINE PROTEIN NEGATIVE (Negative); URINE UROBILINOGEN 0.2 E.U./dl (0.2-1.0)
[2020-03-05 14:08] LABS: CASTS None Seen /LPF (None Seen); CRYSTALS None Seen /LPF (None Seen); SQUAMOUS 0-3 Few /LPF (0-3); URINE RBC 0-2 Rare /HPF (0-2); URINE WBC-REFLEX 6-15 Few /HPF (0-5)
[2020-03-05 15:48] VITALS: BP 151/72
[2020-03-05 19:50] VITALS: BP 175/79
[2020-03-06 00:33] VITALS: BP 163/76
[2020-03-06 04:02] LABS: HEMATOCRIT 28.4 % (37.0-47.0); HEMOGLOBIN 9.2 gm/dL (12.0-15.0); MCH 25.4 pg (26.0-34.0); MCHC 32.2 g/dL (28.0-37.0); MCV 78.9 fL (80.0-100.0); MPV 7.7 fl. (7.2-11.1); RBC 3.6 mil/uL (4.20-5.00); RDW-CV 17.2 % (10.5-14.5); WBC 8.8 thou/uL (4.0-11.0)
[2020-03-06 04:14] LABS: CALCIUM 9.3 mg/dL (8.5-10.1); CREATININE 1.7 mg/dL (0.6-1.3); MAGNESIUM 1.4 mg/dL (1.8-2.4); POTASSIUM 3.8 mmol/L (3.5-5.1)
[2020-03-06 08:00] VITALS: BP 142/75
[2020-03-06 11:35] LABS: URINE BILIRUBIN NEGATIVE (Negative); URINE BLOOD TRACE (Negative); URINE CLARITY SL CLOUDY; URINE COLOR YELLOW; URINE GLUCOSE-RANDOM TRACE (Negative); URINE KETONES NEGATIVE (Negative); URINE LEUKOCYTES-REFLEX TRACE (Negative); URINE NITRITE-REFLEX NEGATIVE (Negative); URINE PROTEIN TRACE (Negative); URINE UROBILINOGEN 0.2 E.U./dl (0.2-1.0)
[2020-03-06 11:45] LABS: BACTERIA-REFLEX 1-9 Few /HPF (None Seen); CASTS None Seen /LPF (None Seen); CRYSTALS None Seen /LPF (None Seen); MUCUS None Seen strn/LPF (None Seen); SQUAMOUS 4-10 Moderate /LPF (0-3); URINE RBC 3-10 Few /HPF (0-2); URINE WBC-REFLEX 0-5 Rare /HPF (0-5)
[2020-03-06 16:00] VITALS: BP 164/71
[2020-03-06 20:30] VITALS: BP 178/77
[2020-03-06] MEDS ORDERED: LINEZOLID600 MG PO ×2 (21:04)
[2020-03-06] MEDS ORDERED: GLYBURIDE 5 MG T5 M1 PO ×2 (21:04)
[2020-03-06] MEDS ORDERED: FERREX 150 PLU1 EAC1 PO ×2 (21:04)
[2020-03-07 09:35] VITALS: BP 134/64
[2020-03-07 10:49] VITALS: BP 134/64
[2020-03-07 12:27] VITALS: BP 134/64
[2020-03-07 15:04] VITALS: BP 134/64
== END 2020-03-07 14:17 | disposition home health service (06) | DRG 871 ==
LOC: M.ERS 15:32 → M.TBA-ER 18:03 → M.2W 18:03 → M.ORTHSURG 18:03 → M.2W 20:22 → M.ORTHSURG 03-02 22:29
PROVIDERS: Nurse Practitioner Family; ADMIT Internal Medicine; ATTEND Internal Medicine
PROC: 30233N1 Transfusion of Nonautologous Red Blood Cells into Peripheral Vein, Percutaneous Approach (ICD-10-PCS; principal; 2020-03-01)
DX: A41.9 Sepsis, unspecified organism (principal); G92 Toxic encephalopathy; N39.0 Urinary tract infection, site not specified; N17.9 Acute kidney failure, unspecified; N18.30 Chronic kidney disease, stage 3 unspecified; E11.22 Type 2 diabetes mellitus with diabetic chronic kidney disease; E03.9 Hypothyroidism, unspecified; K21.9 Gastro-esophageal reflux disease without esophagitis; I12.9 Hypertensive chronic kidney disease with stage 1 through stage 4 chronic kidney disease, or unspecified chronic kidney disease; R65.20 Severe sepsis without septic shock; B95.2 Enterococcus as the cause of diseases classified elsewhere; D50.9 Iron deficiency anemia, unspecified; Z20.828 Contact with and (suspected) exposure to other viral communicable diseases; Z85.72 Personal history of non-Hodgkin lymphomas; Z90.49 Acquired absence of other specified parts of digestive tract; Z79.4 Long term (current) use of insulin; Z79.899 Other long term (current) drug therapy; Z88.8 Allergy status to other drugs, medicaments and biological substances

== ENCOUNTER 2020-04-02 06:02 | Inpatient (IN) | payer OTHER ==
[~2020-04-02] VITALS: Ht 157.5 cm; Wt 97.0 kg
[~2020-04-02 06:02] MED LIST changes: +FERREX 150 PLU1 EAC1 PO; +GLYBURIDE 5 MG T5 M1 PO; +LINEZOLID600 MG PO
[2020-04-02 06:18] VITALS: BP 161/69
[2020-04-02 07:06] LABS: ABSOLUTE LYMPHOCYTES 0.2 thou/uL (0.8-5.3); ABSOLUTE MONOCYTES 0.6 thou/uL (0.0-1.2); ABSOLUTE NEUTROPHILS 24.2 thou/uL (1.6-8.1); BASOPHILS 0.1 %; EOSINOPHILS 0.1 %; HEMATOCRIT 31.1 % (37.0-47.0); HEMOGLOBIN 9.8 gm/dL (12.0-15.0); LYMPHOCYTES 0.7 %; MCH 25.6 pg (26.0-34.0); MCHC 31.6 g/dL (28.0-37.0); MCV 80.9 fL (80.0-100.0); MONOCYTES 2.4 %; MPV 8.9 fl. (7.2-11.1); NUCLEATED RBCS 0 /100WBC; PLATELET COUNT* 194 thou/uL (150-400); POLYS 96.7 %; RBC 3.84 mil/uL (4.20-5.00); RDW-CV 18.4 % (10.5-14.5)
[2020-04-02 07:20] LABS: CALCIUM 8.8 mg/dL (8.5-10.1); CREATININE 2.1 mg/dL (0.6-1.3); POTASSIUM 5.1 mmol/L (3.5-5.1)
[2020-04-02 07:22] LABS: BE -5.3 mmol/L (-2 to +3); PCO2 29.6 mmHg (35.0-45.0); pH 7.409 (7.340-7.450)
[2020-04-02 07:25] LABS: ALBUMIN 3.3 g/dL (3.4-5.0); MAGNESIUM 1.6 mg/dL (1.8-2.4); TOTAL BILIRUBIN 0.5 mg/dL (<0.1-1.0); TOTAL PROTEIN 7.4 g/dL (6.4-8.2)
[2020-04-02 07:26] LABS: URINE BILIRUBIN NEGATIVE (Negative); URINE BLOOD 2+ (Negative); URINE CLARITY SL CLOUDY; URINE COLOR YELLOW; URINE GLUCOSE-RANDOM 1+ (Negative); URINE KETONES NEGATIVE (Negative); URINE NITRITE-REFLEX NEGATIVE (Negative); URINE PROTEIN 1+ (Negative); URINE UROBILINOGEN 0.2 E.U./dl (0.2-1.0)
[2020-04-02 07:27] LABS: URINE LEUKOCYTES-REFLEX 2+ (Negative)
[2020-04-02 07:27] LABS: APTT 25.8 Seconds (25.0-31.3); INR 1.1; PROTIME 11.3 Seconds (9.20-11.50)
[2020-04-02 07:58] LABS: SQUAMOUS >10 Many /LPF (0-3); URINE WBC-REFLEX >25 Many /HPF (0-5); WBC CLUMPS Moderate (None Seen)
[2020-04-02 07:59] LABS: CASTS None Seen /LPF (None Seen); MUCUS 0-3 Light strn/LPF (None Seen); URINE RBC 3-10 Few /HPF (0-2)
[2020-04-02 08:00] LABS: CRYSTALS None Seen /LPF (None Seen)
[2020-04-02 13:45] VITALS: BP 154/70
[2020-04-02 15:04] VITALS: BP 137/62
[2020-04-02 16:02] VITALS: BP 147/65
[2020-04-02 20:00] VITALS: BP 145/70
[2020-04-03] VITALS: BP 137/61
[2020-04-03 04:00] VITALS: BP 140/71
[2020-04-03 05:19] LABS: ABSOLUTE BASOPHILS 0.1 thou/uL (0.0-0.2); ABSOLUTE EOSINOPHILS 0.2 thou/uL (0.0-0.7); ABSOLUTE LYMPHOCYTES 0.7 thou/uL (0.8-5.3); ABSOLUTE MONOCYTES 0.9 thou/uL (0.0-1.2); ABSOLUTE NEUTROPHILS 17.5 thou/uL (1.6-8.1); BASOPHILS 0.3 %; EOSINOPHILS 0.9 %; HEMATOCRIT 24.9 % (37.0-47.0); HEMOGLOBIN 7.9 gm/dL (12.0-15.0); LYMPHOCYTES 3.5 %; MCH 25.9 pg (26.0-34.0); MONOCYTES 4.5 %; MPV 9.1 fl. (7.2-11.1); NUCLEATED RBCS 0 /100WBC; PLATELET COUNT* 163 thou/uL (150-400); POLYS 90.8 %; RBC 3.07 mil/uL (4.20-5.00); RDW-CV 18.6 % (10.5-14.5); WBC 19.3 thou/uL (4.0-11.0)
[2020-04-03 05:42] LABS: ALBUMIN 2.4 g/dL (3.4-5.0); CALCIUM 8.2 mg/dL (8.5-10.1); CREATININE 1.5 mg/dL (0.6-1.3); TOTAL BILIRUBIN 0.3 mg/dL (<0.1-1.0)
[2020-04-03 05:44] LABS: POTASSIUM 3.9 mmol/L (3.5-5.1)
[2020-04-03 08:30] VITALS: BP 129/51
[2020-04-03 12:00] VITALS: BP 146/68
[2020-04-03 16:00] VITALS: BP 162/76
--- NOTE | 2020-04-03 16:33 | EKG ---
[place] [address] ELECTROCARDIOGRAM REPORT Name: RUPINDER BRADEN Room: [address] ADM IN ..#: [id number] Admission: 04/02/20 Attend Phys: Sherwin Fernández Discharge: Date of : 41 Date of Service: 04/02/207[address] Report #: [id number] THIS REPORT FOR: //name// [facility] ED Test Date: 2020-04-02 Test Time: 07:17:34 Pat Name: RUPINDER BRADEN Department: Room: [facility] Gender: F Cryogenic Transport Driver: GINO : 1945 Requested By: Hawa Lee Order Number: [id number] MD: Claude Joyce Measurements Intervals [place] Rate: 110 P: 69 [place]: 166 QRS: -53 QRSD: 128 T: 100 QT: 355 QTc: 481 Interpretive Statements Sinus tachycardia LVH with IVCD, LAD and secondary repol abnrm Anterior ST elevation, probably due to LVH Borderline prolonged QT interval Compared to ECG 02/29/2020 17:25:08 Intraventricular conduction delay now more pronounced Early repolarization now present ST (T wave) deviation now present Poor R-wave progression no longer present Electronically Signed On 04-03-2020 16:33:33 LABOR CREW SUPERVISOR by Claude Joyce [email or web address] <ELECTRONICALLY SIGNED> By: Claude Joyce MD, [facility] 04/03/20 1633 6 6 Claude Joyce MD, [facility] /EPI
[2020-04-04] VITALS: BP 186/81
[2020-04-04 04:00] VITALS: BP 155/74
[2020-04-04 16:43] VITALS: BP 164/77
[2020-04-04 20:00] VITALS: BP 168/71
[2020-04-05 00:33] VITALS: BP 120/66
[2020-04-05 04:21] VITALS: BP 146/68
[2020-04-05] MEDS ORDERED: CEFDINIR300 MG PO (07:03)
[2020-04-05] MEDS ORDERED: BACTRIM DS TAB1 EAC1 PO (07:03)
[2020-04-05] MEDS ORDERED: MACROBID 100 M100 M2 PO (07:03)
[2020-04-05 08:00] VITALS: BP 134/73
[2020-04-05 08:32] VITALS: BP 146/68
[2020-04-05 09:12] LABS: HEMOGLOBIN 9.6 gm/dL (12.0-15.0); MCH 26.1 pg (26.0-34.0); MCHC 32.1 g/dL (28.0-37.0); MCV 81.1 fL (80.0-100.0); MPV 8.4 fl. (7.2-11.1); RBC 3.7 mil/uL (4.20-5.00); RDW-CV 19.3 % (10.5-14.5); WBC 8.6 thou/uL (4.0-11.0)
[2020-04-05 09:20] LABS: CALCIUM 8.4 mg/dL (8.5-10.1); CREATININE 1.4 mg/dL (0.6-1.3); POTASSIUM 4.4 mmol/L (3.5-5.1)
[2020-04-05 11:19] VITALS: BP 146/68
[2020-04-05 13:20] VITALS: BP 146/68
== END 2020-04-05 12:50 | disposition home health service (06) | DRG 871 ==
LOC: M.ERS 06:02 → M.2W 09:34 → M.TBA-ER 09:34 → M.2W 15:14
PROVIDERS: Internal Medicine; Personal Emergency Response Attendant; ADMIT Internal Medicine; ATTEND Internal Medicine
DX: A41.9 Sepsis, unspecified organism (principal); N17.0 Acute kidney failure with tubular necrosis; J15.6 Pneumonia due to other Gram-negative bacteria; N39.0 Urinary tract infection, site not specified; E87.1 Hypo-osmolality and hyponatremia; E87.5 Hyperkalemia; R00.0 Tachycardia, unspecified; E03.9 Hypothyroidism, unspecified; R65.20 Severe sepsis without septic shock; I10 Essential (primary) hypertension; K21.9 Gastro-esophageal reflux disease without esophagitis; M79.652 Pain in left thigh; M79.651 Pain in right thigh; E11.65 Type 2 diabetes mellitus with hyperglycemia; Z20.828 Contact with and (suspected) exposure to other viral communicable diseases; Z90.49 Acquired absence of other specified parts of digestive tract; Z79.4 Long term (current) use of insulin; Z79.899 Other long term (current) drug therapy; Z88.8 Allergy status to other drugs, medicaments and biological substances

== ENCOUNTER 2021-05-25 10:11 | Inpatient (IN) | payer OTHER ==
[~2021-05-25] VITALS: Ht 167.6 cm; Wt 86.6 kg
[~2021-05-25 10:11] MED LIST changes: +BACTRIM DS TAB1 EAC1 PO; +CEFDINIR300 MG PO; +MACROBID 100 M100 M2 PO
[2021-05-25 10:23] VITALS: BP 171/80
[2021-05-25 10:53] LABS: HEMATOCRIT 37.1 % (37.0-47.0); HEMOGLOBIN 12.6 gm/dL (12.0-15.0); MCH 29.7 pg (26.0-34.0); MCV 87.3 fL (80.0-100.0); MPV 7.7 fl. (7.2-11.1); NUCLEATED RBCS 0 /100WBC; PLATELET COUNT* 170 thou/uL (150-400); RBC 4.25 mil/uL (4.20-5.00); RDW-CV 13.8 % (10.5-14.5); WBC 8.1 thou/uL (4.0-11.0)
[2021-05-25 11:10] LABS: APTT 28.1 Seconds (25.0-31.3); INR 1.1; PROTIME 10.9 Seconds (9.20-11.50)
[2021-05-25 11:15] LABS: CALCIUM 8.9 mg/dL (8.5-10.1); CREATININE 1.4 mg/dL (0.6-1.3); POTASSIUM 4.6 mmol/L (3.5-5.1)
[2021-05-25 11:15] LABS: URINE BILIRUBIN NEGATIVE (Negative); URINE BLOOD 2+ (Negative); URINE CLARITY CLEAR; URINE COLOR YELLOW; URINE GLUCOSE-RANDOM 2+ (Negative); URINE KETONES TRACE (Negative); URINE LEUKOCYTES-REFLEX TRACE (Negative); URINE NITRITE-REFLEX NEGATIVE (Negative); URINE PROTEIN 2+ (Negative); URINE SPECIFIC GRAVITY 1.015 (1.005-1.030); URINE UROBILINOGEN 0.2 E.U./dl (0.2-1.0)
[2021-05-25 11:18] LABS: ABSOLUTE LYMPHOCYTES 0.5 thou/uL (0.8-5.3); ABSOLUTE MONOCYTES 0.3 thou/uL (0.0-1.2); ABSOLUTE NEUTROPHILS 7.3 thou/uL (1.6-8.1)
[2021-05-25 11:19] LABS: PLATELET ESTIMATE ADEQUATE
[2021-05-25 11:25] LABS: URINE RBC 3-10 Few /HPF (0-2); URINE WBC-REFLEX 6-15 Few /HPF (0-5)
[2021-05-25 11:26] LABS: ALBUMIN 3.4 g/dL (3.4-5.0); TOTAL BILIRUBIN 0.6 mg/dL (<0.1-1.0); TOTAL PROTEIN 7.5 g/dL (6.4-8.2)
[2021-05-25 11:26] LABS: BACTERIA-REFLEX None Seen /HPF (None Seen); CASTS None Seen /LPF (None Seen); CRYSTALS None Seen /LPF (None Seen); SQUAMOUS 4-10 Moderate /LPF (0-3)
--- NOTE | 2021-05-25 12:23 | EKG ---
[place] [address] ELECTROCARDIOGRAM REPORT Name: RUPINDER BRADEN Room: [facility]#: [id number] Admission: 05/25/21 Attend Phys: Discharge: Date of : 41 Date of Service: 05/25/21 1047 Report #: [id number] THIS REPORT FOR: //name// [facility] ED Test Date: 2021-05-25 Test Time: 10:47:04 Pat Name: RUPINDER BRADEN Department: Room: Gender: Reel System Operator: : 1945 Requested By: Kevin Redd Order Number: [id number] MD: Claude Joyce Measurements Intervals [place] Rate: 88 P: 54 [place]: 167 QRS: -52 QRSD: 134 T: 91 QT: 382 QTc: 463 Interpretive Statements Sinus rhythm Incomplete left bundle branch block Compared to ECG 04/02/2020 07:17:34 IVCD of the left type persists Sinus tachycardia no longer present Intraventricular conduction delay persists Early repolarization no longer present ST (T wave) deviation no longer present Electronically Signed On 05-25-2021 12:23:24 WEIGHT SHIFTER by Claude Joyce [email or web address] <ELECTRONICALLY SIGNED> By: Claude Joyce MD, FAC 05/25/21 1223 1047 1047 Claude Joyce MD, [facility] /EPI
[2021-05-25 17:00] VITALS: BP 159/83
[2021-05-25 21:00] VITALS: BP 150/76
[2021-05-26 01:00] VITALS: BP 156/79
[2021-05-26 05:00] VITALS: BP 149/72
[2021-05-26 09:38] VITALS: BP 146/72
[2021-05-26 12:29] LABS: ABSOLUTE EOSINOPHILS 0.1 thou/uL (0.0-0.7); ABSOLUTE LYMPHOCYTES 0.6 thou/uL (0.8-5.3); ABSOLUTE MONOCYTES 0.9 thou/uL (0.0-1.2); ABSOLUTE NEUTROPHILS 7.1 thou/uL (1.6-8.1); BASOPHILS 0.3 %; HEMATOCRIT 31.2 % (37.0-47.0); HEMOGLOBIN 11.1 gm/dL (12.0-15.0); LYMPHOCYTES 6.8 %; MCH 30.2 pg (26.0-34.0); MCHC 35.6 g/dL (28.0-37.0); MONOCYTES 10.4 %; MPV 7.9 fl. (7.2-11.1); NUCLEATED RBCS 0 /100WBC; PLATELET COUNT* 155 thou/uL (150-400); POLYS 81.5 %; RBC 3.67 mil/uL (4.20-5.00); RDW-CV 13.8 % (10.5-14.5); WBC 8.7 thou/uL (4.0-11.0)
[2021-05-26 12:49] LABS: ALBUMIN 2.8 g/dL (3.4-5.0); CALCIUM 7.9 mg/dL (8.5-10.1); CREATININE 1.4 mg/dL (0.6-1.3); MAGNESIUM 1.5 mg/dL (1.8-2.4); PHOSPHORUS* 2.5 mg/dL (2.5-4.9); POTASSIUM 3.8 mmol/L (3.5-5.1); TOTAL BILIRUBIN 0.5 mg/dL (<0.1-1.0); TOTAL PROTEIN 5.5 g/dL (6.4-8.2)
[2021-05-26 13:25] VITALS: BP 104/53
[2021-05-26 17:47] VITALS: BP 102/52
[2021-05-27 05:59] VITALS: BP 138/69
[2021-05-27 09:52] VITALS: BP 130/64
[2021-05-27 10:25] LABS: HEMATOCRIT 34.7 % (37.0-47.0); HEMOGLOBIN 11.7 gm/dL (12.0-15.0); MCH 29.9 pg (26.0-34.0); MCHC 33.7 g/dL (28.0-37.0); MCV 88.7 fL (80.0-100.0); MPV 8.9 fl. (7.2-11.1); RBC 3.92 mil/uL (4.20-5.00); RDW-CV 13.6 % (10.5-14.5); WBC 10.9 thou/uL (4.0-11.0)
[2021-05-27] MEDS ORDERED: TESSALON PERLE100 MG PO (10:25)
[2021-05-27 10:28] LABS: CALCIUM 8.4 mg/dL (8.5-10.1); CREATININE 1.8 mg/dL (0.6-1.3); POTASSIUM 3.9 mmol/L (3.5-5.1)
[2021-05-27] MEDS ORDERED: PREDNISONE 10 M10 MG PO (10:28)
[2021-05-27] MEDS ORDERED: PROAIR HFA8.5 GM INH (10:28)
[2021-05-27] MEDS ORDERED: LEVOFLOXACIN500 MG PO (10:28)
[2021-05-27 13:26] VITALS: BP 137/66
[2021-05-27 15:42] VITALS: BP 137/66
== END 2021-05-27 15:48 | disposition home health service (06) | DRG 871 ==
LOC: M.ERS 10:11 → M.TBA-ER 13:24
PROVIDERS: Emergency Medicine; ADMIT Internal Medicine; ATTEND Internal Medicine
DX: A41.89 Other specified sepsis (principal); U07.1 COVID-19; N17.0 Acute kidney failure with tubular necrosis; J12.82 Pneumonia due to coronavirus disease 2019; N39.0 Urinary tract infection, site not specified; E87.1 Hypo-osmolality and hyponatremia; E03.9 Hypothyroidism, unspecified; E86.0 Dehydration; K21.9 Gastro-esophageal reflux disease without esophagitis; E11.65 Type 2 diabetes mellitus with hyperglycemia; I50.9 Heart failure, unspecified; I11.0 Hypertensive heart disease with heart failure; Z20.822 Contact with and (suspected) exposure to COVID-19; Z90.49 Acquired absence of other specified parts of digestive tract; Z85.72 Personal history of non-Hodgkin lymphomas; Z90.710 Acquired absence of both cervix and uterus; Z88.8 Allergy status to other drugs, medicaments and biological substances; Z79.899 Other long term (current) drug therapy